=== PATIENT | female | born 1965 | race Caucasian/White ===

== ENCOUNTER 2020-02-02 12:50 | Outpatient (REF) | payer OTHER, SELFPAY ==
[2020-02-03 08:16] LABS: SARS COV2 IgG Negative (Negative)
== END 2020-02-02 12:51 | disposition home or self-care (01) ==
LOC: HO.LAB 12:50
PROVIDERS: PCP Internal Medicine; Visit Provider Internal Medicine
DX: Z20.828 Contact with and (suspected) exposure to other viral communicable diseases (principal)
CPT/HCPCS: 86769

== ENCOUNTER → 2020-07-28 11:15 | Outpatient (BNVA) | payer OTHER, SELFPAY | PROVIDERS: PCP Internal Medicine; Referring Provider Internal Medicine; Visit Provider Surgery | DX: E66.01 Morbid (severe) obesity due to excess calories (principal); R10.9 Unspecified abdominal pain | CPT/HCPCS: 99202 ==

== ENCOUNTER 2020-08-10 14:43 | Outpatient (REF) | payer OTHER, SELFPAY ==
[2020-08-10 16:20] LABS: MANUAL DIFF FLAG NO
[2020-08-10 16:25] LABS: Basophils Absolute Auto 0.1 X10*3/uL (0.0-0.2); Basophils Percent Auto 0.6 % (0-2); Eosinophils Absolute Auto 0.4 X10*3/uL (0.0-0.4); Eosinophils Percent Auto 4.4 % (0-4); Hematocrit 41.1 % (37-47); Hemoglobin 13.2 g/dl (12.0-16.0); Imm Gran Abs Auto 0.04 X10*3/uL (0.00-0.03); Imm Gran Pct Auto 0.5 % (0.0-0.4); Lymphocytes Absolute Auto 1.5 X10*3/uL (1.2-4.9); Mean Corpuscular HGB Conc 32.1 g/dl (31.0-35.0); Mean Corpuscular Hemoglobin 28.4 pg (27.0-33.0); Mean Corpuscular Volume 88.6 fL (80-98); Mean Platelet Volume 9.7 fL (9.4-12.3); Monocytes Absolute Auto 0.5 X10*3/uL (0.1-1.2); Monocytes Percent Auto 5.2 % (2-11); Neutrophils Absolute Auto 6.4 X10*3/uL (2.0-8.3); Neutrophils Percent Auto 72.3 % (45-73); Platelet Count 225 X10*3/uL (160-400); Red Blood Count 4.64 X10*6/uL (4.20-5.50); Red Cell Distribution Width 12.7 % (11.0-16.0); White Blood Count 8.8 X10*3/uL (4.8-10.8)
[2020-08-10 16:53] LABS: Alanine Aminotransferase 17 U/L (0-31); Alkaline Phosphatase 120 U/L (39-117); Anion Gap 13 (12-20); Aspartate Amino Transferase 17 U/L (5-31); Bilirubin Total 0.5 mg/dL (0.0-1.0); Blood Urea Nitrogen 10 mg/dL (9-16); C Reactive Protein 1.67 mg/dL (< or = 0.50); Calcium 9.2 mg/dL (8.4-10.2); Carbon Dioxide 27 mmol/L (22-29); Chloride 105 mmol/L (96-108); Estimated Glomerular Filt Rate > 60; Glucose Random 122 mg/dL (60-115); Potassium 3.7 mmol/L (3.3-5.1); Sodium 141 mmol/L (135-145); Total Protein 6.7 g/dL (6.5-8.0)
[2020-08-10 17:20] LABS: Thyroid Stimulating Hormone 1.39 uIU/mL (0.32-4.0)
[2020-08-10 17:22] LABS: Erythrocyte Sedimentation Rate 37 MM/HR (0-20)
[2020-08-10 17:51] LABS: Ferritin 59 ng/mL (10-250)
== END 2020-08-10 14:44 | disposition home or self-care (01) ==
LOC: HO.LAB 14:43
PROVIDERS: PCP Internal Medicine; Referring Provider Internal Medicine; Visit Provider Physician Assistant
DX: K62.5 Hemorrhage of anus and rectum (principal); R74.01 Elevation of levels of liver transaminase levels; R10.11 Right upper quadrant pain; R19.7 Diarrhea, unspecified; D64.9 Anemia, unspecified; K59.09 Other constipation
CPT/HCPCS: 36415; 80053; 82728; 84443; 85025; 85652; 86140; 99202

== ENCOUNTER 2020-08-11 09:08 | Outpatient (REF) | payer OTHER, SELFPAY ==
[2020-08-18 21:22] LABS: Calprotectin, Fecal 2620 mcg/g
== END 2020-08-11 09:09 | disposition home or self-care (01) ==
LOC: HO.LNP 09:08
PROVIDERS: Visit Provider Physician Assistant
DX: R19.7 Diarrhea, unspecified (principal)
CPT/HCPCS: 83993

== ENCOUNTER 2020-08-12 08:13 | Outpatient (REF) | payer OTHER, SELFPAY ==
--- NOTE | ~2020-08-12 | CT_ITS ---
EXAMINATION: CT ABDOMEN AND PELVIS WITHOUT CONTRAST CLINICAL INFORMATION: Abdominal pain. COMPARISON: Pelvic ultrasound and CT abdomen/pelvis dated 03/19/2019. TECHNIQUE: Multidetector volumetric imaging was performed from the superior aspect of the liver through the pubic symphysis. Sagittal and coronal reformatted images were obtained on the technologist's workstation. This CT examination was performed using dose optimization techniques as appropriate, variously including the following: *Automated exposure control *Adjustment of mA and/or kV according to patient size (this includes techniques or standardized protocols for targeted exams where dose is matched to indication/reason for exam; i.e. extremities or head) *Use of iterative reconstruction technique DLP: 867 mGy-cm FINDINGS: LUNG BASES: The visualized lung bases are unremarkable. LIVER, GALLBLADDER, AND BILIARY TREE: The liver is normal in size, shape, and attenuation. No focal hepatic lesion or biliary ductal dilatation is present. The gallbladder is unremarkable with no evidence of radiopaque gallstones, gallbladder wall thickening, or obvious pericholecystic inflammatory changes. PANCREAS: Unremarkable. SPLEEN: Unremarkable. ADRENAL GLANDS: Unremarkable. KIDNEYS AND URETERS: The kidneys are normal in size, shape, and attenuation. No hydronephrosis, hydroureter, or calculi seen. No perinephric stranding. BLADDER: Nondistended. GASTROINTESTINAL TRACT: Sigmoid diverticulosis with circumferential wall thickening and minimal adjacent fat stranding in the central pelvis, which could represent early diverticulitis in the appropriate clinical setting. No extraluminal air or organized fluid collection to suggest perforation or abscess formation. No small or large bowel obstruction. Unremarkable appendix. PERITONEAL CAVITY: No intra-abdominal free air or free fluid. No intra-abdominal mass or organized fluid collection/abscess formation. ABDOMINAL WALL: Anterior abdominal wall postsurgical changes. Fat-containing periumbilical hernia with a neck measuring up to 2.5 cm. Additional more superior fat-containing anterior abdominal wall hernia with a neck measuring up to 1.7 cm. No herniated bowel loops. No evidence of inflammation or ischemia. LYMPH NODES: Subcentimeter retroperitoneal lymph nodes are unchanged. Mild central mesenteric stranding is unchanged. VASCULAR: Unremarkable. PELVIC VISCERA: Status post hysterectomy. The previously seen cystic mass has been resected. OSSEOUS STRUCTURES: No concerning lytic or blastic osseous lesion. CT/CT abdomen pelvis wo con IMPRESSION: 1. Sigmoid diverticulosis with circumferential wall thickening and minimal adjacent stranding, new when compared to the prior examination. Findings could represent early diverticulitis in the appropriate clinical setting. No evidence of perforation or abscess formation. 2. Interval hysterectomy with resection of the previously seen complex cystic lesion. No new mass, lymphadenopathy, or ascites. 3. Anterior abdominal wall postsurgical change with small, fat-containing hernias. No associated bowel loops or inflammatory/ischemic change.
== END 2020-08-12 08:14 | disposition home or self-care (01) ==
LOC: HO.CT 08:13
PROVIDERS: PCP Internal Medicine; Visit Provider Surgery
DX: R10.9 Unspecified abdominal pain (principal)
CPT/HCPCS: 74176

== ENCOUNTER → 2020-08-18 14:08 | Outpatient (BNVA) | payer OTHER, SELFPAY | PROVIDERS: PCP Internal Medicine; Referring Provider Internal Medicine; Visit Provider Surgery | DX: K46.9 Unspecified abdominal hernia without obstruction or gangrene (principal); E66.01 Morbid (severe) obesity due to excess calories | CPT/HCPCS: 99212 ==

== ENCOUNTER 2020-08-25 11:55 | Day surgery (SDC) | payer OTHER, SELFPAY ==
--- NOTE | 2020-08-24 09:41 | P.CONAN_ITS ---
Documented by User: Sandra Barrios 08/24/20 09:55 HPI - Anesthesia Eval Consult details Narrative: 54yo F for Colonoscopy FORMERLY [facility] Active Problems Active Problems: All Active Problems (Updated 08/20/20 @ 10:27 by Randi Mckeon) Exposure to COVID-19 virus (Acute) Rectal Hemorrhage (Acute) Abdominal hernia (Acute) Abdominal pain (Acute) Morbid obesity (Acute) Past Medical History Medical History (Updated 08/20/20 @ 10:27 by Randi Mckeon) Abdominal hernia Abdominal pain Asthma History of anxiety HTN (hypertension) Impaired fasting blood sugar Morbid obesity Sleep apnea Family History Family History Mother Vascular dementia Colon cancer Father No problems noted. Surgical History Surgical History (Updated 08/20/20 @ 10:27 by Randi Mckeon) History of hernia surgery Hx of colonoscopy Hx of tonsillectomy Social History Social History Household Members: Children Alcohol intake: current Alcohol intake frequency: holidays/special occasions only Patient Tobacco Use Status: Former Tobacco user Advance Directives: No Advance Directives Information Provided: Yes Current occupational status: unemployed Meds Allergies Allergy/AdvReac Type Severity Reaction Status Date / Time No Known Allergies Allergy Verified 08/20/20 10:28 Home Medications Medication Instructions Recorded Confirmed Last Taken Type aspirin 81 mg tablet,delayed 81 mg PO DAILY 07/28/20 08/20/20 Unknown History release albuterol sulfate [ProAir HFA] 2 puff INHALATION Q4-6H PRN 08/20/20 08/20/20 Unknown History Exam Exam Date and Time: August 24, 2020 0941 Assessment and Plan Assessment Anesthesia Assessment: Chart Reviewed Documented by User: Matilde Costello 08/25/20 12:59 PMFSH Past Medical History Medical History (Updated 08/20/20 @ 10:27 by Randi Mckeon) Abdominal hernia Abdominal pain Asthma History of anxiety HTN (hypertension) Impaired fasting blood sugar Morbid obesity Sleep apnea Family History Family History Mother Vascular dementia Colon cancer Father No problems noted. Surgical History Surgical History (Updated 08/20/20 @ 10:27 by Randi Mckeon) History of hernia surgery Hx of colonoscopy Hx of tonsillectomy Social History Social History Household Members: Children Alcohol intake: current Alcohol intake frequency: holidays/special occasions only Patient Tobacco Use Status: Former Tobacco user Advance Directives: No Advance Directives Information Provided: Yes Current occupational status: unemployed Meds Allergies Allergy/AdvReac Type Severity Reaction Status Date / Time No Known Allergies Allergy Verified 08/20/20 10:28 Home Medications Medication Instructions Recorded Confirmed Last Taken Type aspirin 81 mg tablet,delayed 81 mg PO DAILY 07/28/20 08/20/20 Unknown History release albuterol sulfate [ProAir HFA] 2 puff INHALATION Q4-6H PRN 08/20/20 08/20/20 Unknown History Exam Airway Mallampati Class: II TM Dist: >3cm Neck ROM: Full Heart: rrr Lungs: cta Assessment and Plan Assessment Anesthesia Assessment: Anesthesia Plan Discussed and Chart Reviewed Final Anesthetic Review NPO: Yes ASA Class: III Final Preanesthetic Review: No Changes in Pt Med Stat and Consent Obtained/Reviewed Patient Risk: Intermediate Procedure Risk: Intermediate Anesthetic Plan Anesthetic Plan: MAC: Disposition: Standard PACU
[2020-08-25 13:20] VITALS: BP 142/66; PULSE 93; RESP 18; TEMP 36.1; O2SAT 98; BMI 47.4
[2020-08-25] MEDS: Lactated Ringers 1,000 ML 100 ML IVCONT (13:35)
--- NOTE | 2020-08-25 14:41 | MHC.SHP ---
Pre-Procedural Eval Section B Chief Complaint: Rectal Hemorrage Details of Present Illness: mother with colon cancer Relevant Family History (Specify if Yes): Yes Relevant Social History: None Present Medications: see Short Stay Collaborative assessment Medical History: Significant History (Abdominal hernia Abdominal pain Asthma History of anxiety HTN (hypertension) Impaired fasting blood sugar Morbid obesity Sleep apnea) History of Previous Operations: Relevant previous surgery/procedure and date(s) (History of hernia surgery Hx of colonoscopy Hx of tonsillectomy) Allergies: Allergies Allergy/AdvReac Type Severity Reaction Status Date / Time No Known Allergies Allergy Verified 08/20/20 10:28 Review of Systems Sugical H&P ROS: Negative: Constitution, Cardiovascular, Respiratory, Neurological, Psychiatric, Hem-Onc, Allergic/Immunologic, Gastrointestinal, Genitourinary, Musculoskeletal, Integumentary, Endocrine and Eyes/Ears/Nose/Throat Exam Surgical H&P Exam: Normal: HEENT, Normal: Heart, Normal: Lungs, Normal: Extremities, Normal: Abdomen, Normal: Skin and Normal: Neurological Plan Diagnosis/Plan: Unchanged I have reviewed the history and physical and performed a pertinent physical examination on my patient. No changes have occurred unless specified.
--- NOTE | 2020-08-25 14:44 | P.OP_ITS ---
Operative Note Operative Note Date of Service: 08/25/20 Narrative: Operative Information Procedure Description: Colonoscopy COLONOSCOPY Instrument: Olympus variable stiffness adult scope 190L Colonoscopy Monitoring: Vital signs and clinical assessment, continuous EKG monitoring, Pulse oximetry, Carbon Dioxide monitoring and blood pressure monitoring were done throughout the procedure. Colon withdrawal time was 12 minutes. Procedure: The patient was placed in the left lateral decubitis position and pre-procedure medications were administered. After a digital rectal examination of the ano-rectum, the video colonoscope was inserted into the rectum and advanced through the colon to the cecum/TI. The colonoscope was slowly withdrawn in a retrograde panoramic fashion and the colon mucosa was carefully examined including a retroflexed view of the rectum. Findings and interventions are described below. Procedure Difficulty:easy Findings: Terminal Ileum-normal, bx taken Cecum:normal, bx taken Ascending Colon: normal, bx taken Transverse Colon -normal, bx taken Descending Colon:normal, bx taken Sigmoid Colon: many diverticula noted, from anal verge to 25 cm there was erythema with scattered micro abscesses and slough with edema and granularity Rectum: Retroflexion with small internal hemorrhoids, grade I, granularity with erythema and edema, bx taken Anorectum - normal Colon preparation: [place] Bowel Preparation Scale Right colon; 2 Transverse colon: 3 Left colon; 3 (0 = Unprepared colon segment with mucosa not seen due to solid stool that cannot be cleared. 1 = Portion of mucosa of the colon segment seen, but other areas of the colon segment not well seen due to staining, residual stool and/or opaque liquid. 2 = Minor amount of residual staining, small fragments of stool and/or opaque liquid, but mucosa of colon segment seen well. 3 = Entire mucosa of colon segment seen well with no residual staining, small fragments of stool or opaque liquid) Impression and Post Procedure Diagnosis: internal hemorrhoids diverticular disease colitis Plan: High fiber diet leaflet Avoid straining at stool, epsom salts and sitz bath, anusol supps or cream Repeat Colonoscopy in 5 years or earlier if clinically indicated can commence mesalamine enema and assess response, stool sample sent for c diff today avoid nsaids Above findings were reviewed with the patient and relevant handouts were provided if indicated.
--- NOTE | 2020-08-25 14:44 | P.BOP_ITS ---
Brief Operative Note Date of Service: 08/25/20 Pre-op diagnosis: rectal bleeding Post-op diagnosis: same Procedure: see op note Surgeon: Sheela Brown MD Anesthesia: MAC Was an Accounts Payable Analyst used for this Procedure?: No Estimated blood loss (mL): 0 Condition: stable Disposition: PACU
[2020-08-25 15:24] VITALS: BP 111/62; PULSE 81; RESP 16; TEMP 36.4; O2SAT 97
[2020-08-25 15:36] VITALS: BP 117/69; PULSE 76; RESP 16; O2SAT 97
[2020-08-26 09:37] LABS: CDIFF Ag Negative (Negative); CDiff Toxin Negative (Negative)
[2020-08-26 09:38] LABS: CDIFF Internal ctrl Dots and bkg OK (V)
== END 2020-08-25 15:59 | disposition home or self-care (01) ==
PROVIDERS: PCP Internal Medicine; Visit Provider Internal Medicine Gastroenterology
PROC: 0DJD8ZZ Inspection of Lower Intestinal Tract, Via Natural or Artificial Opening Endoscopic (ICD-10-PCS; CPT 45378; principal; 2020-08-25 14:00)
DX: K62.5 Hemorrhage of anus and rectum (principal); R19.4 Change in bowel habit; K64.0 First degree hemorrhoids; K57.30 Diverticulosis of large intestine without perforation or abscess without bleeding; I10 Essential (primary) hypertension; J45.909 Unspecified asthma, uncomplicated; E66.01 Morbid (severe) obesity due to excess calories; Z68.42 Body mass index [BMI] 45.0-49.9, adult; Z79.82 Long term (current) use of aspirin; Z79.899 Other long term (current) drug therapy; Z80.0 Family history of malignant neoplasm of digestive organs
CPT/HCPCS: 45380; 87324; 87449; 88305

== ENCOUNTER → 2020-09-02 14:39 | Outpatient (BNVA) | payer OTHER, SELFPAY | PROVIDERS: PCP Internal Medicine; Referring Provider Internal Medicine; Visit Provider Surgery | DX: K46.9 Unspecified abdominal hernia without obstruction or gangrene (principal); E66.01 Morbid (severe) obesity due to excess calories; I10 Essential (primary) hypertension; R73.01 Impaired fasting glucose; Z68.42 Body mass index [BMI] 45.0-49.9, adult; Z87.891 Personal history of nicotine dependence | CPT/HCPCS: 99212 ==

== ENCOUNTER → 2020-09-06 08:27 | Outpatient (BNVA) | payer OTHER, SELFPAY | PROVIDERS: PCP Internal Medicine; Visit Provider Physician Assistant ==

== ENCOUNTER 2020-09-14 09:24 | Day surgery (SDC) | payer OTHER, SELFPAY ==
[2020-09-07 14:55] VITALS: BMI 47.4
--- NOTE | 2020-09-10 09:43 | P.CONAN_ITS ---
Documented by User: Sandra Maney 09/10/20 09:44 HPI - Anesthesia Eval Consult details Narrative: 54yo F for Repair of Incisional x2, Umbilicus & Epigastric Hernias with Mesh s/p colo with MAC 08/25/20 [facility]LY [facility] Active Problems Active Problems: All Active Problems (Updated 09/08/20 @ 11:10 by Janina Hernandez PA-C) Exposure to COVID-19 virus (Acute) Rectal Hemorrhage (Acute) Colitis (Acute) Abdominal hernia (Acute) Abdominal pain (Acute) Morbid obesity (Acute) Past Medical History Medical History Abdominal hernia Abdominal pain Asthma History of anxiety HTN (hypertension) Impaired fasting blood sugar Morbid obesity PONV (postoperative nausea and vomiting) Sleep apnea Family History Family History Mother Vascular dementia Colon cancer Father No problems noted. Surgical History Surgical History History of hernia surgery History of hysterectomy Hx of colonoscopy Hx of tonsillectomy Social History Social History Household Members: Children Are you a primary rn palliative care to a significant other at home: No Do you presently have visiting nurse or other home services: No Alcohol intake: current Alcohol intake frequency: holidays/special occasions only Patient Tobacco Use Status: Former Tobacco user Tobacco use type: Cigarette Use of substances other than those prescribed or required for medical reasons: No Have you been hit, kicked, punched, or otherwise hurt by someone within the past year? If so, by whom?: No Are you DNR?: No Advance Directives: No Advance Directives Information Provided: No Advance Directives on File: No Recently lost weight without trying: No Eating poorly because of decreased appetite: No Nutrition Risks: No Nutritional Risk Patient : No Current occupational status: unemployed Meds Allergies Allergy/AdvReac Type Severity Reaction Status Date / Time No Known Allergies Allergy Verified 09/02/20 14:55 Home Medications Medication Instructions Recorded Confirmed Last Taken Type aspirin 81 mg tablet,delayed 81 mg PO DAILY 0509/07/20 08/24/20 23:00 History release albuterol sulfate [ProAir HFA] 2 puff INHALATION Q4-6H PRN 08/20/20 09/07/20 Unknown History Exam Exam Date and Time: September 10, 2020 0943 Height,Weight and Vital Signs: Height 5 ft 5 in Weight 129.274 kg Assessment and Plan Assessment Anesthesia Assessment: Chart Reviewed Documented by User: Anton Aden MD 09/14/20 10:46 [facility] Past Medical History Medical History Abdominal hernia Abdominal pain Asthma History of anxiety HTN (hypertension) Impaired fasting blood sugar Morbid obesity PONV (postoperative nausea and vomiting) Sleep apnea Family History Family History Mother Vascular dementia Colon cancer Father No problems noted. Family history of problems with anesthesia: No Surgical History Surgical History History of hernia surgery History of hysterectomy Hx of colonoscopy Hx of tonsillectomy History of Problems with Anesthesia: Yes (PONV) Social History Social History Household Members: Children Are you a primary rn palliative care to a significant other at home: No Do you presently have visiting nurse or other home services: No Alcohol intake: current Alcohol intake frequency: holidays/special occasions only Patient Tobacco Use Status: Former Tobacco user Tobacco use type: Cigarette Use of substances other than those prescribed or required for medical reasons: No Have you been hit, kicked, punched, or otherwise hurt by someone within the past year? If so, by whom?: No Are you DNR?: No Advance Directives: No Advance Directives Information Provided: No Advance Directives on File: No Recently lost weight without trying: No Eating poorly because of decreased appetite: No Nutrition Risks: No Nutritional Risk Patient : No Current occupational status: unemployed Meds Allergies Allergy/AdvReac Type Severity Reaction Status Date / Time No Known Allergies Allergy Verified 09/02/20 14:55 Home Medications Medication Instructions Recorded Confirmed Last Taken Type aspirin 81 mg tablet,delayed 81 mg PO DAILY 07/28/20 09/07/20 08/24/20 23:00 History release albuterol sulfate [ProAir HFA] 2 puff INHALATION Q4-6H PRN 08/20/20 09/07/20 Unknown History Exam Airway Mallampati Class: III TM Dist: >3cm Loose/Missing/Broken Teeth: No Assessment and Plan Assessment Anesthesia Assessment: Anesthesia Plan Discussed and Chart Reviewed Final Anesthetic Review NPO: Yes ASA Class: III Final Preanesthetic Review: No Changes in Pt Med Stat, Meds/Allgs Chart Reviewed, Consent Obtained/Reviewed and Anes Risks/Benef Reviewed Patient Risk: Intermediate Procedure Risk: Low Anesthetic Plan Anesthetic Plan: GA and Agree w/ Assess. and Plan Disposition: Standard PACU
[2020-09-14] VITALS (13 sets, daily range): BP systolic 116–148; BP diastolic 51–69; PULSE 64–92; RESP 16–18; TEMP 36.5; O2SAT 93–99
[2020-09-14] MEDS: Scopolamine 1.5 MG PATCH.TD.3 TRANSDERMA (10:06)
--- NOTE | 2020-09-14 10:22 | MHC.SHP ---
Pre-Procedural Eval Section A Date of Service: 09/14/20 Section B Chief Complaint: Abdominal hernias Allergies: Allergies Allergy/AdvReac Type Severity Reaction Status Date / Time No Known Allergies Allergy Verified 09/02/20 14:55 Plan I have reviewed the history and physical and performed a pertinent physical examination on my patient. No changes have occurred unless specified.
[2020-09-14] MEDS: Lactated Ringers 1,000 ML 100 ML IVCONT (10:41)
--- NOTE | 2020-09-14 12:24 | PM.OP ---
Brief Operative Note Date of Service: 09/14/20 Pre-op diagnosis: incisional hernias x2 Post-op diagnosis: other ( incisional hernia on the supraumbilical area) Procedure: repair of incisional hernia on the supraumbilical area with Ventralex mesh, exploration of incision on the epigastric area Implants: mesh Surgeon: Casper Stinson MD Was an Valving Machine Operator used for this Procedure?: No Estimated blood loss (mL): 10 Pathology: none sent Condition: stable Disposition: PACU
--- NOTE | 2020-09-14 12:25 | P.OP_ITS ---
Operative Note Operative Note Date of Service: 09/14/20 Narrative: Preop diagnosis: Incisional hernias x2 Postop diagnosis: Incisional hernia on the supra umbilical area Procedure: Repair of incisional hernia on the supraumbilical area with Ventralex mesh, exploration of incision on the epigastric area surgeon: Casper Stinson MD inventory control assistant : none Patient is a 54-year-old female with a history of a long midline laparotomy incision for gynecologic surgery in the past. She had been complaining of some pain on the area of the umbilicus and just to the left of this. I sent for CT scan which showed hernia on the supraumbilical area with a defect about 2.7 cm[address] Review of the CT scan also shows that there was another much smaller hernia on the epigastric area.. After discussions with her, she wanted to proceed with repair of both of these hernias. She understood the technique of the planned procedure as well as the risks, benefits, and alternatives She was brought to the operating room and placed supine the table under general anesthesia via laryngeal mask airway. A surgical time-out was done. The patient received cefazolin 2 g IV preoperatively. The abdomen is prepped and draped in the usual sterile fashion. I infiltrated the planned line of the inc isions in the supraumbilical area as well as in the epigastric area based on the CAT scan images. I made a short incision longitudinally along the old laparotomy incision on the supraumbilical area using blade 15.. This was carried down through the full-thickness skin subcutaneous fat. Please note that the patient severe morbid obesity with a BMI 47 so we had to go through a very thick amount of subcutaneous fat before we were able to identify fascia. I carefully dissected around this fascia using Metzenbaum scissors and I was able to eventually identify hernia containing fat. Dissected the hernia sharply off of the rest of the thick subcutaneous layer down to the fascia. By doing so was able to define the fascial defect. I applied a Rozina clamp on the fascia and by doing so was able to dissect the hernia off of the fascial defect circumferentially. I was able to visualize the underside of the fascia directly. I made sure that there were no bowel loops surrounding this area. I continued to dissect with visualization to she clear margins around the fascial defect. Visualization was periodically difficult in view of the patient's morbid obesity with very thick amount of subcutaneous fat. After we were able to clearly define the fascial defect, we measured this to about 2.5 cm. I used a small-sized Ventralex mesh and this was position under the fascial defect. This was flattened. I secured the Prolene straps of the mesh to the fascial edge with Prolene to sutures. I trimmed the Prolene straps flush on the the layer. I closed the fascial defect with [id number] Maxon 1 stitch. I irrigated the area. I closed the subcutaneous layer with Dexon 3-0 interrupted sutures. Skin closure was achieved with Dexon 4-0 subcuticular running stitch. I then proceeded to make an incision on the epigastric area where the smaller hernia was seen on the CAT scan. This was done using a blade 15. This wasb carried down through the full-thickness of the skin and thick subcutaneous fat. I would continue to dissect until was able to expose the fascial layer. I could not visualize any hernia at all and even with palpation I could not identify any defect. I continued to dissect around this area sharply with Metzenbaum scissors and bluntly as well. I expose more of the fascia and actually extended the incision a little bit both superiorly and inferiorly. I continued to expose more of the fascia in the midline of the epigastric area and reviewed the imaging studies in the operating room. Despite this, with extensive exposure, we could not identify any hernia at all. I therefore decided not to exceed keep extending the incision especially as the imaging studies showed a very small hernia with fat. I irrigated the area and reapposed the deep subcutaneous layer with Dexon 3-0 interrupted sutures. I closed the incision with a subcuticular running Dexon 4- 0 stitch as well. I infiltrated both areas with Marcaine 0.5% for postop analgesia. Steri-Strips and dressings were applied. The procedure was then completed. The patient tolerated procedure well. There were no complication noted. Initial fine counts of sponges and instruments were correct. Estimated blood loss about 20 cc The patient is extubated without difficulty and transferred to the recovery room with stable vital signs.
[2020-09-14] MEDS: oxyCODONE HCl Immed Release 5 MG TABLET PO (12:40)
[2020-09-14] MEDS: Acetaminophen 325 MG TABLET 650 MG PO (12:41)
[2020-09-14] MEDS: Ketorolac Tromethamine 15 MG/ML VIAL IVPUSH (12:43)
[2020-09-14] MEDS: ondansetron HCL 4 MG/2 ML VIAL IVPUSH (13:15)
[2020-09-14] MEDS: fentaNYL citrate/PF 100 MCG/2 ML VIAL 50 MCG IVPUSH (13:20)
== END 2020-09-14 15:35 | disposition home or self-care (01) ==
PROVIDERS: PCP Internal Medicine; Visit Provider Surgery
PROC: (CPT 49560; principal; 2020-09-14 11:20)
DX: K43.2 Incisional hernia without obstruction or gangrene (principal); K42.9 Umbilical hernia without obstruction or gangrene; E66.01 Morbid (severe) obesity due to excess calories; Z68.42 Body mass index [BMI] 45.0-49.9, adult; J45.909 Unspecified asthma, uncomplicated; I10 Essential (primary) hypertension; G47.33 Obstructive sleep apnea (adult) (pediatric); R73.01 Impaired fasting glucose; Z87.891 Personal history of nicotine dependence; Z79.82 Long term (current) use of aspirin; Z79.899 Other long term (current) drug therapy
CPT/HCPCS: 49560 ×2; 49568; C1781; J0690; J1885; J2250; J2405; J3010

== ENCOUNTER 2020-09-16 07:28 | Emergency (ER) | payer OTHER, SELFPAY ==
--- NOTE | 2020-09-16 | ECG_ITS ---
Test Reason : CHEST PAIN Blood Pressure : / mmHG Vent. Rate : 066 BPM Atrial Rate : 066 BPM P-R Int : 138 ms QRS Dur : 080 ms QT Int : 376 ms P-R-T Axes : 023 -03 027 degrees QTc Int : 394 ms Normal sinus rhythm with sinus arrhythmia Normal ECG When compared with ECG of 09-OCT-2004 19:52, No significant change was found Referred By: Generic ED Physician Electronically Signed By:ORIANA THOMAS
--- NOTE | ~2020-09-16 | US_ITS ---
EXAMINATION: US VENOUS ULTRASOUND WITH DOPPLER LOWER EXTREMITY, BILATERAL CLINICAL INFORMATION: Chest pain. Recent hernia repair. Postop. Assess for occult DVT. COMPARISON: None TECHNIQUE: Ultrasound of the deep veins is performed from the hip to the calf with compression sonography and color and pulse Doppler assessment. Spectral analysis with color-flow imaging is performed. Examination is technically challenging secondary to patient body habitus. FINDINGS: RIGHT: There is normal venous compression and respiratory variation and augmented flow. The visualized common femoral vein, superficial femoral vein, profunda femoral vein, popliteal vein, and the trifurcation region shows no evidence of deep venous thrombosis. No visible popliteal fossa cyst. LEFT: There is normal venous compression and respiratory variation and augmented flow. The visualized common femoral vein, superficial femoral vein, profunda femoral vein, popliteal vein, and the trifurcation region shows no evidence of deep venous thrombosis. No visible popliteal fossa cyst. US/US venous duplex LE BI IMPRESSION: 1. No DVT demonstrated in the bilateral lower extremity. 2. Technically challenging study secondary to patient body habitus. If the patient's symptoms persist, followup ultrasound in 5 days 7 days might be of value to exclude proximal propagation from a non-visualized calf vein.
--- NOTE | ~2020-09-16 | XR_ITS ---
EXAMINATION: XR CHEST CLINICAL INFORMATION: Chest pain COMPARISON: CT abdomen 08/12/2020 TECHNIQUE: Portable upright AP view of the chest was obtained. FINDINGS: The lungs are clear. There is no pneumothorax or pleural reaction. No airspace consolidation or effusion. The heart is normal in size. The hilar and mediastinal contours are unremarkable. No acute bony abnormality. XR/XR chest 1V IMPRESSION: Unremarkable examination.
[2020-09-16 07:33] VITALS: BP 148/75; PULSE 82; RESP 17; TEMP 36.8; O2SAT 99; BMI 46.4
--- NOTE | 2020-09-16 07:54 | ED_ITS ---
HPI - Chest Pain General Chief Complaint: Chest Pain Stated Complaint: lt side chest & breast pain Time Seen by Provider: 09/16/20 07:53 Source: patient Mode of arrival: ambulatory Limitations: no limitations History of Present Illness HPI narrative: 54-year-old female came in for evaluation of left-sided chest pain. Left-sided chest pain described as dull aching pain localized to the left side of the chest, pain is constant since last night, moderate 5/10, pain is there at rest, nothing makes the pain worse, nothing makes the pain better. No other associated symptoms. Patient just had abdominal surgery for hernia repair 2 days ago. Patient declined lower extremity swelling or pain. Related Data Home Medications Medication Instructions Recorded Confirmed aspirin 81 mg tablet,delayed 81 mg PO DAILY 07/28/20 09/07/20 release albuterol sulfate [ProAir HFA] 2 puff INHALATION Q4-6H PRN 08/20/20 09/07/20 Previous Rx's Medication Instructions Recorded amlodipine 10 mg tablet 10 mg PO DAILY #90 tab 03/02/20 mesalamine [sfRowasa] 4 g MN BEDTIME #1680 ml 08/25/20 mesalamine 0.375 gram 1.5 g PO QAM #120 cap 09/07/20 capsule,extended release 24 hr oxycodone-acetaminophen [Percocet] 1 - 2 tab PO Q4-6H PRN #30 tab 09/14/20 Allergies Allergy/AdvReac Type Severity Reaction Status Date / Time No Known Allergies Allergy Verified 09/02/20 14:55 Review of Systems Review of Systems: All other systems are reviewed and are negative Constitutional: Reports as per HPI and Reports no additional constitutional complaints Eyes: Reports as per HPI and Reports no additional eye complaints Reports system reviewed and no additional complaints, except as documented Cardiovascular: Reports as per HPI and Reports no additional cardiovascular complaints Respiratory: Reports as per HPI and Reports no additional respiratory complaints Gastrointestinal: Reports as per HPI and Reports no additional gastrointestinal complaints Genitourinary: Reports no additional female genitourinary complaints Musculoskeletal: Reports no additional musculoskeletal complaints Skin/Breast: Reports system reviewed and no additional complaints, except as docu Psychiatric: Reports no additional psychiatric complaints Endocrine: Reports no additional endocrine complaints Hematologic/Lymphatic: Reports no additional hematologic/lymphatic complaints Allergic/Immunologic: Reports no additional allergic/immunologic complaints Reports system reviewed and no additional complaints, except as documented and Reports Abnormal speech present [facility] Past Medical History Medical History Abdominal hernia Abdominal pain Asthma History of anxiety HTN (hypertension) Impaired fasting blood sugar Morbid obesity PONV (postoperative nausea and vomiting) Sleep apnea Surgical History History of hernia surgery History of hysterectomy Hx of colonoscopy Hx of tonsillectomy Family History Family History Mother Vascular dementia Colon cancer Father No problems noted. Social History Social History Household Members: Children Are you a primary customer care consultant to a significant other at home: No Do you presently have visiting nurse or other home services: No Alcohol intake: current Alcohol intake frequency: holidays/special occasions only Patient Tobacco Use Status: Former Tobacco user Tobacco use type: Cigarette Advance Directives: No Advance Directives Information Provided: Yes Patient : No Current occupational status: unemployed Physical Exam Vital Signs: Vital Signs: Last Vital Signs Temp 98.3 F 09/16/20 07:33 Pulse 61 09/16/20 10:56 Resp 16 09/16/20 10:56 BP 130/51 L 09/16/20 10:56 Pulse Ox 99 09/16/20 09:15 Body Mass Index 46.4 vital signs have been reviewed as appeared to be correct. Blood pressure normal. Heart rate normal. Respiration rate normal. Temperature normal. Oxygen saturation normal. Appearance: Alert. Oriented X3. No acute distress. Head: Normal external exam. Normocephalic. Atraumatic. No Curry signs noted. No raccoon eyes noted Eyes: PERRLA. EOMI. Conjunctiva and sclera normal. Eyelids normal. ENT: TM's Normal. Pharynx normal. Uvula midline. Moist mucous membranes. No tr ismus noted. No drooling noted. No muffled voice noted. Neck: Normal inspection. Neck supple. FROM. No adenopathy. Thyroid Normal. No meningeal signs. No neck mass noted. CVS: Normal heart rate and rhythm. Heart sound normal. No murmurs noted. Pulses normal throughout. Respiratory: No respiratory distress. Painless inspiration. Breath sounds normal. No wheezes/rales/rhonchi noted. Left-sided chest wall tenderness to touch or moving left arm.. No accessory muscle usage noted or decreased air movement noted. Abdomen: Soft and nontender. Incisional dressing is dry, clean, and intact. Bowel sounds normal in all 4 quadrants. No distention noted. No organomegaly noted. No visible injury noted. Back: No CVA tenderness. Full range of motion noted. Skin: Skin warm and dry. Normal skin color. Normal skin turgor. No rashes/lesions/lacerations noted. Extremities: No lower extremity edema. Extremities exhibit normal range of motion. Extremities nontender. Neuro: Oriented X 3. No motor deficit. No sensory deficit. Reflexes normal. Course Course Course Narrative: Assessment and plan. 54-year-old female status post abdominal surgery of hernia repaired 2 days ago came in with left-sided chest pain, concern after surgery was pain due to PE, slight elevation of the D-dimer which is likely after surgery and wound healing, patient's vital signs remained stable and not indicated hypoxia or tachycardia or tachypnea. Patient had lower extremities ultrasound showed no DVT and patient has no symptoms of DVT. also unremarkable cardiac workup with a negative high sensitive troponin. Left-sided chest pain likely muscular pain. Patient reassured and Will discharge home to follow-up with PCP. MDM - Chest Pain Lab Data Attestation: I reviewed the patient's lab results. Result diagrams: 09/16/20 08:06 09/16/20 08:06 Labs: Lab Results 09/16/20 09/16/20 09/16/20 Range/Units 08:06 08:06 08:06 WBC 10.5 (4.8-10.8) X10*3/uL RBC 4.66 (4.20-5.50) X10*6/uL Hgb 13.3 (12.0-16.0) g/dl Hct 42.2 (37-47) % MCV 90.6 (80-98) fL MCH 28.5 (27.0-33.0) pg MCHC 31.5 (31.0-35.0) g/dl RDW 13.4 (11.0-16.0) % Plt Count 218 (160-400) X10*3/uL MPV 10.1 (9.4-12.3) fL Immature Gran % (Auto) 0.4 (0.0-0.4) % Neut % (Auto) 70.2 (45-73) % Lymph % (Auto) 21.1 (20-40) % Catron % (Auto) 5.8 (2-11) % Eos % (Auto) 2.1 (0-4) % Baso % (Auto) 0.4 (0-2) % Lymph # (Auto) 2.2 (1.2-4.9) X10*3/uL Catron # (Auto) 0.6 (0.1-1.2) X10*3/uL Eos # (Auto) 0.2 (0.0-0.4) X10*3/uL Baso # (Auto) 0.0 (0.0-0.2) X10*3/uL Abs Immat Gran (auto) 0.04 H (0.00-0.03) X10*3/uL Absolute Neuts (auto) 7.3 (2.0-8.3) X10*3/uL Absolute Nucleated RBC 0.000 (0.0-0.012) X10*3/uL Nucleated RBC % (auto) 0.0 (0.0-0.2) /100WBC D-Dimer NG/ML Sodium 142 (135-145) mmol/L Potassium 4.2 (3.3-5.1) mmol/L Chloride 105 (96-108) mmol/L Carbon Dioxide 24 (22-29) mmol/L Anion Gap 17 (12-20) BUN 12 (9-16) mg/dL Creatinine 0.84 (0.5-1.4) mg/dL Estim Creat Clear Calc 101.3 Estimated GFR > 60 Random Glucose 98 (60-115) mg/dL Calcium 9.8 D (8.4-10.2) mg/dL Total Bilirubin 0.5 (0.0-1.0) mg/dL Direct Bilirubin 0.2 (0.0-0.5) mg/dL AST 22 (5-31) U/L ALT 16 (0-31) U/L Alkaline Phosphatase 108 (39-117) U/L Troponin I High Sens < 3.5 (<3.5-17.0) ng/L Total Protein 7.7 (6.5-8.0) g/dL Albumin 4.4 (3.5-5.0) g/dL Lipase 36 (8-78) U/L Urine Color Urine Appearance Urine pH (5.0-8.0) Ur Specific [place] (1.005-1.025) Urine Protein (NEG-TRACE) MG/DL Urine Glucose (UA) (NEG) MG/DL Urine Ketones (NEG) MG/DL Urine Blood (NEG) Urine Nitrite (NEG) Ur Leukocyte Esterase (NEG) Urine RBC (0) /HPF Urine WBC (0-4) /HPF Ur Squamous Epith Cells /LPF Urine Bacteria /LPF 09/16/20 09/16/20 Range/Units 08:06 09:32 WBC (4.8-10.8) X10*3/uL RBC (4.20-5.50) X10*6/uL Hgb (12.0-16.0) g/dl Hct (37-47) % MCV (80-98) fL MCH (27.0-33.0) pg MCHC (31.0-35.0) g/dl RDW (11.0-16.0) % Plt Count (160-400) X10*3/uL MPV (9.4-12.3) fL Immature Gran % (Auto) (0.0-0.4) % Neut % (Auto) (45-73) % Lymph % (Auto) (20-40) % Catron % (Auto) (2-11) % Eos % (Auto) (0-4) % Baso % (Auto) (0-2) % Lymph # (Auto) (1.2-4.9) X10*3/uL [place] # (Auto) (0.1-1.2) X10*3/uL Eos # (Auto) (0.0-0.4) X10*3/uL Baso # (Auto) (0.0-0.2) X10*3/uL Abs Immat Gran (auto) (0.00-0.03) X10*3/uL Absolute Neuts (auto) (2.0-8.3) X10*3/uL Absolute Nucleated RBC (0.0-0.012) X10*3/uL Nucleated RBC % (auto) (0.0-0.2) /100WBC D-Dimer 387 NG/ML Sodium (135-145) mmol/L Potassium (3.3-5.1) mmol/L Chloride (96-108) mmol/L Carbon Dioxide (22-29) mmol/L Anion Gap (12-20) BUN (9-16) mg/dL Creatinine (0.5-1.4) mg/dL Estim Creat Clear Calc Estimated GFR Random Glucose (60-115) mg/dL Calcium (8.4-10.2) mg/dL Total Bilirubin (0.0-1.0) mg/dL Direct Bilirubin (0.0-0.5) mg/dL AST (5-31) U/L ALT (0-31) U/L Alkaline Phosphatase (39-117) U/L Troponin I High Sens (<3.5-17.0) ng/L Total Protein (6.5-8.0) g/dL Albumin (3.5-5.0) g/dL Lipase (8-78) U/L Urine Color YELLOW Urine Appearance CLEAR Urine pH 6.0 (5.0-8.0) Ur Specific [place] 1.010 (1.005-1.025) Urine Protein NEG (NEG-TRACE) MG/DL Urine Glucose (UA) NEG (NEG) MG/DL Urine Ketones NEG (NEG) MG/DL Urine Blood TRACE (NEG) Urine Nitrite NEG (NEG) Ur Leukocyte Esterase NEG (NEG) Urine RBC 1-4 (0) /HPF Urine WBC 0-2 (0-4) /HPF Ur Squamous Epith Cells TRACE /LPF Urine Bacteria NONE /LPF Imaging Data Chest x-ray: Radiologist's impression: Unremarkable examination. ECG Data ECG #1: Interpretation: Normal sinus rhythm at 66 beats per minutes, normal axis, normal intervals, no ST-T changes. Discharge Plan Discharge Clinical Impression: Chest pain Patient Disposition: Home, Self-Care Instructions: Chest Wall Pain (ED) Prescriptions: No Action amlodipine 10 mg tablet 10 mg PO DAILY Qty: 90 RF: 8 mesalamine [Apriso] 0.375 gram capsule,extended release 24hr 1.5 g PO QAM Qty: 120 RF: 1 albuterol sulfate [ProAir HFA] 90 mcg/actuation Hfa Aerosol Inhaler 2 puff INHALATION Q4-6H PRN (Reason: Wheezing) RF: 0 mesalamine [sfRowasa] 4 gram/60 mL enema 4 g MN BEDTIME Qty: 1680 RF: 1 oxycodone-acetaminophen [Percocet] 5-325 mg tablet 1 - 2 tab PO Q4-6H PRN (Reason: pain) Qty: 30 RF: 0 aspirin [Adult Low Dose Aspirin] 81 mg tablet,delayed release (DR/EC) 81 mg PO DAILY RF: 0 Referrals: Devin Dos Santos MD [Primary Care Provider] - 2 days
[2020-09-16] MEDS: 0.9 % Sodium Chloride 1,000 ML 999 ML IVCONT (08:08)
[2020-09-16 08:16] LABS: MANUAL DIFF FLAG NO
[2020-09-16 08:17] LABS: Basophils Percent Auto 0.4 % (0-2); Eosinophils Absolute Auto 0.2 X10*3/uL (0.0-0.4); Eosinophils Percent Auto 2.1 % (0-4); Hematocrit 42.2 % (37-47); Hemoglobin 13.3 g/dl (12.0-16.0); Imm Gran Abs Auto 0.04 X10*3/uL (0.00-0.03); Imm Gran Pct Auto 0.4 % (0.0-0.4); Lymphocytes Absolute Auto 2.2 X10*3/uL (1.2-4.9); Lymphocytes Percent Auto 21.1 % (20-40); Mean Corpuscular HGB Conc 31.5 g/dl (31.0-35.0); Mean Corpuscular Hemoglobin 28.5 pg (27.0-33.0); Mean Corpuscular Volume 90.6 fL (80-98); Mean Platelet Volume 10.1 fL (9.4-12.3); Monocytes Absolute Auto 0.6 X10*3/uL (0.1-1.2); Monocytes Percent Auto 5.8 % (2-11); Neutrophils Absolute Auto 7.3 X10*3/uL (2.0-8.3); Neutrophils Percent Auto 70.2 % (45-73); Platelet Count 218 X10*3/uL (160-400); Red Blood Count 4.66 X10*6/uL (4.20-5.50); Red Cell Distribution Width 13.4 % (11.0-16.0); White Blood Count 10.5 X10*3/uL (4.8-10.8)
[2020-09-16 08:34] LABS: D Dimer 387 NG/ML
[2020-09-16 08:42] LABS: Troponin-I High Sensitivity < 3.5 ng/L (<3.5-17.0)
[2020-09-16 09:15] VITALS: BP 147/78; PULSE 61; RESP 18; O2SAT 99
[2020-09-16 09:31] LABS: Alanine Aminotransferase 16 U/L (0-31); Albumin Level 4.4 g/dL (3.5-5.0); Alkaline Phosphatase 108 U/L (39-117); Anion Gap 17 (12-20); Aspartate Amino Transferase 22 U/L (5-31); Bilirubin Direct 0.2 mg/dL (0.0-0.5); Bilirubin Total 0.5 mg/dL (0.0-1.0); Blood Urea Nitrogen 12 mg/dL (9-16); Calcium 9.8 mg/dL (8.4-10.2); Carbon Dioxide 24 mmol/L (22-29); Chloride 105 mmol/L (96-108); Creatinine Clr Calc Pharmacy 101.3; Estimated Glomerular Filt Rate > 60; Glucose Random 98 mg/dL (60-115); Lipase 36 U/L (8-78); Potassium 4.2 mmol/L (3.3-5.1); Sodium 142 mmol/L (135-145); Total Protein 7.7 g/dL (6.5-8.0)
[2020-09-16 09:40] LABS: Appearance Urine CLEAR; Color Urine YELLOW; Glucose Urine UA NEG (NEG); Leukocyte Esterase Urine NEG (NEG); Nitrite Urine NEG (NEG); Urine Blood TRACE (NEG); Urine Ketones NEG (NEG); Urine Protein NEG (NEG-TRACE)
[2020-09-16 09:49] LABS: Squamous Epithelial Cell Urine TRACE /LPF; WBC Urine 0-2 /HPF (0-4)
[2020-09-16 10:56] VITALS: BP 130/51; PULSE 61; RESP 16
== END 2020-09-16 11:38 | disposition home or self-care (01) ==
PROVIDERS: Emergency Provider Emergency Medicine; PCP Internal Medicine
DX: R07.9 Chest pain, unspecified (principal); I10 Essential (primary) hypertension; J45.909 Unspecified asthma, uncomplicated; Z79.899 Other long term (current) drug therapy; Z98.890 Other specified postprocedural states
CPT/HCPCS: 36415; 71045; 80048; 80076; 81001; 83690; 84484; 85025; 85379; 93005; 93970; 96360; 99284

== ENCOUNTER → 2020-10-06 10:37 | Outpatient (BNVA) | payer OTHER, SELFPAY | PROVIDERS: PCP Internal Medicine; Visit Provider Surgery | DX: Z48.815 Encounter for surgical aftercare following surgery on the digestive system (principal); Z87.19 Personal history of other diseases of the digestive system | CPT/HCPCS: 99212 ==

== ENCOUNTER → 2020-10-27 11:38 | Outpatient (BNVA) | payer OTHER, SELFPAY | PROVIDERS: PCP Internal Medicine; Visit Provider Surgery | DX: K46.9 Unspecified abdominal hernia without obstruction or gangrene (principal); I10 Essential (primary) hypertension; R73.01 Impaired fasting glucose; E66.01 Morbid (severe) obesity due to excess calories; K91.0 Vomiting following gastrointestinal surgery; Z87.891 Personal history of nicotine dependence | CPT/HCPCS: 99212 ==

== ENCOUNTER → 2020-12-14 10:12 | Outpatient (BNVA) | payer OTHER, SELFPAY | PROVIDERS: PCP Internal Medicine; Visit Provider Internal Medicine Gastroenterology ==

== ENCOUNTER 2020-12-18 10:02 | Outpatient (REF) | payer OTHER, SELFPAY ==
[2020-12-24 02:02] LABS: Calprotectin, Fecal 637 mcg/g
== END 2020-12-18 10:03 | disposition home or self-care (01) ==
LOC: HO.LNP 10:02
PROVIDERS: Visit Provider Internal Medicine Gastroenterology
DX: K52.9 Noninfective gastroenteritis and colitis, unspecified (principal)
CPT/HCPCS: 83993

== ENCOUNTER 2021-02-04 10:08 | Outpatient (REF) | payer OTHER, SELFPAY ==
[2021-02-09 02:37] LABS: Calprotectin, Fecal 2100 mcg/g
== END 2021-02-04 10:09 | disposition home or self-care (01) ==
LOC: HO.LNP 10:08
PROVIDERS: Visit Provider Internal Medicine Gastroenterology
DX: K52.9 Noninfective gastroenteritis and colitis, unspecified (principal)
CPT/HCPCS: 83993

== ENCOUNTER 2021-06-20 09:41 | Outpatient (REF) | payer OTHER, SELFPAY ==
[2021-06-20 10:02] LABS: MANUAL DIFF FLAG NO
[2021-06-20 11:08] LABS: Basophils Absolute Auto 0.1 X10*3/uL (0.0-0.2); Basophils Percent Auto 0.7 % (0-2); Eosinophils Absolute Auto 0.5 X10*3/uL (0.0-0.4); Eosinophils Percent Auto 7.1 % (0-4); Hematocrit 32.2 % (37.0-47.0); Hemoglobin 9.8 g/dl (12.0-16.0); Imm Gran Abs Auto 0.04 X10*3/uL (0.00-0.03); Imm Gran Pct Auto 0.5 % (0.0-0.4); Lymphocytes Absolute Auto 1.4 X10*3/uL (1.2-4.9); Lymphocytes Percent Auto 18.4 % (20-40); Mean Corpuscular HGB Conc 30.4 g/dl (31.0-35.0); Mean Corpuscular Hemoglobin 26.1 pg (27.0-33.0); Mean Corpuscular Volume 85.9 fL (80.0-98.0); Mean Platelet Volume 9.9 fL (9.4-12.3); Monocytes Absolute Auto 0.7 X10*3/uL (0.1-1.2); Monocytes Percent Auto 9.6 % (2-11); Neutrophils Absolute Auto 4.9 x10*3/uL (2.0-8.3); Neutrophils Percent Auto 63.7 % (45-73); Platelet Count 308 X10*3/uL (160-400); Red Blood Count 3.75 X10*6/uL (4.20-5.50); Red Cell Distribution Width 13.2 % (11.0-16.0); White Blood Count 7.6 X10*3/uL (4.8-10.8)
[2021-06-20 11:56] LABS: Erythrocyte Sedimentation Rate 80 MM/HR (0-20)
[2021-06-20 12:03] LABS: Ferritin 13 ng/mL (10-250)
[2021-06-20 12:11] LABS: Alanine Aminotransferase 23 U/L (0-31); Albumin Level 3.5 g/dL (3.5-5.0); Alkaline Phosphatase 84 U/L (39-117); Anion Gap 14 (12-20); Aspartate Amino Transferase 18 U/L (5-31); Bilirubin Total 0.2 mg/dL (0.0-1.0); Blood Urea Nitrogen 7 mg/dL (9-16); C Reactive Protein 5.32 mg/dL (< or = 0.50); Calcium 9.3 mg/dL (8.4-10.2); Carbon Dioxide 27 mmol/L (22-29); Chloride 105 mmol/L (96-108); Estimated Glomerular Filt Rate > 60; Glucose Random 119 mg/dL (60-115); Potassium 3.9 mmol/L (3.3-5.1); Sodium 142 mmol/L (135-145); Total Protein 6.1 g/dL (6.5-8.0)
[2021-06-20 13:12] LABS: CDiff Gene PCR NEGATIVE (Negative)
[2021-06-27 14:12] LABS: Lactoferrin, Fecal, Quant. 78.3 mcg/mL
== END 2021-06-20 09:42 | disposition home or self-care (01) ==
LOC: HO.LAB 09:41
PROVIDERS: PCP Internal Medicine; Visit Provider Internal Medicine Gastroenterology
DX: K52.9 Noninfective gastroenteritis and colitis, unspecified (principal); K75.81 Nonalcoholic steatohepatitis (NASH)
CPT/HCPCS: 36415; 80053; 82728; 83631; 85025; 85652; 86140; 87493

== ENCOUNTER 2021-06-24 11:16 | Outpatient (REF) | payer OTHER, SELFPAY | END 2021-06-24 11:17 | disposition home or self-care (01) | LOC: HO.LAB 11:16 | PROVIDERS: PCP Internal Medicine; Visit Provider Internal Medicine Gastroenterology | DX: Z13.89 Encounter for screening for other disorder (principal) | CPT/HCPCS: 36415; 86481 ==

== ENCOUNTER 2021-06-24 19:37 | Emergency (ER) | payer OTHER, SELFPAY ==
--- NOTE | ~2021-06-24 | XR_ITS ---
EXAMINATION: XR FINGER, RIGHT CLINICAL INFORMATION: Laceration of the distal phalanx of third digit. COMPARISON: None TECHNIQUE: 3 views of the right middle digit. FINDINGS: Laceration of the middle digit near the DIP joint. No radiopaque foreign body. No osseous abnormality. Bone and joint are normal. XR/XR finger RT min 2V IMPRESSION: Laceration middle finger. No radiopaque foreign body. No osseous abnormality.
[2021-06-24 20:01] VITALS: BP 144/85; PULSE 108; RESP 14; TEMP 36.3; O2SAT 99; BMI 44.4
--- NOTE | 2021-06-24 21:29 | ED.ANIMALBIT ---
HPI - Animal Bite General Chief Complaint: Animal Bite Stated Complaint: Dog bite Time Seen by Provider: 06/24/21 20:42 Source: patient Mode of arrival: ambulatory Limitations: no limitations History of Present Illness HPI narrative: Patient comes to the emergency room complaining of a dog bite to the distal end of the 3rd finger on in the right hand. Patient states that she knows the dogs, there was denies, they are her neighbor's dogs. She was trying to break up a fight of to fighting pit bulls. Patient got bitten. Patient does not know when her last tetanus shot was. Patient did not sustain any other injuries Related Data Home Medications Medication Instructions Recorded Confirmed aspirin 81 mg tablet,delayed 81 mg PO DAILY 07/28/20 09/07/20 release (Adult Low Dose Aspirin) Previous Rx's Medication Instructions Recorded mesalamine 4 gram/60 mL enema 4 g (60 mL) ND BEDTIME #1680 ml 08/25/20 (sfRowasa) oxycodone-acetaminophen 5 mg-325 1 - 2 tab PO Q4-6H PRN #30 tab 09/14/20 mg tablet (Percocet) mesalamine 0.375 gram 1.5 g PO QAM #120 cap 03/15/21 capsule,extended release 24 hr amlodipine 10 mg tablet 10 mg PO DAILY #90 tab 03/26/21 albuterol sulfate 90 mcg/actuation 2 puff INHALATION Q4-6H PRN #8.5 g 06/22/21 aerosol inhaler (ProAir HFA) prednisone 20 mg tablet 40 mg PO DAILY #14 tab 06/23/21 amoxicillin 500 mg-potassium 1 tab PO BID #14 tab 06/24/21 clavulanate 125 mg tablet (Augmentin) ibuprofen 600 mg tablet 600 mg PO TID PRN #14 tab 06/24/21 lactobacillus combination no.4 3 3,000 mmu cells PO DAILY #14 cap 06/24/21 billion cell capsule (Probiotic) Allergies Allergy/AdvReac Type Severity Reaction Status Date / Time No Known Allergies Allergy Verified 12/14/20 10:13 Review of Systems Review of Systems: Constitutional : No Weight loss, No Fever, No Chills, No Night Sweats, No Fatigue, No Malaise ENT/Mouth : No Hearing loss, No Ear Pain, No Nasal Congestion, No Sinus Pain, No Hoarseness, No sore throat, No Rhinorrhea, No Swallowing Difficulty Eyes: No Eye Pain, No Swelling, No Redness, No Foreign Body, No Discharge, No Vision Changes Cardiovascular : No Chest Pain, No SOB, No Dyspnea on Exertion, No Orthopnea, No Edema, No Palpitations Respiratory : No Cough, No Sputum, No Wheezing, No Smoke Exposure, No Dyspnea Gastrointestinal : No Nausea, No Vomiting, No Diarrhea, No Constipation, No abdominal Pain, No Hematochezia, No Melena Genitourinary : no irregular bleeding, No Dysuria, No Urinary Frequency, No Hematuria, No Urinary Incontinence, No Urgency, No Flank Pain, No Urinary Flow Changes, No Hesitancy Musculoskeletal : Pain to the distal and of the floor visual right hand, dog bite Skin : See above Neuro : No Weakness, No Numbness, No Paresthesias, No Loss of Consciousness, No Dizziness, No Headache Psych : No Anxiety/Panic, No Depression, No SI/HI/AH/VH, No Social Issues, Heme/Lymph: No Bruising, No Bleeding,No Lymphadenopathy Endocrine : No Polyuria, No Polydipsia, No Temperature Intolerance PMFSH Past Medical History Medical History Abdominal hernia Abdominal pain Asthma Colitis History of anxiety HTN (hypertension) Impaired fasting blood sugar Morbid obesity PONV (postoperative nausea and vomiting) Sleep apnea Surgical History History of hernia repair (~2020) History of hernia surgery History of hysterectomy Hx of colonoscopy Hx of tonsillectomy Family History Family History Mother Vascular dementia Colon cancer Father No problems noted. Social History Social History Household Members: Children Are you a primary health care administrator to a significant other at home: No Do you presently have visiting nurse or other home services: No Alcohol intake: current Alcohol intake frequency: holidays/special occasions only Patient Tobacco Use Status: Former Tobacco user Tobacco use type: Cigarette Advance Directives: No Current occupational status: unemployed Physical Exam ED Vital Signs: Vital Signs - 24 hr 06/24/21 20:01 Temperature 97.4 F Pulse Rate 108 H Respiratory Rate 14 Blood Pressure 144/85 H Pulse Oximetry 99 BMI result Body Mass Index 44.4 Const Other: Appearance: Alert. Oriented X3. No acute distress. Eyes: Pupils equal, round and reactive to light. ENT: Pharynx normal. Neck: Normal inspection. Neck supple. No lymph nodes noted. No crepitus CVS: Normal heart rate and rhythm. Pulses normal. Normal S1 and S2 Respiratory: No respiratory distress. Breath sounds normal. No Wheezing. No rales Abdomen: Soft and nontender. No rigidity. No distention. Skin: Skin warm and dry. Normal skin color. Normal skin turgor. See below Extremities: No lower extremity edema. No Lacerations. No Rash, right hand distal phalanx, unable to flex DIP, but able to extend, suspecting flexor tendon, rupture, sensation decreased. Patient is able to flex and extend the PIP, able to abduct and adduct all fingers Neuro: Oriented X 3. No motor deficit. No sensory deficit. Moving all extremities. No slurred speech. CN 2 through 12 grossly intact Psych: calm, cooperative, normal affect Course Course Course Narrative: I discussed with the patient that we need to irrigate very well this injury. Patient will receive Tdap and Augmentin. Patient requested lidocaine for the irrigation. The dog bite/laceration is extensive, nearly circumferential, we will apply 1 or 2 stitches to hold the skin together but allowing enough space for drainage The wound was extensively irrigated I discussed the patient with orthopedics, SIL Nicholson. Patient is to be seen by surgery on June [address] hand surgeon Dr[address] Sage. Recommendations: Antibiotics and splint finger in extension Procedures Laceration Laceration 1: Site: hand Side (If applicable): right Size (cm): 3 Description: irregular and contaminated Depth: simple, single layer Local Anesthetic: lidocaine 2% Amount of anesthesia used (mL): 5 Pre-repair: wound explored and irrigated extensively Skin layer closed with: nylon Size (cm): 3-0 Number of sutures: 3 Technique: simple, interrupted Discharge Plan Discharge Clinical Impression: Dog bite, Rupture of flexor tendon of finger Patient Disposition: Home, Self-Care Instructions: Animal Bite (ED) Additional Instructions: If you see any signs of infection such as redness, pus drainage, fever or chills, please return immediately to the emergency room. Please follow-up with your primary care physician tomorrow. If you have any worsening or new symptoms, please return to the emergency room or call 911 Prescriptions: New amoxicillin-pot clavulanate [Augmentin] 500-125 mg tablet 1 tab PO BID Qty: 14 0RF ibuprofen 600 mg tablet 600 mg PO TID PRN (Reason: pain) Qty: 14 0RF Probiotic 3 billion cell capsule 3,000 mmu cells PO DAILY Qty: 14 0RF Rx Instructions: administer with a meal No Action mesalamine 0.375 gram capsule,extended release 24hr 1.5 g PO QAM Qty: 120 3RF amlodipine 10 mg tablet 10 mg PO DAILY Qty: 90 3RF albuterol sulfate [ProAir HFA] 90 mcg/actuation HFA aerosol inhaler 2 puff INHALATION Q4-6H PRN (Reason: Wheezing) Qty: 8.5 8RF prednisone 20 mg tablet 40 mg PO DAILY Qty: 14 0RF mesalamine [sfRowasa] 4 gram/60 mL enema 4 g ND BEDTIME Qty: 1680 1RF Label Comments: Patient not taking now oxycodone-acetaminophen [Percocet] 5-325 mg tablet 1 - 2 tab PO Q4-6H PRN (Reason: pain) Qty: 30 0RF aspirin [Adult Low Dose Aspirin] 81 mg tablet,delayed release (DR/EC) 81 mg PO DAILY 0RF Referrals: Conchita Sage MD [Physician] - 06/28/21 9:00 am (Flexor tendon rupture)
[2021-06-24] MEDS: Diphth,Pertus(ACell),Tet Adult 0.5 ML SYRINGE IM (21:45)
[2021-06-24] MEDS: Lidocaine HCl 2 % MPF 5 ML VIAL 10 ML INFILTRATI (21:45)
[2021-06-24] MEDS: Amoxicillin/Potassium Clav 875 MG TABLET PO (21:45)
--- NOTE | 2021-06-24 22:50 | PC.NURSE ---
PT LAC TO RIGHT FINGER CLEANED AND SUTURED BY DR ENGLE.
== END 2021-06-24 23:40 | disposition home or self-care (01) ==
PROVIDERS: Emergency Provider Emergency Medicine; PCP Internal Medicine
DX: S61.252A Open bite of right middle finger without damage to nail, initial encounter (principal); S60.412A Abrasion of right middle finger, initial encounter; W54.0XXA Bitten by dog, initial encounter; Y93.9 Activity, unspecified; Y92.9 Unspecified place or not applicable; Y99.9 Unspecified external cause status; Z87.891 Personal history of nicotine dependence; Z79.899 Other long term (current) drug therapy
CPT/HCPCS: 12002; 73140; 90471; 90715; 99284

== ENCOUNTER → 2021-06-28 10:04 | Outpatient (BNVA) | payer OTHER, SELFPAY | PROVIDERS: PCP Internal Medicine; Visit Provider Orthopaedic Surgery | DX: S61.252A Open bite of right middle finger without damage to nail, initial encounter (principal); W54.0XXA Bitten by dog, initial encounter; M20.011 Mallet finger of right finger(s) | CPT/HCPCS: 99212 ==

== ENCOUNTER 2021-07-01 14:01 | Outpatient (REF) | payer OTHER, SELFPAY ==
[2021-07-05 16:12] LABS: TS Negative Control Passed; TS Panel A 0; TS Panel B 0; TS Positive Control Passed; TSpotTB Negative (Negative)
== END 2021-07-01 14:02 | disposition home or self-care (01) ==
LOC: HO.LAB 14:01
PROVIDERS: PCP Internal Medicine; Visit Provider Internal Medicine Gastroenterology
DX: Z11.1 Encounter for screening for respiratory tuberculosis (principal); K52.9 Noninfective gastroenteritis and colitis, unspecified
CPT/HCPCS: 36415; 86481

== ENCOUNTER 2021-07-05 09:56 | Outpatient (REF) | payer OTHER, SELFPAY | END 2021-07-05 09:57 | disposition home or self-care (01) | LOC: HO.MDS 09:56 | PROVIDERS: Visit Provider Internal Medicine Gastroenterology | DX: D50.9 Iron deficiency anemia, unspecified (principal) | CPT/HCPCS: 96365; J2916 ==

== ENCOUNTER → 2021-07-08 11:26 | Outpatient (BNVA) | payer OTHER, SELFPAY | PROVIDERS: PCP Internal Medicine; Visit Provider Physician Assistant | DX: S61.252D Open bite of right middle finger without damage to nail, subsequent encounter (principal); W54.0XXD Bitten by dog, subsequent encounter; M20.011 Mallet finger of right finger(s) | CPT/HCPCS: 99212 ==

== ENCOUNTER 2021-07-12 09:23 | Outpatient (REF) | payer OTHER, SELFPAY | END 2021-07-12 09:24 | disposition home or self-care (01) | LOC: HO.MDS 09:23 | PROVIDERS: PCP Internal Medicine; Visit Provider Internal Medicine Gastroenterology | DX: D50.9 Iron deficiency anemia, unspecified (principal) | CPT/HCPCS: 96365; J2916 ==

== ENCOUNTER 2021-07-19 09:24 | Outpatient (REF) | payer OTHER, SELFPAY | END 2021-07-19 09:25 | disposition home or self-care (01) | LOC: HO.MDS 09:24 | PROVIDERS: Visit Provider Internal Medicine Gastroenterology | DX: D50.9 Iron deficiency anemia, unspecified (principal) | CPT/HCPCS: 96365; J2916 ==

== ENCOUNTER 2021-07-27 11:49 | Outpatient (REF) | payer OTHER, SELFPAY | END 2021-07-27 11:50 | disposition home or self-care (01) | LOC: HO.MDS 11:49 | PROVIDERS: Visit Provider Internal Medicine Gastroenterology | DX: K51.90 Ulcerative colitis, unspecified, without complications (principal) | CPT/HCPCS: 96365; J3380 ==

== ENCOUNTER 2021-08-10 10:18 | Outpatient (REF) | payer OTHER, SELFPAY | END 2021-08-10 10:19 | disposition home or self-care (01) | LOC: HO.MDS 10:18 | PROVIDERS: Visit Provider Internal Medicine Gastroenterology | DX: K51.90 Ulcerative colitis, unspecified, without complications (principal) | CPT/HCPCS: 96365; J3380 ==

== ENCOUNTER → 2021-08-23 09:37 | Outpatient (BNVA) | payer OTHER, SELFPAY | PROVIDERS: PCP Internal Medicine; Visit Provider Orthopaedic Surgery | DX: S61.252A Open bite of right middle finger without damage to nail, initial encounter (principal); W54.0XXA Bitten by dog, initial encounter; M20.011 Mallet finger of right finger(s); M25.641 Stiffness of right hand, not elsewhere classified | CPT/HCPCS: 99212 ==

== ENCOUNTER 2021-09-09 10:19 | Outpatient (REF) | payer OTHER, SELFPAY | END 2021-09-09 10:20 | disposition home or self-care (01) | LOC: HO.MDS 10:19 | PROVIDERS: Visit Provider Internal Medicine Gastroenterology | DX: K51.90 Ulcerative colitis, unspecified, without complications (principal) | CPT/HCPCS: 96365; J3380 ==

== ENCOUNTER → 2021-09-20 11:25 | Outpatient (BNVA) | payer OTHER, SELFPAY | PROVIDERS: PCP Internal Medicine; Visit Provider Orthopaedic Surgery | DX: S61.252A Open bite of right middle finger without damage to nail, initial encounter (principal); M20.011 Mallet finger of right finger(s); M25.641 Stiffness of right hand, not elsewhere classified | CPT/HCPCS: 99212 ==

== ENCOUNTER 2021-09-29 13:00 | Outpatient (RCR) | payer OTHER, SELFPAY ==
--- NOTE | 2021-09-15 13:40 | MHC.OT.OP ---
[address] [phone] F: [phone] Occupational Therapy Progress Note Diagnosis: Right D3 Mallet Injury Date of Evaluation: 09/01/21 Treatments to Date: 5 Subjective: I've really been working on it Pain Score: 2 Pain Location: right long finger Objective Measures: R D3 PIP 0/90 DIP 22/46 Gross grasp R 35 L 45 Status: Progressing Assessment: Laura is about 12 weeks s/p right long finger mallet injury. She has good follow through w/ HEP for ROM and scar management, progressing w/ range and overall good functional use. Continues to wear nighttime DIP extension orthosis, but still w/ extension lag w/ some passive correction available. Less than full digit flexion, able to actively move tip to palm. 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
--- NOTE | 2021-09-30 10:40 | MHC.OT.DC ---
[address] [phone] F: [phone] Occupational Therapy Discharge Note Provider: Dr Sage Diagnosis: Right D3 Mallet Injury Date of Evaluation: 09/01/21 Date of Discharge: 09/29/21 Treatments to Date: 9 Discharge Status: Achieved Goals Improved Function Independent with HEP Discharge Summary: Laura has been progressing very well w/ strength and range. She is able to easily come tip-palm w/ long finger and has good strength and use w/ daily activities. She does continue to have slight extension lag of DIP, but not disruptive to daily use. She plans to return to work this week, just awaiting schedule. She has been very motivated and has several tools for strengthening at home. Electronically Signed By: Adriana Will OTR/[place] CHT Please Sign and return to therapist, thank you for your referral.
== END 2021-09-30 10:43 | disposition home or self-care (01) ==
LOC: HO.OT 13:00
PROVIDERS: PCP Internal Medicine; Visit Provider Orthopaedic Surgery
DX: M25.641 Stiffness of right hand, not elsewhere classified (principal); M20.011 Mallet finger of right finger(s)
CPT/HCPCS: 97035; 97110; 97140; 97165

== ENCOUNTER 2021-10-06 13:20 | Outpatient (REF) | payer OTHER, SELFPAY ==
--- NOTE | ~2021-10-06 | MM_ITS ---
EXAMINATION: MM DIAGNOSTIC DIGITAL BREAST TOMOSYNTHESIS, BILATERAL US DIAGNOSTIC ULTRASOUND BREAST, BILATERAL CLINICAL INFORMATION: Patient notes bilateral fullness upper outer anterior chest beyond breast. Due for yearly exam. No known family history breast cancer. Prior mammography 2014. The lifetime risk of breast cancer based on the Tyrer-Cuzick Model is 7%. COMPARISON: Mammography: 01/11/2015 04/12/2011 TECHNIQUE: Digital breast tomosynthesis is performed in both the craniocaudal and mediolateral oblique views along with computer-aided detection (CAD). Synthesized 2D images are generated from the tomosynthesis. Additional bilateral MLO views are provided along with additional left cleavage view including both breasts. Ultrasound upper outer left breast/chest soft tissues and upper outer right breast/chest soft tissues is performed using grayscale imaging and color Doppler without and with harmonics. Patient is able to point to the areas of palpable concern at time of imaging. FINDINGS: The breasts are almost entirely fatty (ACR BI-RADS breast composition Category a). Background stromal markings appearing normal. There is no interval mass or architectural abnormality or abnormal calcifications. There are some vascular calcifications present. The axilla are unremarkable. The skin contours are smooth. Palpable areas of the on the hebep-hv-molo on the left and at margin of field of view right MLO projection. No mammographic correlate. Ultrasound left breast/anterior chest targeted to the area of palpable concern shows no cystic or solid mass or architectural abnormality. No skin thickening or edema tracking in soft tissue planes. Ultrasound right breast/anterior chest targeted to the area of palpable concern demonstrates a subcutaneous spindle-shaped circumscribed soft tissue mass, isoechoic to slightly hyperechoic with overall dimensions 4.7 x 1.7 x 4.2 cm. The mass is 25 cm from the nipple and approximately 3.9 cm inferior to the right clavicle. Results are discussed with the patient at time of visit. Navigator to call PCP office with results. MM/MM tomosynthesis diagnostic BI IMPRESSION: Right: -No mammographic evidence of malignancy. -Ultrasound shows circumscribed soft tissue mass subcutaneous space upper anterior chest 4.7 x 1.7 x 4.2 cm, 4 cm inferior to the clavicle. Although nonspecific, the lesion is statistically likely a lipoma and can be confirmed with CT or MR. Left: -No mammographic evidence of malignancy. -No ultrasound correlate for palpable concern. ASSESSMENT: BI-RADS 3: Probably Benign RECOMMENDATION: 1. Patient should be managed based on the clinical impression. If clinically indicated, the palpable areas upper anterior chest superior to the breast may be further characterized with CT or MR, to confirm lipoma on right, and further evaluate lack of imaging correlate on left. 2. Otherwise, routine annual screening mammography. This patient's information was entered into a reminder system with a target due date for their next mammogram.
== END 2021-10-06 13:21 | disposition home or self-care (01) ==
LOC: HO.MAMMO 13:20
PROVIDERS: PCP Internal Medicine; Visit Provider Internal Medicine
DX: N63.10 Unspecified lump in the right breast, unspecified quadrant (principal); N63.20 Unspecified lump in the left breast, unspecified quadrant
CPT/HCPCS: 76642; 77062; 77066

== ENCOUNTER 2021-10-26 10:10 | Outpatient (REF) | payer OTHER, SELFPAY ==
--- NOTE | ~2021-10-26 | CT_ITS ---
EXAMINATION: CT CHEST WITHOUT CONTRAST CLINICAL INFORMATION: Benign lipomatous neoplasm of skin and subcutaneous tissue of the trunk. COMPARISON: None TECHNIQUE: Multidetector volumetric CT imaging of the chest was done. Axial MIP volume rendering provided. Sagittal and coronal reformatted images were obtained. This CT examination was performed using dose optimization techniques as appropriate, variously including the following: *Automated exposure control *Adjustment of mA and/or kV according to patient size (this includes techniques or standardized protocols for targeted exams where dose is matched to indication/reason for exam; i.e. extremities or head) *Use of iterative reconstruction technique DLP: 329 mGy-cm FINDINGS: SECURITY EXPERT: Well-expanded lungs. LUNGS: The lungs are well-expanded and clear of acute pneumonic consolidation. There is plate-like atelectasis in the right middle lobe. There is a 2 mm calcified nodule in the right CP angle axial image 555/7, 3 mm subpleural-based nodule right lower lobe posterior segment image 469/7. MEDIASTINUM: The mediastinum is normal. PLEURA: There is no pleural effusion. No pleural mass or thickening. AXILLA: No lymphadenopathy. UPPER ABDOMEN: Visualized liver, spleen, pancreas and bilateral adrenal glands are unremarkable. The gallbladder is contracted without radiopaque calculi. OSSEOUS STRUCTURES: There is moderate ventral bridging osteophytes of the mid and lower dorsal spine. No aggressive lytic or sclerotic process is seen. CT/CT chest wo con IMPRESSION: 2 mm calcified nodule right CP angle and a noncalcified 3 mm pleural-based nodule in the right lower lobe. Fleischner guidelines were followed.
== END 2021-10-26 10:11 | disposition home or self-care (01) ==
LOC: HO.CT 10:10
PROVIDERS: PCP Internal Medicine; Visit Provider Internal Medicine
DX: D17.1 Benign lipomatous neoplasm of skin and subcutaneous tissue of trunk (principal)
CPT/HCPCS: 71250

== ENCOUNTER 2021-11-04 10:23 | Outpatient (REF) | payer OTHER, SELFPAY | END 2021-11-04 10:24 | disposition home or self-care (01) | LOC: HO.MDS 10:23 | PROVIDERS: Visit Provider Internal Medicine Gastroenterology | DX: K51.90 Ulcerative colitis, unspecified, without complications (principal) | CPT/HCPCS: 96365; J3380 ==

== ENCOUNTER → 2021-11-18 14:47 | Outpatient (BNVA) | payer OTHER, SELFPAY | PROVIDERS: PCP Internal Medicine; Visit Provider Hospitalist | DX: R91.8 Other nonspecific abnormal finding of lung field (principal); J45.20 Mild intermittent asthma, uncomplicated | CPT/HCPCS: 99202 ==

== ENCOUNTER 2021-11-21 14:35 | Outpatient (REF) | payer OTHER, SELFPAY ==
--- NOTE | ~2021-11-21 | XR_ITS ---
EXAMINATION: XR HAND, RIGHT CLINICAL INFORMATION: Right hand numbness COMPARISON: 06/24/2021 TECHNIQUE: PA, lateral, and oblique views of the right hand. FINDINGS: No acute fracture or dislocation. Slight flexion deformity of the 3rd DIP joint may indicate a chronic extensor tendon injury. No periarticular osteopenia, erosions, or suspicious soft tissue calcifications. XR/XR hand RT 2V IMPRESSION: No acute osseous abnormality. Probable chronic extensor tendon injury of the distal 3rd finger.
[2021-11-21 16:16] LABS: Erythrocyte Sedimentation Rate 29 MM/HR (0-20)
== END 2021-11-21 14:36 | disposition home or self-care (01) ==
LOC: HO.XRAY 14:35
PROVIDERS: PCP Internal Medicine; Visit Provider Internal Medicine
DX: M79.643 Pain in unspecified hand (principal); T50.Z95A Adverse effect of other vaccines and biological substances, initial encounter
CPT/HCPCS: 36415; 73120; 85652

== ENCOUNTER 2021-12-30 10:15 | Outpatient (REF) | payer OTHER, SELFPAY | END 2021-12-30 10:16 | disposition home or self-care (01) | LOC: HO.MDS 10:15 | PROVIDERS: Visit Provider Internal Medicine Gastroenterology | DX: K51.90 Ulcerative colitis, unspecified, without complications (principal) | CPT/HCPCS: 96365; J3380 ==

== ENCOUNTER 2022-01-28 13:40 | Outpatient (REF) | payer OTHER, SELFPAY | END 2022-01-28 13:41 | disposition home or self-care (01) | LOC: HO.LNP 13:40 | PROVIDERS: Visit Provider Physician Assistant | DX: L03.012 Cellulitis of left finger (principal) | CPT/HCPCS: 87070; 87077; 87186; 87205 ==

== ENCOUNTER 2022-02-24 10:21 | Outpatient (REF) | payer OTHER, SELFPAY | END 2022-02-24 10:22 | disposition home or self-care (01) | LOC: HO.MDS 10:21 | PROVIDERS: Visit Provider Internal Medicine Gastroenterology | DX: K51.90 Ulcerative colitis, unspecified, without complications (principal) | CPT/HCPCS: 96365; J3380 ==

== ENCOUNTER 2022-03-16 11:46 | Outpatient (REF) | payer OTHER, SELFPAY ==
[2022-03-16 12:00] LABS: MANUAL DIFF FLAG NO
[2022-03-16 12:39] LABS: Basophils Absolute Auto 0.1 X10*3/uL (0.0-0.2); Basophils Percent Auto 0.8 % (0-2); Eosinophils Absolute Auto 0.5 X10*3/uL (0.0-0.4); Eosinophils Percent Auto 6.3 % (0-4); Hematocrit 38.7 % (37.0-47.0); Hemoglobin 11.6 g/dl (12.0-16.0); Imm Gran Abs Auto 0.03 X10*3/uL (0.00-0.03); Imm Gran Pct Auto 0.4 % (0.0-0.4); Lymphocytes Absolute Auto 1.8 X10*3/uL (1.2-4.9); Mean Corpuscular Hemoglobin 24.4 pg (27.0-33.0); Mean Corpuscular Volume 81.3 fL (80.0-98.0); Mean Platelet Volume 9.8 fL (9.4-12.3); Monocytes Absolute Auto 0.5 X10*3/uL (0.1-1.2); Monocytes Percent Auto 6.3 % (2-11); Neutrophils Absolute Auto 5.1 x10*3/uL (2.0-8.3); Neutrophils Percent Auto 64.2 % (45-73); Platelet Count 240 X10*3/uL (160-400); Red Blood Count 4.76 X10*6/uL (4.20-5.50); Red Cell Distribution Width 14.8 % (11.0-16.0)
[2022-03-16 13:17] LABS: Alanine Aminotransferase 15 U/L (0-31); Alkaline Phosphatase 128 U/L (39-117); Anion Gap 12 (12-20); Aspartate Amino Transferase 16 U/L (5-31); Bilirubin Total 0.4 mg/dL (0.0-1.0); Blood Urea Nitrogen 8 mg/dL (9-16); C Reactive Protein 0.55 mg/dL (< or = 0.50); Calcium 9.4 mg/dL (8.4-10.2); Carbon Dioxide 30 mmol/L (22-29); Chloride 105 mmol/L (96-108); Estimated Glomerular Filt Rate > 60; Glucose Random 96 mg/dL (60-115); Iron 24 mcg/dL (30-160); Percent Iron Saturation 6 % (15-50); Potassium 3.8 mmol/L (3.3-5.1); Sodium 143 mmol/L (135-145); Total Iron Binding Capacity 391 mcg/dL (228-428); Total Protein 6.7 g/dL (6.5-8.0); Unsaturated Iron Binding 367 ug/dL
[2022-03-16 13:36] LABS: Ferritin 6 ng/mL (10-250)
== END 2022-03-16 11:47 | disposition home or self-care (01) ==
LOC: HO.LAB 11:46
PROVIDERS: PCP Internal Medicine; Visit Provider Internal Medicine Gastroenterology
DX: K52.9 Noninfective gastroenteritis and colitis, unspecified (principal); K75.81 Nonalcoholic steatohepatitis (NASH); K62.5 Hemorrhage of anus and rectum
CPT/HCPCS: 36415; 80053; 82728; 83540; 85025; 86140

== ENCOUNTER 2022-03-18 08:56 | Outpatient (REF) | payer OTHER, SELFPAY ==
[2022-03-25 16:33] LABS: Lactoferrin, Fecal, Quant. 196.73 mcg/mL (<7.25)
== END 2022-03-18 08:57 | disposition home or self-care (01) ==
LOC: HO.LNP 08:56
PROVIDERS: Visit Provider Internal Medicine Gastroenterology
DX: Z13.89 Encounter for screening for other disorder (principal)
CPT/HCPCS: 83631

== ENCOUNTER → 2022-04-07 09:39 | Outpatient (BNVA) | payer OTHER, SELFPAY | PROVIDERS: PCP Internal Medicine; Referring Provider Internal Medicine; Visit Provider Surgery | DX: K43.2 Incisional hernia without obstruction or gangrene (principal); E66.9 Obesity, unspecified; Z68.41 Body mass index [BMI] 40.0-44.9, adult | CPT/HCPCS: 99202 ==

== ENCOUNTER 2022-04-21 10:20 | Outpatient (REF) | payer OTHER, SELFPAY | END 2022-04-21 10:21 | disposition home or self-care (01) | LOC: HO.MDS 10:20 | PROVIDERS: Visit Provider Internal Medicine Gastroenterology | DX: K51.90 Ulcerative colitis, unspecified, without complications (principal) | CPT/HCPCS: 96365; J3380 ==

== ENCOUNTER 2022-04-26 14:22 | Outpatient (REF) | payer OTHER, SELFPAY ==
--- NOTE | ~2022-04-26 | CT_ITS ---
EXAMINATION: CT ABDOMEN WITHOUT CONTRAST CLINICAL INFORMATION: Incisional hernia COMPARISON: Previous CT of the abdomen and pelvis August 2021 TECHNIQUE: Contiguous axial thin section helical images of the abdomen were performed without contrast. The data set was reformatted in the coronal and sagittal planes and reviewed on an independent workstation. This CT examination was performed using dose optimization techniques as appropriate, variously including the following: *Automated exposure control *Adjustment of mA and/or kV according to patient size (this includes techniques or standardized protocols for targeted exams where dose is matched to indication/reason for exam; i.e. extremities or head) *Use of iterative reconstruction technique DLP: 741 mGy-cm FINDINGS: LUNG BASES: Normal LIVER, GALLBLADDER, BILIARY TREE: Normal PANCREAS: Normal SPLEEN: Normal ADRENAL GLANDS AND KIDNEYS: Normal BOWEL LOOPS: There is diverticulosis of the colon. Visualized bowel is otherwise normal. There is an upper midline ventral hernia containing fat. This measures 3 x 3.5 x 3 cm. There is a more inferior larger midline ventral or supraumbilical hernia containing fat. This measures 6 x 3 x 5.5 cm. LYMPH NODES: Normal. VASCULAR: Unremarkable. BONES: Degenerative changes of the spine. CT/CT abdomen wo IV con IMPRESSION: Upper midline ventral hernia containing fat and more inferior midline ventral or supraumbilical hernia fat. Mild diverticulosis of the colon. Fleischner guidelines were followed.
== END 2022-04-26 14:23 | disposition home or self-care (01) ==
LOC: HO.CT 14:22
PROVIDERS: Visit Provider Surgery
DX: K43.2 Incisional hernia without obstruction or gangrene (principal)
CPT/HCPCS: 74150

== ENCOUNTER 2022-06-05 10:42 | Outpatient (REF) | payer OTHER, SELFPAY ==
[2022-06-05 11:39] LABS: MANUAL DIFF FLAG NO
[2022-06-05 12:25] LABS: Basophils Absolute Auto 0.1 X10*3/uL (0.0-0.2); Basophils Percent Auto 0.7 % (0-2); Eosinophils Absolute Auto 0.5 X10*3/uL (0.0-0.4); Eosinophils Percent Auto 6.7 % (0-4); Hematocrit 40.2 % (37.0-47.0); Hemoglobin 12.6 g/dl (12.0-16.0); Imm Gran Abs Auto 0.02 X10*3/uL (0.00-0.03); Imm Gran Pct Auto 0.3 % (0.0-0.4); Lymphocytes Absolute Auto 1.5 X10*3/uL (1.2-4.9); Lymphocytes Percent Auto 20.8 % (20-40); Mean Corpuscular HGB Conc 31.3 g/dl (31.0-35.0); Mean Corpuscular Hemoglobin 26.5 pg (27.0-33.0); Mean Corpuscular Volume 84.5 fL (80.0-98.0); Mean Platelet Volume 9.7 fL (9.4-12.3); Monocytes Absolute Auto 0.5 X10*3/uL (0.1-1.2); Neutrophils Absolute Auto 4.5 x10*3/uL (2.0-8.3); Neutrophils Percent Auto 64.5 % (45-73); Platelet Count 218 X10*3/uL (160-400); Red Blood Count 4.76 X10*6/uL (4.20-5.50); Red Cell Distribution Width 14.8 % (11.0-16.0)
[2022-06-05 13:07] LABS: Alanine Aminotransferase 13 U/L (0-31); Albumin Level 3.8 g/dL (3.5-5.0); Alkaline Phosphatase 107 U/L (39-117); Anion Gap 12 (12-20); Aspartate Amino Transferase 17 U/L (5-31); Bilirubin Total 0.6 mg/dL (0.0-1.0); Blood Urea Nitrogen 7 mg/dL (9-16); C Reactive Protein 0.52 mg/dL (< or = 0.50); Carbon Dioxide 29 mmol/L (22-29); Chloride 104 mmol/L (96-108); Estimated Glomerular Filt Rate > 60; Glucose Random 92 mg/dL (60-115); Iron 60 mcg/dL (30-160); Percent Iron Saturation 18 % (15-50); Sodium 141 mmol/L (135-145); Total Iron Binding Capacity 333 mcg/dL (228-428); Total Protein 6.2 g/dL (6.5-8.0); Unsaturated Iron Binding 273 ug/dL
[2022-06-05 13:30] LABS: Ferritin 10 ng/mL (10-250); Folate 9.5 ng/mL (> or = 4.0); Vitamin B12 299 pg/mL (200-900)
[2022-06-08 01:29] LABS: Zinc 54 mcg/dL (60-130)
[2022-06-08 12:49] LABS: TS Negative Control Passed; TS Panel A 0; TS Panel B 4; TS Positive Control Passed; TSpotTB Negative (Negative)
== END 2022-06-05 10:43 | disposition home or self-care (01) ==
LOC: HO.LAB 10:42
PROVIDERS: PCP Internal Medicine; Visit Provider Internal Medicine Gastroenterology
DX: K52.9 Noninfective gastroenteritis and colitis, unspecified (principal); K62.5 Hemorrhage of anus and rectum; R10.9 Unspecified abdominal pain; K75.81 Nonalcoholic steatohepatitis (NASH); J45.20 Mild intermittent asthma, uncomplicated
CPT/HCPCS: 36415; 80053; 82607; 82728; 82746; 83540; 84630; 85025; 86140; 86481; 99212

== ENCOUNTER 2022-06-16 10:17 | Outpatient (REF) | payer OTHER, SELFPAY ==
[2022-06-24 02:49] LABS: Lactoferrin, Fecal, Quant. 21.68 mcg/mL (<7.25)
== END 2022-06-16 10:18 | disposition home or self-care (01) ==
LOC: HO.MDS 10:17
PROVIDERS: Visit Provider Internal Medicine Gastroenterology
DX: K51.90 Ulcerative colitis, unspecified, without complications (principal)
CPT/HCPCS: 83631; 96365; J3380

== ENCOUNTER 2022-06-30 16:24 | Emergency (ER) | payer OTHER, SELFPAY ==
--- NOTE | ~2022-06-30 | CT_ITS ---
EXAMINATION: CT ABDOMEN AND PELVIS WITH CONTRAST CLINICAL INFORMATION: Upper abdominal pain, history of inflammatory bowel disease. COMPARISON: CT abdomen 04/13/1404/26/2022. CT abdomen/pelvis 08/12/2020. TECHNIQUE: Multidetector volumetric images were obtained from the superior aspect of the liver through the pubic symphysis following administration 85 mL of Omnipaque 350 intravenous contrast. Sagittal and coronal reformatted images were obtained on the technologist's workstation. Oral contrast: No This CT examination was performed using dose optimization techniques as appropriate, variously including the following: *Automated exposure control *Adjustment of mA and/or kV according to patient size (this includes techniques or standardized protocols for targeted exams where dose is matched to indication/reason for exam; i.e. extremities or head) *Use of iterative reconstruction technique DLP: 1115 mGy-cm FINDINGS: LUNG BASES: A 3 mm pleural based nodule in the right lower lobe (4:150) is unchanged compared to 08/12/2020. A 4 mm solid nodule in the right lower lobe (4:89) is decreased in size from 6 mm on 04/26/2022 and new compared to 08/12/2020. Tiny calcified granuloma in the right lung base (4:200). No focal consolidation or pleural effusion. LIVER, GALLBLADDER, AND BILIARY TREE: The liver is normal in size, shape, and attenuation. No focal hepatic lesion or biliary ductal dilatation is present. The gallbladder is unremarkable with no evidence of radiopaque gallstones, gallbladder wall thickening, or obvious pericholecystic inflammatory changes. PANCREAS: Unremarkable. SPLEEN: Unremarkable. ADRENAL GLANDS: Unremarkable. KIDNEYS AND URETERS: Too small to characterize hypodensity in the anterior lower right kidney (3:41), statistically favored to represent a simple cyst and for which no imaging follow-up is recommended. BLADDER: Unremarkable. GASTROINTESTINAL TRACT: The stomach and the small bowel are nondilated. Normal appendix. Sigmoid diverticulosis with chronic wall thickening (3:74), possibly increased compared to 08/12/2020. There is increased inferior mesenteric artery lymphadenopathy, for instance measuring 0.9 cm short axis on image 68 series 3. There is also increase size of some rounded mesorectal lymph nodes, for instance on the right at the level of the upper rectum measuring 0.5 cm on image 73 series 3. No evidence of bowel obstruction. ABDOMINAL WALL: Redemonstration of periumbilical abdominal wall hernias containing fat, no significantly changed compared to 08/12/2020. LYMPH NODES: As above, increased size of several inferior mesenteric and mesorectal lymph nodes compared to 08/12/2020. Similar degree of mild mesenteric haziness in the root of the mesentery, for instance image 46 series 3. VASCULAR: Atherosclerotic disease. Abdominal aorta is normal in caliber. PELVIC VISCERA: Hysterectomy. OSSEOUS STRUCTURES: Redemonstration of prominent subchondral cystic changes in the right superior acetabulum. Degenerative changes of the spine. No acute or aggressive appearing osseous abnormalities. CT/CT abdomen pelvis w IV con IMPRESSION: New inferior mesenteric lymphadenopathy and increased size of several mesorectal lymph nodes compared to 08/12/2020. Questionable increased focal wall thickening of the high rectum/rectosigmoid junction. Constellation of findings are worrisome for an underlying malignancy. Recommend correlation with colonoscopy and colorectal oncology consultation. A 4 mm right lower lobe pulmonary nodule is decreased in size from 6 mm on 04/26/2022, however new compared to 08/12/[address] chest from 10/26/2021. An additional 3 mm pleural-based right lower lobe nodule is unchanged compared to 04/26/2022 and 08/12/2020. Given the possibility of a rectosigmoid lesion, further evaluation in the search for additional nodules with a diagnostic chest CT is recommended.
[2022-06-30 16:50] VITALS: BP 184/90; PULSE 99; RESP 18; TEMP 36.7; O2SAT 99; BMI 43.2
[2022-06-30 17:55] LABS: MANUAL DIFF FLAG NO
[2022-06-30 18:02] LABS: Basophils Percent Auto 0.5 % (0-2); Eosinophils Absolute Auto 0.4 X10*3/uL (0.0-0.4); Eosinophils Percent Auto 4.9 % (0-4); Hemoglobin 12.9 g/dl (12.0-16.0); Imm Gran Abs Auto 0.02 X10*3/uL (0.00-0.03); Imm Gran Pct Auto 0.2 % (0.0-0.4); Lymphocytes Percent Auto 22.9 % (20-40); Mean Corpuscular HGB Conc 31.5 g/dl (31.0-35.0); Mean Corpuscular Hemoglobin 26.7 pg (27.0-33.0); Mean Corpuscular Volume 84.9 fL (80.0-98.0); Mean Platelet Volume 9.8 fL (9.4-12.3); Monocytes Absolute Auto 0.5 X10*3/uL (0.1-1.2); Monocytes Percent Auto 5.8 % (2-11); Neutrophils Absolute Auto 5.6 x10*3/uL (2.0-8.3); Neutrophils Percent Auto 65.7 % (45-73); Platelet Count 234 X10*3/uL (160-400); Red Blood Count 4.83 X10*6/uL (4.20-5.50); Red Cell Distribution Width 14.2 % (11.0-16.0); White Blood Count 8.6 X10*3/uL (4.8-10.8)
[2022-06-30 18:09] LABS: Alanine Aminotransferase 17 U/L (0-31); Albumin Level 4.2 g/dL (3.5-5.0); Alkaline Phosphatase 133 U/L (39-117); Anion Gap 12 (12-20); Aspartate Amino Transferase 18 U/L (5-31); Bilirubin Total 0.4 mg/dL (0.0-1.0); Blood Urea Nitrogen 14 mg/dL (9-16); Calcium 9.5 mg/dL (8.4-10.2); Carbon Dioxide 31 mmol/L (22-29); Chloride 105 mmol/L (96-108); Creatinine Clr Calc Pharmacy 78.1; Estimated Glomerular Filt Rate 56; Glucose Random 104 mg/dL (60-115); Potassium 4.2 mmol/L (3.3-5.1); Sodium 144 mmol/L (135-145); Total Protein 6.7 g/dL (6.5-8.0)
--- NOTE | 2022-06-30 19:27 | MHC.EDTECH ---
pt blood drawn and sent to lab .
[2022-06-30 19:36] LABS: Lactic Acid 0.9 mmol/L (0.5-2.0)
[2022-06-30 20:23] VITALS: BP 173/100; PULSE 80; RESP 17; TEMP 36.8; O2SAT 100
--- NOTE | 2022-06-30 21:29 | ED_ITS ---
HPI - Abdominal Pain General Chief Complaint: Abdominal Pain Stated Complaint: Severe hernia pain Time Seen by Provider: 06/30/22 21:13 Source: patient Mode of arrival: ambulatory Limitations: no limitations History of Present Illness HPI narrative: 56-year-old female presents with abdominal pain. The abdominal pain started this afternoon. Pain is severe currently a 9/10. The pain is constant. The pain is in the periumbilical area radiating upward. There is no clear relieving or exacerbating features. Patient has nausea but no vomiting. She also has intermittent diarrhea and constipation with blood in stool. She has a history of hemorrhoids. She also has a history of IBD and is on Entyvio infusions by Gastroenterology patient denies any recent fevers or chills. No urinary complaints such as frequency, urgency or dysuria. Patient is not used to having the symptoms. She did have a CT scan in April identifying a couple of hernias in her abdomen which were reportedly ?not bad. ? Related Data Home Medications Medication Instructions Recorded Confirmed aspirin 81 mg tablet,delayed 81 mg PO DAILY 07/28/20 04/07/22 release (Adult Low Dose Aspirin) Previous Rx's Medication Instructions Recorded vedolizumab 300 mg intravenous 300 mg IV Q8W 6 months #1 ea 12/26/21 solution (Entyvio) albuterol sulfate 90 mcg/actuation 2 puff inhalation Q4-6H PRN 01/05/22 aerosol inhaler (ProAir HFA) Wheezing #8.5 grams tizanidine 4 mg tablet 4 mg PO Q8H PRN muscle spasticity 01/06/22 #60 tabs amlodipine 10 mg tablet 10 mg PO DAILY #90 tabs 03/14/22 ondansetron HCl 4 mg tablet 4 mg PO Q6H PRN nausea and 03/23/22 vomiting #30 tabs tramadol 50 mg tablet 50 mg PO Q8H PRN pain #20 tabs 03/23/22 ferrous gluconate 236 mg (27 mg 236 mg PO DAILY #30 tabs 06/05/22 iron) tablet zinc acetate 50 mg (zinc) capsule 50 mg PO DAILY #30 caps 06/08/22 (Galzin) amoxicillin 875 mg-potassium 1 tab PO Q8H 10 days #30 tabs 06/30/22 clavulanate 125 mg tablet tramadol 50 mg tablet 50 mg PO Q8H PRN pain #10 tabs 06/30/22 Allergies Allergy/AdvReac Type Severity Reaction Status Date / Time No Known Allergies Allergy Verified 06/05/22 10:46 [facility] Past Medical History Medical History Abdominal hernia Abdominal pain Asthma Colitis History of anxiety HTN (hypertension) Impaired fasting blood sugar Iron (Fe) deficiency anemia Morbid obesity PONV (postoperative nausea and vomiting) Pulmonary nodules Sleep apnea Surgical History History of hernia repair (~2020) History of hernia surgery History of hysterectomy Hx of colonoscopy Hx of tonsillectomy Family History Family History Mother Vascular dementia Colon cancer Father No problems noted. 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 Physical Exam ED Vital Signs: Vital Signs - 24 hr 06/30/22 16:50 06/30/22 20:23 Temperature 98.0 F 98.2 F Pulse Rate 99 80 Respiratory Rate 18 17 Blood Pressure 184/90 H 173/100 H Pulse Oximetry 99 100 Oxygen Delivery Method Room Air Room Air BMI result Body Mass Index 43.2 GEN: Well developed, no acute distress, alert, oriented HEENT: Normocephalic, atraumatic, normal external ears, nose appears normal, no oropharyngeal edema or exudates Eyes: Normal to appearance Neck: Supple, no lymphadenopathy Respiratory: Talks in complete sentences, no respiratory distress, clear to auscultation bilaterally Cardiovascular: Regular rate and rhythm, no murmurs rubs or gallops Abdomen: Soft, tenderness in the epigastric and right upper quadrant, nondistended, + guarding, no rebound, negative McBurney's point tenderness, negative Joyce sign Back: No CVA tenderness Extremities: No clubbing cyanosis or edema Neurologic: No focal neurologic deficits, cranial nerves 2-12 intact, strength is 5/5 bilaterally Skin: No rash Course Course Course Narrative: 56-year-old female with a history of incisional hernias, IBD presents with abdominal pain, nausea, no vomiting, intermittent diarrhea and constipation with blood in stool. Her examination revealed epigastric abdominal tenderness, guarding no rebound. Patient believes this might be related to hernia however I am not suspicious at this time that this is hernia related given lack of obstructive symptoms. I will be recommending a CT scan the abdomen and pelvis as well as symptomatic management. Reevaluation(s) Reevaluation #1: Patient's pain is better under control at this point. I discussed results of the CT scan the patient. We discussed the pulmonary nodule in the finding that was reportedly concerning for possible malignancy. However, this appears to be more acute nature. Recommending follow-up with her channel turner within the next week or 2. Time: 23:22 Medical Decision Making Medical Decision Making [facility] Narrative: 56-year-old female with history of IBD on Entyvio infusions presents with abdominal pain. The abdominal pain started today. As severe. She has guarding but no rebound. There is negative Joyce sign. Doubt acute cholecystitis. Patient has a history of 2 incisional hernias. She has no obstructive symptoms at this point, I doubt incarceration or strangulation this could certainly be an IBD flare up. Other possible diagnoses include acute appendicitis, cholecystitis, mesenteric adenitis, mesenteric ischemia, doubt AAA or dissection. Will discuss obtaining a CT scan the abdomen pelvis the patient did recent 1 in April. I did review these results. I will also offer the patient analgesia and antiemetics. Differential Diagnosis Differential Diagnoses: The differential diagnosis associated with the presentation includes (IBD, IBS, appendicitis, cholecystitis, GERD, reflux, dys motility, bacterial overgrowth, gastroenteritis, colitis, mesenteric adenitis, infectious etiology) Admission/Observation Consideration of admission/observation: Escalation of care including admission/observation considered Lab Data [facility] Lab Attestation statement: I reviewed the patient's lab results. 06/30/22 17:49 06/30/22 17:49 Labs: Lab Results 06/30/22 06/30/22 06/30/22 Range/Units 08:28 17:49 17:49 WBC 8.6 (4.8-10.8) X10*3/uL RBC 4.83 (4.20-5.50) X10*6/uL Hgb 12.9 (12.0-16.0) g/dl Hct 41.0 (37.0-47.0) % MCV 84.9 (80.0-98.0) fL MCH 26.7 L (27.0-33.0) pg MCHC 31.5 (31.0-35.0) g/dl RDW 14.2 (11.0-16.0) % Plt Count 234 (160-400) X10*3/uL MPV 9.8 (9.4-12.3) fL Immature Gran % (Auto) 0.2 (0.0-0.4) % Neut % (Auto) 65.7 (45-73) % Lymph % (Auto) 22.9 (20-40) % Dale % (Auto) 5.8 (2-11) % Eos % (Auto) 4.9 H (0-4) % Baso % (Auto) 0.5 (0-2) % Lymph # (Auto) 2.0 (1.2-4.9) X10*3/uL Dale # (Auto) 0.5 (0.1-1.2) X10*3/uL Eos # (Auto) 0.4 (0.0-0.4) X10*3/uL Baso # (Auto) 0.0 (0.0-0.2) X10*3/uL Abs Immat Gran (auto) 0.02 (0.00-0.03) X10*3/uL Absolute Neuts (auto) 5.6 (2.0-8.3) x10*3/uL Absolute Nucleated RBC 0.000 (0.0-0.012) X10*3/uL Nucleated RBC % (auto) 0.0 (0.0-0.2) /100WBC Sodium 144 (135-145) mmol/L Potassium 4.2 (3.3-5.1) mmol/L Chloride 105 (96-108) mmol/L Carbon Dioxide 31 H (22-29) mmol/L Anion Gap 12 (12-20) BUN 14 (9-16) mg/dL Creatinine 1.02 (0.5-1.4) mg/dL Estim Creat Clear Calc 78.1 Estimated GFR 56 Random Glucose 104 (60-115) mg/dL Lactic Acid 0.9 (0.5-2.0) mmol/L Calcium 9.5 (8.4-10.2) mg/dL Total Bilirubin 0.4 (0.0-1.0) mg/dL AST 18 (5-31) U/L ALT 17 (0-31) U/L Alkaline Phosphatase 133 H (39-117) U/L Total Protein 6.7 (6.5-8.0) g/dL Albumin 4.2 (3.5-5.0) g/dL Lipase 19 (8-78) U/L Independent Interpretation I performed an independent interpretation of an: CT Scan Radiology Impression Discussion of test interpretation with radiology: I have reviewed the radiologist's reading. ( CT/CT abdomen pelvis w IV con IMPRESSION: New inferior mesenteric lymphadenopathy and increased size of several mesorectal lymph nodes compared to 08/12/2020. Questionable increased focal wall thickening of the high rectum/rectosigmoid junction. Constellation of findings are wor) External Record Review External record reviewed: Prior outpatient radiology ( CT/CT abdomen wo IV con IMPRESSION: Upper midline ventral hernia containing fat and more inferior midline ventral or supraumbilical hernia fat. Mild diverticulosis of the colon. Fleischner guidelines were followed. Dictated By:Francoise Nguyen MDSigned By:<Electronically signed ) Prescription Management I considered prescription management with: Pain Medication Chronic Conditions Patient?s care impacted by: Other (IBD) Medications Administered Discontinued Medications Generic Name Dose Route Start Last Admin Trade Name Freq PRN Reason Stop Dose Admin Sodium Chloride 1,000 mls @ 999 mls/hr 06/30/22 21:45 06/30/22 21:47 Ns IV 06/30/22 22:45 999 mls/hr .Q1H1M ROBLES Administration Iohexol 100 ml 06/30/22 22:01 06/30/22 22:01 Iohexol 350 Mg/Ml 100 Ml Infus..Btl IV 06/30/22 22:02 85 ml ONCE ONE Administration Ketorolac Tromethamine 15 mg 06/30/22 21:37 06/30/22 21:50 Ketorolac Tromethamine 15 Mg/Ml Vial IVPUSH 04/21/23 21:38 15 mg ONCE ONE Administration Ondansetron HCl 4 mg 06/30/22 21:37 06/30/22 23:03 Ondansetron Hcl 4 Mg/2 Ml Vial IVPUSH 06/30/22 21:38 Not Given ONCE ONE Discharge Plan Discharge Clinical Impression: Abdominal pain, Colitis, Pulmonary nodule Patient Disposition: Home, Self-Care Instructions: Abdominal Pain (ED), Pulmonary Nodules (ED), Colitis (ED) Prescriptions: New amoxicillin-pot clavulanate 875-125 mg tablet 1 tab PO Q8H 10 Days Qty: 30 0RF tramadol 50 mg tablet 50 mg PO Q8H PRN (Reason: pain) Qty: 10 0RF No Action Entyvio 300 mg recon soln 300 mg IV Q8W 180 Days Qty: 1 4RF Rx Instructions: give 300 mg IV q 8 weeks albuterol sulfate [ProAir HFA] 90 mcg/actuation HFA aerosol inhaler 2 puff INHALATION Q4-6H PRN (Reason: Wheezing) Qty: 8.5 8RF tizanidine 4 mg tablet 4 mg PO Q8H PRN (Reason: muscle spasticity) Qty: 60 3RF amlodipine 10 mg tablet 10 mg PO DAILY Qty: 90 3RF Galzin 50 mg (zinc) capsule 50 mg PO DAILY Qty: 30 2RF tramadol 50 mg tablet 50 mg PO Q8H PRN (Reason: pain) Qty: 20 0RF ondansetron HCl 4 mg tablet 4 mg PO Q6H PRN (Reason: nausea and vomiting) Qty: 30 2RF aspirin [Adult Low Dose Aspirin] 81 mg tablet,delayed release (DR/EC) 81 mg PO DAILY ferrous gluconate 236 mg (27 mg iron) tablet 236 mg PO DAILY Qty: 30 3RF Referrals: Sheela Brown MD [Physician] - 5 days
[2022-06-30] MEDS: 0.9 % Sodium Chloride 1,000 ML 999 ML IV (21:47)
[2022-06-30] MEDS: Ketorolac Tromethamine 15 MG/ML VIAL IVPUSH (21:50)
--- NOTE | 2022-06-30 21:50 | PC.NURSE ---
late entry- pt medicated according to ernesto. pt refused zofran. states not feeling nauseous. this rn documented according to mar
[2022-06-30] MEDS: iohexoL 350 MG/ML 100 ML INFUS..BTL IV (22:01)
[2022-06-30 22:18] LABS: Lipase 19 U/L (8-78)
[2022-06-30] MEDS: Amoxicillin/Potassium Clav 875 MG TABLET PO (23:32)
[2022-06-30 23:33] VITALS: BP 176/99; PULSE 83; RESP 17; TEMP 36.9; O2SAT 96
--- NOTE | 2022-06-30 23:39 | PC.NURSE ---
dr aguilera made aware of bp 176/99. no new orders. per md pt okay for discharge
--- NOTE | 2022-06-30 23:45 | PC.NURSE ---
pt medicated according to mar. iv removed at time of discharge. skin pwd. dr aguilera made aware of bp- see previous note. pt provided with discharge packet and work note. pt verbalized understanding of discharge plan
== END 2022-06-30 23:47 | disposition home or self-care (01) ==
PROVIDERS: Physician Assistant; Emergency Provider Emergency Medicine; PCP Internal Medicine
DX: R10.2 Pelvic and perineal pain (principal); K52.9 Noninfective gastroenteritis and colitis, unspecified; R91.1 Solitary pulmonary nodule; Z79.899 Other long term (current) drug therapy
CPT/HCPCS: 36415; 74177; 80053; 83605; 83690; 85025; 96361; 96374; 96375; 99284; J1885; Q9967

== ENCOUNTER 2022-07-02 10:38 | Emergency (ER) | payer OTHER, SELFPAY ==
[2022-07-02 10:43] VITALS: BP 161/92; PULSE 79; RESP 19; TEMP 36.1; O2SAT 98; BMI 43.2
[2022-07-02 11:02] VITALS: BP 154/76; PULSE 73; RESP 20; TEMP 36.5; O2SAT 99
--- NOTE | 2022-07-02 11:07 | PC.NURSE ---
Pt arrived ambulatory, complaints of abdominal/pelvic pain 09/18 shooting/radiating up and down. No reports of N/V/D, denies constipation. a/ox4. stable on RA. Able to tolerate some PO intake though minimal.
[2022-07-02 12:33] LABS: MANUAL DIFF FLAG NO
[2022-07-02 12:37] LABS: Basophils Percent Auto 0.3 % (0-2); Eosinophils Absolute Auto 0.3 X10*3/uL (0.0-0.4); Eosinophils Percent Auto 5.3 % (0-4); Hematocrit 41.9 % (37.0-47.0); Hemoglobin 13.4 g/dl (12.0-16.0); Imm Gran Abs Auto 0.01 X10*3/uL (0.00-0.03); Imm Gran Pct Auto 0.2 % (0.0-0.4); Lymphocytes Absolute Auto 1.3 X10*3/uL (1.2-4.9); Lymphocytes Percent Auto 20.9 % (20-40); Mean Corpuscular Hemoglobin 27.1 pg (27.0-33.0); Mean Corpuscular Volume 84.8 fL (80.0-98.0); Mean Platelet Volume 9.5 fL (9.4-12.3); Monocytes Absolute Auto 0.4 X10*3/uL (0.1-1.2); Monocytes Percent Auto 6.2 % (2-11); Neutrophils Absolute Auto 4.2 x10*3/uL (2.0-8.3); Neutrophils Percent Auto 67.1 % (45-73); Platelet Count 181 X10*3/uL (160-400); Red Blood Count 4.94 X10*6/uL (4.20-5.50); Red Cell Distribution Width 14.1 % (11.0-16.0); White Blood Count 6.3 X10*3/uL (4.8-10.8)
[2022-07-02 12:54] LABS: Alanine Aminotransferase 17 U/L (0-31); Albumin Level 3.9 g/dL (3.5-5.0); Alkaline Phosphatase 122 U/L (39-117); Anion Gap 14 (12-20); Aspartate Amino Transferase 17 U/L (5-31); Bilirubin Total 0.5 mg/dL (0.0-1.0); Blood Urea Nitrogen 9 mg/dL (9-16); Carbon Dioxide 29 mmol/L (22-29); Chloride 106 mmol/L (96-108); Creatinine Clr Calc Pharmacy 113.9; Estimated Glomerular Filt Rate > 60; Glucose Random 98 mg/dL (60-115); Magnesium 1.9 mg/dL (1.6-2.6); Potassium 3.7 mmol/L (3.3-5.1); Sodium 145 mmol/L (135-145); Total Protein 6.4 g/dL (6.5-8.0)
[2022-07-02] MEDS: ondansetron HCL 4 MG/2 ML VIAL IVPUSH (13:51)
[2022-07-02] MEDS: Ketorolac Tromethamine 15 MG/ML VIAL IVPUSH (13:51)
[2022-07-02 13:55] VITALS: BP 143/76; PULSE 60; O2SAT 99
[2022-07-02 14:07] LABS: Appearance Urine Clear; Color Urine Yellow; Glucose Urine UA Negative (Negative); Leukocyte Esterase Urine Negative (Negative); Nitrite Urine Negative (Negative); Specific Gravity - Urine 1.015 (1.005-1.025); Urine Blood Negative (Negative); Urine Ketones Trace mg/dL (Negative); Urine Protein Negative (Neg-Trace)
[2022-07-02 14:12] LABS: Bacteria Urine None Seen (None Seen); Hyaline Casts Urine 0-2 /LPF (0-2); WBC Urine 0-5 /HPF (0-5)
--- NOTE | 2022-07-02 14:54 | ED_ITS ---
HPI - Abdominal Pain General Chief Complaint: Abdominal Pain Stated Complaint: Lower abd pain/back pain Time Seen by Provider: 07/02/22 12:02 Source: patient Mode of arrival: ambulatory Limitations: no limitations History of Present Illness HPI narrative: 56-year-old female with a past medical history of ulcerative colitis, HTN, 2 known incisional hernias, asthma, chronic low back pain, and pulmonary nodules presents to the emergency department with complaints of lower abdominal and back pain with accompanying nausea. She reports she had similar symptoms on Sunday with upper abdominal discomfort in to be seen here in this emergency department. CT scan abdomen/pelvis was completed showing mesenteric lymphadenopathy, increased size of several mesorectal lymph nodes, questionable focal wall thickening of high rectum/rectosigmoid junction, sigmoid diverticulosis, and a decreased size of a right lower lobe pulmonary nodule. It was recommended the patient correlate findings with colonoscopy and Colorectal oncology consult and get further evaluation she for additional nodules with a diagnostic chest CT. Augmentin was prescribed for antibiotic coverage related to mesenteric lymphadenopathy and tramadol was ordered for discomfort. She reports the tramadol has not reduced her discomfort and her pain has migrated from the upper abdomen to the lower abdomen and low back. She denies any decline in her p.o. intake and reports that she has been urinating without issue. She denies any dysuria, foul odor to her urine, urinary hesitancy, frequency, or incontinence, irregular vaginal bleeding or vaginal discharge. Patient denies any changes in her bowel habits. She reports she has 4-5 bowel movements per day due to her ulcerative colitis not her bowel movements frequently contain blood. She denies any vomiting, paresthesias, weakness, changes in ROM, chest pain, shortness of breath, headache, or vision changes. Pertinent positives and negatives discussed in HPI. Related Data Home Medications Medication Instructions Recorded Confirmed aspirin 81 mg tablet,delayed 81 mg PO DAILY 07/28/20 04/07/22 release (Adult Low Dose Aspirin) Previous Rx's Medication Instructions Recorded vedolizumab 300 mg intravenous 300 mg IV Q8W 6 months #1 ea 12/26/21 solution (Entyvio) albuterol sulfate 90 mcg/actuation 2 puff inhalation Q4-6H PRN 01/05/22 aerosol inhaler (ProAir HFA) Wheezing #8.5 grams tizanidine 4 mg tablet 4 mg PO Q8H PRN muscle spasticity 01/06/22 #60 tabs amlodipine 10 mg tablet 10 mg PO DAILY #90 tabs 03/14/22 ondansetron HCl 4 mg tablet 4 mg PO Q6H PRN nausea and 03/23/22 vomiting #30 tabs tramadol 50 mg tablet 50 mg PO Q8H PRN pain #20 tabs 03/23/22 ferrous gluconate 236 mg (27 mg 236 mg PO DAILY #30 tabs 06/05/22 iron) tablet zinc acetate 50 mg (zinc) capsule 50 mg PO DAILY #30 caps 06/08/22 (Galzin) amoxicillin 875 mg-potassium 1 tab PO Q8H 10 days #30 tabs 06/30/22 clavulanate 125 mg tablet tramadol 50 mg tablet 50 mg PO Q8H PRN pain #10 tabs 06/30/22 ondansetron 4 mg disintegrating 4 mg PO Q6H PRN nausea and 07/02/22 tablet vomiting #10 tabs Allergies Allergy/AdvReac Type Severity Reaction Status Date / Time No Known Allergies Allergy Verified 07/02/22 10:43 Review of Systems Review of Systems Yes all other systems are reviewed and are negative [facility] Past Medical History Medical History Abdominal hernia Abdominal pain Asthma Colitis History of anxiety HTN (hypertension) Impaired fasting blood sugar Iron (Fe) deficiency anemia Morbid obesity PONV (postoperative nausea and vomiting) Pulmonary nodules Sleep apnea Surgical History History of hernia repair (~2020) History of hernia surgery History of hysterectomy Hx of colonoscopy Hx of tonsillectomy Family History Family History Mother Vascular dementia Colon cancer Father No problems noted. 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 GENERAL APPEARANCE: A&0 x 4, generally well appearing, no acute distress HENMT: Normal to inspection, atraumatic, face symmetrical. Normal external ears, nose, and oropharynx clear. EYE: PERRLA, EOM intact, structures appear normal NECK: Supple without lymphadenopathy. No stiffness or restricted ROM. CHEST: Normal to inspection HEART: Normal rate and regular rhythm, normal S1/S2, no M/R/G LUNGS: LS CTA, moving air well. Able to speak in complete sentences. No crackles, wheezes, or rhonchi auscultated ABDOMEN: Soft, nondistended. RLQ and LLQ tender to palpation. Normal bowel sounds noted BACK: No CVAT, no obvious deformity EXTREMITIES: Moving all extremities without difficulty. No cyanosis, clubbing, or edema. Normal capillary refill. NEUROLOGICAL: Alert and oriented, moving all 4 extremities with equal strength. CN not formally tested but appearing grossly intact. Observed to ambulate with normal gait. Cognition normal SKIN: Warm and dry without any lesions, rash, or visible sores PSYCH: Cooperative, normal affect, normal thought process Medical Decision Making Medical Decision Making MDM Narrative: 1200: Old records reviewed for previous imaging, lab studies, ECGs, or notes. Patient was assessed the emergency department. No acute distress or toxicity noted. Patient is A&O x4, LS CTA, CABRALES x4 with good strength. Based on HPI and PE plan for blood work, UA, Zofran for treatment of nausea, and Toradol for treatment of discomfort. 1300: Hematology unremarkable with no signs of leukocytosis, anemia, or thrombocytopenia. Chemistries unremarkable with no signs of kidney disease or electrolyte imbalances. 1350: Pain medication and antiemetics administered. Plan for reassessment to determine efficacy of medications. 1450: On reassessment patient reports decreased pain and relief of nausea. Previous CT scan results and blood work discussed with patient. Is recommended that patient follow-up with her GI provider for a colonoscopy and reach out to Colorectal services for further evaluation of rectal sigmoid thickening in setting of potential malignancy. 1515: Patient symptoms consistent with acute diverticulosis with low suspicion for SBO, perforation, infection, UTI. Patient is safe for discharge at this time with plan for [id number] Tylenol and/or NSAID such as ibuprofen or naproxen for fever/discomfort with dosing as per packaging. HPI, PE, diagnostics, and plan discussed with patient and family with no unanswered questions at this time. Strict return precautions given to return to the e mergency department with new, worsening, or concerning emergent symptoms. Recommended to follow-up with there primary care provider in 24-48 hours in addition to Gastroenterology and Colorectal Services for further treatment and management. Differential Diagnosis Differential Diagnoses: The differential diagnosis associated with the p resentation includes Diverticulosis, nausea Admission/Observation Consideration of admission/observation: Escalation of care including admission/observation considered Admission was considered been deemed unnecessary at this time based on HPI, PE, and diagnostic exams. Lab Data MDM Lab Attestation statement: I reviewed the patient's lab results. 07/02/22 12:29 07/02/22 12:29 Labs: Lab Results 07/02/22 07/02/22 07/02/22 Range/Units 12:29 12:29 13:58 WBC 6.3 (4.8-10.8) X10*3/uL RBC 4.94 (4.20-5.50) X10*6/uL Hgb 13.4 (12.0-16.0) g/dl Hct 41.9 (37.0-47.0) % MCV 84.8 (80.0-98.0) fL MCH 27.1 (27.0-33.0) pg MCHC 32.0 (31.0-35.0) g/dl RDW 14.1 (11.0-16.0) % Plt Count 181 (160-400) X10*3/uL MPV 9.5 (9.4-12.3) fL Immature Gran % (Auto) 0.2 (0.0-0.4) % Neut % (Auto) 67.1 (45-73) % Lymph % (Auto) 20.9 (20-40) % [place] % (Auto) 6.2 (2-11) % Eos % (Auto) 5.3 H (0-4) % Baso % (Auto) 0.3 (0-2) % Lymph # (Auto) 1.3 (1.2-4.9) X10*3/uL [place] # (Auto) 0.4 (0.1-1.2) X10*3/uL Eos # (Auto) 0.3 (0.0-0.4) X10*3/uL Baso # (Auto) 0.0 (0.0-0.2) X10*3/uL Abs Immat Gran (auto) 0.01 (0.00-0.03) X10*3/uL Absolute Neuts (auto) 4.2 (2.0-8.3) x10*3/uL Absolute Nucleated RBC 0.000 (0.0-0.012) X10*3/uL Nucleated RBC % (auto) 0.0 (0.0-0.2) /100WBC Sodium 145 (135-145) mmol/L Potassium 3.7 (3.3-5.1) mmol/L Chloride 106 (96-108) mmol/L Carbon Dioxide 29 (22-29) mmol/L Anion Gap 14 (12-20) BUN 9 (9-16) mg/dL Creatinine 0.70 (0.5-1.4) mg/dL Estim Creat Clear Calc 113.9 Estimated GFR > 60 Random Glucose 98 (60-115) mg/dL Calcium 9.0 (8.4-10.2) mg/dL Magnesium 1.9 (1.6-2.6) mg/dL Total Bilirubin 0.5 (0.0-1.0) mg/dL AST 17 (5-31) U/L ALT 17 (0-31) U/L Alkaline Phosphatase 122 H (39-117) U/L Total Protein 6.4 L (6.5-8.0) g/dL Albumin 3.9 (3.5-5.0) g/dL Urine Color Yellow Urine Appearance Clear Urine pH 7.0 (5.0-9.0) Ur Specific [place] 1.015 (1.005-1.025) Urine Protein Negative (Neg-Trace) mg/dL Urine Glucose (UA) Negative (Negative) mg/dL Urine Ketones Trace (Negative) mg/dL Urine Blood Negative (Negative) Urine Nitrite Negative (Negative) Ur Leukocyte Esterase Negative (Negative) Urine RBC 3-5 H (0-2) /HPF Urine WBC 0-5 (0-5) /HPF Ur Squamous Epith Cells 3-5 (0-2) /HPF Urine Bacteria None Seen (None Seen) Hyaline Casts 0-2 (0-2) /LPF Medications Administered Discontinued Medications Generic Name Dose Route Start Last Admin Trade Name Freq PRN Reason Stop Dose Admin Ketorolac Tromethamine 15 mg 07/02/22 12:05 07/02/22 13:51 Ketorolac Tromethamine 15 Mg/Ml Vial IVPUSH 07/02/22 12:06 15 mg ONCE ONE Administration Ondansetron HCl 4 mg 07/02/22 12:05 07/02/22 13:51 Ondansetron Hcl 4 Mg/2 Ml Vial IVPUSH 07/02/22 12:06 4 mg ONCE ONE Administration Discharge Plan Discharge Clinical Impression: Diverticulosis, Nausea Patient Disposition: Home, Self-Care Instructions: Diverticulosis (ED), Acute Nausea and Vomiting (ED) Prescriptions: New ondansetron 4 mg tablet,disintegrating 4 mg PO Q6H PRN (Reason: nausea and vomiting) Qty: 10 0RF No Action Entyvio 300 mg recon soln 300 mg IV Q8W 180 Days Qty: 1 4RF Rx Instructions: give 300 mg IV q 8 weeks albuterol sulfate [ProAir HFA] 90 mcg/actuation HFA aerosol inhaler 2 puff INHALATION Q4-6H PRN (Reason: Wheezing) Qty: 8.5 8RF tizanidine 4 mg tablet 4 mg PO Q8H PRN (Reason: muscle spasticity) Qty: 60 3RF amlodipine 10 mg tablet 10 mg PO DAILY Qty: 90 3RF Galzin 50 mg (zinc) capsule 50 mg PO DAILY Qty: 30 2RF amoxicillin-pot clavulanate 875-125 mg tablet 1 tab PO Q8H 10 Days Qty: 30 0RF tramadol 50 mg tablet 50 mg PO Q8H PRN (Reason: pain) Qty: 10 0RF tramadol 50 mg tablet 50 mg PO Q8H PRN (Reason: pain) Qty: 20 0RF ondansetron HCl 4 mg tablet 4 mg PO Q6H PRN (Reason: nausea and vomiting) Qty: 30 2RF aspirin [Adult Low Dose Aspirin] 81 mg tablet,delayed release (DR/EC) 81 mg PO DAILY ferrous gluconate 236 mg (27 mg iron) tablet 236 mg PO DAILY Qty: 30 3RF Referrals: Deivn Dos Santos MD [Primary Care Provider] - Interventions: ED Discharge Assessment Last Done: 07/02/22 15:21 Discharge Date/Time: 07/02/22 15:23 Print Language: [place]
--- NOTE | 2022-07-02 15:23 | PC.NURSE ---
pt cleared for discharge. discharge instructions reviewed with pt. denies pain
== END 2022-07-02 15:23 | disposition home or self-care (01) ==
PROVIDERS: Nurse Practitioner Family; Emergency Provider Emergency Medicine Emergency Medical Services; PCP Internal Medicine
DX: K57.30 Diverticulosis of large intestine without perforation or abscess without bleeding (principal); R11.2 Nausea with vomiting, unspecified; Z87.891 Personal history of nicotine dependence; Z79.899 Other long term (current) drug therapy
CPT/HCPCS: 36415; 80053; 81001; 83735; 85025; 96374; 96375; 99284; 99285; J1885; J2405

== ENCOUNTER 2022-07-26 11:54 | Day surgery (SDC) | payer OTHER, SELFPAY ==
[2022-07-24 15:35] VITALS: BMI 42.0
--- NOTE | 2022-07-25 12:12 | HO.ANESPROP2 ---
Documented by User: Sandra Barrios NP 07/25/22 12:13 HPI - Anesthesia Eval Consult details Narrative: 56yo F for Sigmoidoscopy Flexible PMFSH Active Problems Active Problems: All Active Problems (Updated 07/03/22 @ 00:00 by Kim Patel) Incisional hernia (Acute) Low back pain (Acute) Pulmonary nodules (Acute) Asthma (Acute) Paresthesias (Acute) Hypertension (Acute) Stiffness of finger joint of right hand (Acute) Mallet deformity of right middle finger (Acute) Open wound of right middle finger due to dog bite (Acute) Colitis (Acute) Exposure to COVID-19 virus (Acute) Rectal Hemorrhage (Acute) Abdominal hernia (Acute) Abdominal pain (Acute) Morbid obesity (Acute) Past Medical History Medical History Abdominal hernia Abdominal pain Asthma Colitis History of anxiety HTN (hypertension) Impaired fasting blood sugar Iron (Fe) deficiency anemia Morbid obesity PONV (postoperative nausea and vomiting) Pulmonary nodules Sleep apnea Family History Family History Mother Vascular dementia Colon cancer Father No problems noted. Family history of problems with anesthesia: No Surgical History Surgical History History of hernia repair (~2020) History of hernia surgery History of hysterectomy Hx of colonoscopy Hx of tonsillectomy History of Problems with Anesthesia: Yes Social History Social History Household Members: Children Are you a primary pharmacy care coordinator to a significant other at home: No Do you presently have visiting nurse or other home services: No Alcohol intake: never Patient Tobacco Use Status: Former Tobacco user Tobacco use type: Cigarette Advance Directives: No Advance Directives Information Provided: Yes Current occupational status: employed 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 Allergies Allergy/AdvReac Type Severity Reaction Status Date / Time No Known Allergies Allergy Verified 07/02/22 10:43 Home Medications Medication Instructions Recorded Confirmed Last Taken Type aspirin 81 mg tablet,delayed 81 mg PO DAILY 07/28/20 04/07/22 08/24/20 23:00 History release (Adult Low Dose Aspirin) Exam Exam Date and Time: July 25, 2022 1212 Height,Weight and Vital Signs: Height 5 ft 6 in Weight 117.934 kg Assessment and Plan Assessment Anesthesia Assessment: Chart Reviewed Final Anesthetic Review Family History of Problems with Anesthesia: No History of Problems with Anesthesia: Yes Documented by User: Matilde Costello MD 07/26/22 12:50 [facility] Past Medical History Medical History Abdominal hernia Abdominal pain Asthma Colitis History of anxiety HTN (hypertension) Impaired fasting blood sugar Iron (Fe) deficiency anemia Morbid obesity PONV (postoperative nausea and vomiting) Pulmonary nodules Sleep apnea Family History Family History Mother Vascular dementia Colon cancer Father No problems noted. 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 Allergies Allergy/AdvReac Type Severity Reaction Status Date / Time No Known Allergies Allergy Verified 07/02/22 10:43 Home Medications Medication Instructions Recorded Confirmed Last Taken Type aspirin 81 mg tablet,delayed 81 mg PO DAILY 07/28/20 04/07/22 08/24/20 23:00 History release (Adult Low Dose Aspirin) Exam Airway Mallampati Class: II TM Dist: >3cm Neck ROM: Full Heart: rrr Lungs: cta Assessment and Plan Assessment Anesthesia Assessment: Anesthesia Plan Discussed Final Anesthetic Review NPO: Yes ASA Class: III Final Preanesthetic Review: No Changes in Pt Med Stat, Meds/Allgs Chart Reviewed and Consent Obtained/Reviewed Patient Risk: Intermediate Procedure Risk: Intermediate Anesthetic Plan Anesthetic Plan: MAC: Disposition: Standard PACU
[2022-07-26 12:37] VITALS: BP 151/89; PULSE 78; RESP 18; TEMP 36.1; O2SAT 97
[2022-07-26] MEDS: Lactated Ringers 1,000 ML 100 ML IVCONT (13:11)
[2022-07-26] MEDS: Sodium Phosphate,Mono-Dibasic 133 ML ENEMA PR ×2 (13:12→13:29)
--- NOTE | 2022-07-26 13:51 | PC.NURSE ---
pt given [address] mandel directions first results loose brown. 2nd results tanish to yellow
--- NOTE | 2022-07-26 13:53 | MHC.SHP ---
Pre-Procedural Eval Section A Date of Service: 07/26/22 Section B Chief Complaint: colitis, ongoing sx Relevant Family History (Specify if Yes): No Relevant Social History: None Present Medications: see Short Stay Collaborative assessment Medical History: Significant History (Abdominal hernia Abdominal pain Asthma Colitis History of anxiety HTN (hypertension) Impaired fasting blood sugar Iron (Fe) deficiency anemia Morbid obesity PONV (postoperative nausea and vomiting) Pulmonary nodules Sleep apnea) History of Previous Operations: Relevant previous surgery/procedure and date(s) (History of hernia repair (~2020) History of hernia surgery History of hysterectomy Hx of colonoscopy Hx of tonsillectomy) Allergies: Allergies Allergy/AdvReac Type Severity Reaction Status Date / Time No Known Allergies Allergy Verified 07/02/22 10:43 Review of Systems Sugical H&P ROS: Negative: Constitution, Cardiovascular, Respiratory, Neurological, Psychiatric, Hem-Onc, Allergic/Immunologic, Gastrointestinal, Genitourinary, Musculoskeletal, Integumentary, Endocrine and Eyes/Ears/Nose/Throat Exam Surgical H&P Exam: Normal: HEENT, Normal: Heart, Normal: Lungs, Normal: Extremities, Normal: Abdomen, Normal: Skin and Normal: Neurological Plan Diagnosis/Plan: Unchanged I have reviewed the history and physical and performed a pertinent physical examination on my patient. No changes have occurred unless specified. Time Spent With Patient Time: Total time managing care of this patient today ____ minutes.
--- NOTE | 2022-07-26 13:54 | W.PM.OPN ---
Operative Note Operative Note Date of Service: 07/26/22 Narrative: Operative Information Procedure Description: sigmoidoscopy Indication: rectal bleeding Anesthesia: MAC Sigmoidoscopy Instrument: pediatric colonoscope Colonoscopy Monitoring: Vital signs and clinical assessment, continuous EKG monitoring, Pulse oximetry, Carbon Dioxide monitoring and blood pressure monitoring were done throughout the procedure. Procedure: The patient was placed in the left lateral decubitis position and pre-procedure medications were administered. After a digital rectal examination of the ano-rectum, the video colonoscope was inserted into the rectum and advanced through the colon to the transverse colon. The scope was slowly withdrawn in a retrograde panoramic fashion and the colon mucosa was carefully examined including a retroflexed view of the rectum. Findings and interventions are described below. Procedure Difficulty: easy Findings: Transverse Colon -normal Descending Colon:normal Sigmoid Colon: proximal and mid sigmoid without inflammation, diverticulosis noted with luminal narrowing The distal rectum up to 12 cm from anal verge appeared normal, but then from 12 to 24 cm (mid rectum to distal sigmoid) there was swollen, edematous mucosa with erythema and micro abscesses noted, biopsies taken Bx taken from distal rectum in separate jar stool samples taken for c diff, and stool lactoferrin Retroflexion with small internal hemorrhoids, grade I Anorectum - normal Colon preparation: good Impression and Post Procedure Diagnosis: proctosigmoiditis -some improvement compared to before but still active as above internal hemorrhoids diverticular disease Plan: await results might consider changing biologic or increasing entyvio to q4 weekly after getting an entyvio trough and antibody level--she does think entyvio is good for up to 6 weeks usually Above findings were reviewed with the patient and relevant handouts were provided if indicated.
[2022-07-26 14:30] VITALS: BP 121/65; PULSE 74; RESP 16; TEMP 36.2; O2SAT 97
[2022-07-26 14:45] VITALS: BP 161/95; PULSE 73; RESP 16; TEMP 36.2; O2SAT 97
[2022-07-26 16:23] LABS: CDiff Gene PCR NEGATIVE (Negative)
[2022-07-27 10:55] LABS: Campylobacter Not Detected (Not Detect.); Plesiomonas shigelloides Not Detected (Not Detect.); Salmonella Not Detected (Not Detect.); Vibrio Not Detected (Not Detect.)
[2022-07-27 10:56] LABS: Adenovirus F 40/41 Not Detected (Not Detect.); Astrovirus Not Detected (Not Detect.); Cryptosporidium Not Detected (Not Detect.); Cyclospora cayetanensis Not Detected (Not Detect.); E. coli EAEC Not Detected (Not Detect.); E. coli EPEC Not Detected (Not Detect.); E. coli ETEC Not Detected (Not Detect.); E. coli STEC Not Detected (Not Detect.); Entamoeba histolytica Not Detected (Not Detect.); Giardia lamblia Not Detected (Not Detect.); Norovirus GI/GII Not Detected (Not Detect.); Rotavirus A Not Detected (Not Detect.); Sapovirus Not Detected (Not Detect.); Shigella sp./EIEC Not Detected (Not Detect.); Vibrio Cholerae Not Detected (Not Detect.); Yersinia enterocolitica Not Detected (Not Detect.)
[2022-08-05 16:23] LABS: Lactoferrin, Fecal, Quant. <6.25 mcg/mL (<7.25)
== END 2022-07-26 15:30 | disposition home or self-care (01) ==
PROVIDERS: PCP Internal Medicine; Visit Provider Internal Medicine Gastroenterology
PROC: 0DJD8ZZ Inspection of Lower Intestinal Tract, Via Natural or Artificial Opening Endoscopic (ICD-10-PCS; CPT 45330; principal; 2022-07-26 14:30)
DX: K62.5 Hemorrhage of anus and rectum (principal); K52.9 Noninfective gastroenteritis and colitis, unspecified; K63.89 Other specified diseases of intestine; K57.30 Diverticulosis of large intestine without perforation or abscess without bleeding; K64.0 First degree hemorrhoids; R10.9 Unspecified abdominal pain; K46.9 Unspecified abdominal hernia without obstruction or gangrene; I10 Essential (primary) hypertension; D50.9 Iron deficiency anemia, unspecified; J45.20 Mild intermittent asthma, uncomplicated; G47.33 Obstructive sleep apnea (adult) (pediatric); R73.01 Impaired fasting glucose; E66.01 Morbid (severe) obesity due to excess calories; Z68.41 Body mass index [BMI] 40.0-44.9, adult; R91.8 Other nonspecific abnormal finding of lung field; Z79.82 Long term (current) use of aspirin; Z79.899 Other long term (current) drug therapy; Z87.891 Personal history of nicotine dependence
CPT/HCPCS: 45380; 83631; 87493; 87507; 88305

== ENCOUNTER 2022-08-11 10:23 | Outpatient (REF) | payer OTHER, SELFPAY | END 2022-08-11 10:24 | disposition home or self-care (01) | LOC: HO.MDS 10:23 | PROVIDERS: Visit Provider Internal Medicine Gastroenterology | DX: K51.90 Ulcerative colitis, unspecified, without complications (principal) | CPT/HCPCS: 36415; 80280; 82542; 96365; J3380 ==

== ENCOUNTER 2022-09-22 10:17 | Outpatient (REF) | payer OTHER, SELFPAY | END 2022-09-22 10:18 | disposition home or self-care (01) | LOC: HO.MDS 10:17 | PROVIDERS: Visit Provider Internal Medicine Gastroenterology | DX: K52.9 Noninfective gastroenteritis and colitis, unspecified (principal) | CPT/HCPCS: 96365; J3380 ==

== ENCOUNTER 2022-11-03 10:18 | Outpatient (REF) | payer OTHER, SELFPAY | END 2022-11-03 10:19 | disposition home or self-care (01) | LOC: HO.MDS 10:18 | PROVIDERS: Visit Provider Internal Medicine Gastroenterology | DX: K52.9 Noninfective gastroenteritis and colitis, unspecified (principal) | CPT/HCPCS: 96365; J3380 ==

== ENCOUNTER 2022-11-06 10:22 | Outpatient (REF) | payer OTHER, SELFPAY ==
[2022-11-06 11:25] LABS: MANUAL DIFF FLAG NO
[2022-11-06 11:43] LABS: Basophils Percent Auto 0.6 % (0-2); Eosinophils Absolute Auto 0.4 X10*3/uL (0.0-0.4); Eosinophils Percent Auto 6.3 % (0-4); Hematocrit 43.5 % (37.0-47.0); Hemoglobin 13.6 g/dl (12.0-16.0); Imm Gran Abs Auto 0.01 X10*3/uL (0.00-0.03); Imm Gran Pct Auto 0.2 % (0.0-0.4); Lymphocytes Absolute Auto 1.7 X10*3/uL (1.2-4.9); Lymphocytes Percent Auto 25.1 % (20-40); Mean Corpuscular HGB Conc 31.3 g/dl (31.0-35.0); Mean Corpuscular Hemoglobin 27.2 pg (27.0-33.0); Mean Platelet Volume 9.8 fL (9.4-12.3); Monocytes Absolute Auto 0.5 X10*3/uL (0.1-1.2); Monocytes Percent Auto 7.4 % (2-11); Neutrophils Percent Auto 60.4 % (45-73); Platelet Count 206 X10*3/uL (160-400); Red Cell Distribution Width 13.2 % (11.0-16.0); White Blood Count 6.7 X10*3/uL (4.8-10.8)
[2022-11-06 12:28] LABS: Erythrocyte Sedimentation Rate 18 MM/HR (0-20)
[2022-11-06 13:05] LABS: Alanine Aminotransferase 12 U/L (0-31); Alkaline Phosphatase 111 U/L (39-117); Anion Gap 13 (12-20); Aspartate Amino Transferase 14 U/L (5-31); Bilirubin Total 0.5 mg/dL (0.0-1.0); Blood Urea Nitrogen 13 mg/dL (9-16); C Reactive Protein 0.63 mg/dL (< or = 0.50); Calcium 9.2 mg/dL (8.4-10.2); Carbon Dioxide 30 mmol/L (22-29); Chloride 104 mmol/L (96-108); Estimated Glomerular Filt Rate > 60; Glucose Random 100 mg/dL (60-115); Sodium 143 mmol/L (135-145)
[2022-11-06 13:33] LABS: Folate 6.5 ng/mL (> or = 4.0); Vitamin B12 253 pg/mL (200-900)
[2022-11-09 01:35] LABS: Zinc 127 mcg/dL (60-130)
== END 2022-11-06 10:23 | disposition home or self-care (01) ==
LOC: HO.LAB 10:22
PROVIDERS: PCP Internal Medicine; Visit Provider Internal Medicine Gastroenterology
DX: K52.9 Noninfective gastroenteritis and colitis, unspecified (principal); K75.81 Nonalcoholic steatohepatitis (NASH)
CPT/HCPCS: 36415; 80053; 82607; 82746; 84630; 85025; 85652; 86140; 99212

== ENCOUNTER 2022-11-06 10:22 | Outpatient (AMB) | payer OTHER, SELFPAY ==
--- NOTE | 2022-11-06 10:33 | A.OFFVIS_ITS ---
Intake Vital Signs 11/06/22 10:35 Height 5 ft 6 in Weight 268 lb 15.423 oz BMI 43.4 BP 144/72 H Blood Pressure Location Lt brachial Position Sitting Pulse 80 Intake Visit Reasons: 4-6 month fu Intake Note: Laura presents in the office as a 4-6 month follow up. CC: She states that she is not having any GI concerns. 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 Allergies No Known Allergies Allergy (Verified 11/06/22 10:36) HPI 4-6 month fu HPI Details 56 yr old f here for f/u RECAP: she had been having abn bowel habits colonoscopy 08/30 --bx with chronic moderate active proctitis Stool for C diff was sent and was negative she hernia repair with Dr Stinson she was initially tried on mesalamine but this was not effective, so switched to entyvio 12/2021 LABS: 03/2022 fecal lactoferrin; 196 HGB 11 ferritin: 6 CRP:0.55 INTERIM: she has stopped smoking, 10 weeks ago she is thinking about becoming a dulla her GI sx are v good she has been getting entyvio q6 weeks she still sees v small amounts of blood mixed in sometimes, ?from hemorrhoids appetite is fair due to personal issues, but getting better EXAM: GENERAL: The patient is well developed and nontoxic. VITAL SIGNS:see workflow HEENT: Nonicteric sclerae, PERRLA, EOMI. Oropharynx clear. Moist mucous membranes. Conjunctivae appear well perfused. No thyroid mass. CHEST: Chest wall is nontender. HEART: Regular rate and rhythm without murmurs. LUNGS: Clear to auscultation bilaterally. ABDOMEN: Soft, positive bowel sounds, nontender, no organomegaly.no flank tenderness--scar noted mid line abdomen SKIN: No rash, no excessive bruising, petechiae, or purpura. NEUROLOGIC: Cranial nerves II-XII intact without motor/sensory deficit. A/P: 1/ ulcerative proctitis--stopped smoking 2/ iron def related to above PLAN: 1/ recheck labs, cont entyvio q 6 weeks PFSH Medical History Abdominal hernia Abdominal pain Asthma Colitis History of anxiety HTN (hypertension) Impaired fasting blood sugar Iron (Fe) deficiency anemia Morbid obesity PONV (postoperative nausea and vomiting) Pulmonary nodules Sleep apnea Surgical History History of hernia repair (~2020) History of hernia surgery History of hysterectomy Hx of colonoscopy Hx of tonsillectomy Family History Mother Vascular dementia Colon cancer Father No problems noted. 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 Panel Today K52.9 - Noninfective gastroenteritis and colitis, unspecified, K75.81 - Nonalcoholic steatohepatitis ([place]) C Reactive Protein Today K52.9 - Noninfective gastroenteritis and colitis, unspecified Zinc Today K52.9 - Noninfective gastroenteritis and colitis, unspecified Complete Blood Count Auto Diff Today K52.9 - Noninfective gastroenteritis and colitis, unspecified Erythrocyte Sedimentation Rate Today K52.9 - Noninfective gastroenteritis and colitis, unspecified Coding Level of Care Code Est Pt Level 3 (81589) Diagnoses Colitis K52.9
[2022-11-06 10:35] VITALS: BP 144/72; PULSE 80; BMI 43.4
== END 2022-11-06 11:04 | disposition home or self-care (01) ==
PROVIDERS: PCP Internal Medicine; Visit Provider Internal Medicine Gastroenterology
DX: K52.9 Noninfective gastroenteritis and colitis, unspecified (principal)
CPT/HCPCS: 99213

== ENCOUNTER 2022-11-28 10:22 | Outpatient (REF) | payer OTHER, SELFPAY ==
--- NOTE | ~2022-11-28 | CT_ITS ---
EXAMINATION: CT CHEST WITHOUT CONTRAST CLINICAL INFORMATION: Follow-up pulmonary nodule COMPARISON: Previous chest CT October 2021 TECHNIQUE: Multidetector volumetric CT imaging of the chest was done. Axial MIP volume rendering provided. Sagittal and coronal reformatted images were obtained. This CT examination was performed using dose optimization techniques as appropriate, variously including the following: *Automated exposure control *Adjustment of mA and/or kV according to patient size (this includes techniques or standardized protocols for targeted exams where dose is matched to indication/reason for exam; i.e. extremities or head) *Use of iterative reconstruction technique DLP: 465 mGy-cm FINDINGS: LUNGS: Stable 2 mm right upper lobe nodule axial image 96 series 5. 3 mm right lower lobe nodule axial image 213 series 5. Stable 3 mm peripheral or subpleural right lower lobe nodule axial image 321 series 5. Small calcified pulmonary nodules are stable. MEDIASTINUM: The ascending thoracic aorta is upper normal in size measuring 4 cm. The mediastinum is otherwise normal. CORONARY ARTERY CALCIFICATION: None visualized on this study. PLEURA: There is no pleural effusion. No pleural mass or thickening. AXILLA: No lymphadenopathy. UPPER ABDOMEN: Midline ventral hernia containing fat. OSSEOUS STRUCTURES: Degenerative changes of the spine. CT/CT chest wo IV con IMPRESSION: New 3 mm right lower lobe pulmonary nodule. Otherwise small pulmonary nodules are stable. According to the UPDATED 2017 Fleischner Society recommendations, the advised follow-up imaging for a 6 mm solid nodule: Low risk, no chest CT follow-up and high risk, optional chest CT follow-up in one year. Fleischner guidelines were followed.
== END 2022-11-28 10:23 | disposition home or self-care (01) ==
LOC: HO.CT 10:22
PROVIDERS: PCP Internal Medicine; Visit Provider Hospitalist
DX: R91.8 Other nonspecific abnormal finding of lung field (principal)
CPT/HCPCS: 71250

== ENCOUNTER 2022-12-15 10:24 | Outpatient (REF) | payer OTHER, SELFPAY | END 2022-12-15 10:25 | disposition home or self-care (01) | LOC: HO.MDS 10:24 | PROVIDERS: Visit Provider Internal Medicine Gastroenterology | DX: K52.9 Noninfective gastroenteritis and colitis, unspecified (principal) | CPT/HCPCS: 96365; J3380 ==

== ENCOUNTER 2023-01-09 13:01 | Outpatient (REF) | payer OTHER, SELFPAY ==
[2023-01-09 15:04] LABS: Ferritin 24 ng/mL (10-250)
== END 2023-01-09 13:02 | disposition home or self-care (01) ==
LOC: HO.LAB 13:01
PROVIDERS: Visit Provider Internal Medicine Gastroenterology
DX: K62.5 Hemorrhage of anus and rectum (principal)
CPT/HCPCS: 36415; 82728

== ENCOUNTER 2023-01-15 09:06 | Outpatient (AMB) | payer OTHER, SELFPAY ==
[2023-01-15 10:07] VITALS: BP 126/78; PULSE 67; TEMP 36.5; O2SAT 98; BMI 43.3
--- NOTE | 2023-01-15 10:07 | MHC.OFFWIV ---
Intake Vital Signs 01/15/23 10:07 Height 5 ft 6 in Weight 121.563 kg BMI 43.3 BP 126/78 Blood Pressure Location Rt brachial Position Sitting Pulse 67 Pulse Source Pulse Oximeter Temp 97.7 F Temp Source Temporal Artery Scan Pulse Oximetry (%) 98 Oxygen Delivery Method Room Air Intake Visit Reasons: EP, Left knee pain due to fall at home Intake Note: pt is here for c/o left knee pain due to fall at home Patient Tobacco Use Status: Former Tobacco user Allergies No Known Allergies Allergy (Verified 01/15/23 10:07) Do you need a note to return to daycare/school/sports/work: Yes HPI EP, Left knee pain due to fall at home HPI Details Patient tripped on threshold of door at fell onto her left anterior knee. She has continued to have pain and burning in the left anterior knee. She is able to ambulate with minimal pain. She also notes some ecchymosis on the great toe of the left foot as well. Minimal pain to this area. 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 Skin is intact denies other injuries. [facility] Medical History Abdominal hernia Abdominal pain Asthma Colitis History of anxiety HTN (hypertension) Impaired fasting blood sugar Iron (Fe) deficiency anemia Morbid obesity PONV (postoperative nausea and vomiting) Pulmonary nodules Sleep apnea Surgical History History of hernia repair (~2020) History of hernia surgery History of hysterectomy Hx of colonoscopy Hx of tonsillectomy Family History Mother Vascular dementia Colon cancer Father No problems noted. 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 Review of Systems Const Reports as per HPI and Reports no additional complaints Musc Reports no additional complaints and Reports as per HPI Skin/Breast Denies lesions Neuro Reports no additional complaints and Reports as per HPI Physical Exam Vital Signs: Last Vital Signs Temp 97.7 F 01/15/23 10:07 Pulse 67 01/15/23 10:07 BP 126/78 01/15/23 10:07 Pulse Ox 98 01/15/23 10:07 Oxygen Delivery Method Room Air 01/15/23 10:07 BMI result Body Mass Index 43.3 Const General: cooperative, comfortable and no acute distress Orientation/consciousness: patient oriented x3 Resp Effort & Inspection: normal respiratory effort Auscultation: clear to auscultation bilaterally Cardio Rate: regular rate Rhythm: regular rhythm Heart sounds: S1 normal heart sound present and S2 normal heart sound present Neuro General: patient oriented x3 Extrem Right lower extremity: normal to inspection Left lower extremity: full ROM, normal capillary refill and knee Details: tenderness (Inferior to patella.) Location: of the pre-patellar area, of the infrapatellar area and of the proximal tibia; not of the patella, swelling (Diffuse swelling of anterior knee) Location: of the infrapatellar area and normal ROM; no cyanosis Results Reviewed Results Reviewed: X-ray contemporaneously read by me with 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 No acute findings. Will report results of Radiology has other findings Assessment & Plan Assessment & Plan (1) Left knee pain: Code(s): M25.562 - Pain in left knee Qualifiers: Chronicity: acute Qualified Code(s): M25.562 - Pain in left knee (2) Prepatellar bursitis of left knee: Code(s): M70.42 - Prepatellar bursitis, left knee Plan: Patient given compression wrap advised to take OTC NSAIDs or use Voltaren gel. Rest ice and elevate as much as possible. Avoid kneeling for several weeks. I have placed orthopedics referral for further evaluation if symptoms do not improve given her job requires much ambulation lifting. Orders: Orders XR knee LT 4V Today M25.562 - Pain in left knee Referrals Orthopedics Referral M25.562 - Pain in left knee, M70.42 - Prepatellar bursitis, left knee Coding Level of Care Code Est Pt Level 4 (20825) Diagnoses Acute pain of left knee M25.562 Chronicity: acute Prepatellar bursitis of left knee M70.42
== END 2023-01-15 11:21 | disposition home or self-care (01) ==
PROVIDERS: PCP Internal Medicine; Visit Provider Physician Assistant
DX: M25.562 Pain in left knee (principal); M70.42 Prepatellar bursitis, left knee; W19.XXXA Unspecified fall, initial encounter
CPT/HCPCS: 99214

== ENCOUNTER 2023-01-15 10:36 | Outpatient (REF) | payer OTHER, SELFPAY ==
--- NOTE | ~2023-01-15 | XR_ITS ---
EXAMINATION: XR KNEE, LEFT CLINICAL INFORMATION: Left knee pain. COMPARISON: None available. TECHNIQUE: Four views of the left knee. FINDINGS: Alignment is anatomic. Moderate medial tibiofemoral cartilage space loss. Mild patellofemoral cartilage space loss. Tricompartmental osteophytes are present. Quadriceps tendon and patellar tendon enthesophytes. No significant joint effusion. XR/XR knee LT 4V IMPRESSION: Moderate medial compartment osteoarthritis.
== END 2023-01-15 10:37 | disposition home or self-care (01) ==
LOC: HO.HMGCX 10:36
PROVIDERS: PCP Internal Medicine; Visit Provider Physician Assistant
DX: M25.562 Pain in left knee (principal)
CPT/HCPCS: 73564

== ENCOUNTER 2023-01-26 10:20 | Outpatient (REF) | payer OTHER, SELFPAY | END 2023-01-26 10:21 | disposition home or self-care (01) | LOC: HO.MDS 10:20 | PROVIDERS: Visit Provider Internal Medicine Gastroenterology | DX: K52.9 Noninfective gastroenteritis and colitis, unspecified (principal) | CPT/HCPCS: 96365; J3380 ==

== ENCOUNTER 2023-02-23 02:51 | Emergency (ER) | payer OTHER, SELFPAY ==
--- NOTE | ~2023-02-23 | CT_ITS ---
EXAMINATION: CT ABDOMEN AND PELVIS WITH CONTRAST CLINICAL INFORMATION: Epigastric pain and right upper quadrant pain COMPARISON: 06/30/2022 TECHNIQUE: Multidetector volumetric images were obtained from the superior aspect of the liver through the pubic symphysis following administration 100 mL of Omnipaque 350 intravenous contrast. Sagittal and coronal reformatted images were obtained on the technologist's workstation. Oral contrast: No This CT examination was performed using dose optimization techniques as appropriate, variously including the following: *Automated exposure control *Adjustment of mA and/or kV according to patient size (this includes techniques or standardized protocols for targeted exams where dose is matched to indication/reason for exam; i.e. extremities or head) *Use of iterative reconstruction technique DLP: 1264 mGy-cm FINDINGS: LUNG BASES: Unchanged 3 mm pleural/subpleural nodule along the posterior right lower lobe. LIVER, GALLBLADDER, AND BILIARY TREE: The liver is normal in size, shape, and attenuation. No focal hepatic lesion or biliary ductal dilatation is present. The gallbladder is unremarkable with no evidence of radiopaque gallstones, gallbladder wall thickening, or obvious pericholecystic inflammatory changes. PANCREAS: Unremarkable. SPLEEN: Unremarkable. ADRENAL GLANDS: Unremarkable. KIDNEYS AND URETERS: The kidneys are normal in size, shape, and attenuation. No hydronephrosis, hydroureter, or calculi seen. No perinephric stranding. BLADDER: Unremarkable. GASTROINTESTINAL TRACT: Again seen is sigmoid colonic diverticulosis. There is short segment circumferential wall thickening of the mid sigmoid colon with pericolic fat stranding, increased from the prior exam. The inflammatory changes are centered around a couple inflamed diverticula. Stomach and small bowel unremarkable. Normal appendix. LYMPH NODES: Multiple mildly enlarged sigmoid mesocolic lymph nodes measure up to 9 mm short axis, similar to prior. VASCULAR: Unremarkable. PELVIC VISCERA: Hysterectomy. No adnexal abnormalities. ABDOMINAL WALL: Fat-containing epigastric midline hernia without inflammation. Fat-containing paraumbilical hernia without associated inflammation OSSEOUS STRUCTURES: No acute or suspicious osseous abnormalities. CT/CT abdomen pelvis w IV con IMPRESSION: * Acute uncomplicated sigmoid diverticulitis. Multiple mildly enlarged sigmoid mesocolic lymph nodes are similar to prior and likely reactive. Recommend colonoscopy to exclude underlying malignancy, if not already performed. * Hysterectomy. * Fat-containing epigastric and paraumbilical hernias without inflammation. * Unchanged 3 mm pleural/subpleural nodule along the posterior right lower lobe. No follow-up imaging recommended in low-risk patients. An optional CT chest can be performed in one year in high risk patients. Fleischner guidelines were followed.
[2023-02-23 02:53] VITALS: BP 178/81; PULSE 101; RESP 18; TEMP 36.7; O2SAT 99; BMI 43.7
--- NOTE | 2023-02-23 03:17 | ED_ITS ---
HPI - Abdominal Pain General Chief Complaint: Abdominal Pain Stated Complaint: abd pain Time Seen by Provider: 02/23/23 03:09 Source: patient Mode of arrival: ambulatory Limitations: no limitations History of Present Illness HPI narrative: Patient comes to the emergency room complaining of 10 hours of right upper quadrant pain. Patient states that she was sitting down when the pain started. Patient denies nausea vomiting diarrhea, patient states that the pain is constant and has gradually been getting worse, radiating towards the epigastric area. Patient states a couple of weeks ago, patient fell down, injured her shoulder but did not have any trip or abdominal pain. Patient states that she has history of constant diarrhea due to history of ulcerative colitis Related Data Home Medications Medication Instructions Recorded Confirmed aspirin 81 mg tablet,delayed 81 mg PO DAILY 07/28/20 04/07/22 release (Adult Low Dose Aspirin) Previous Rx's Medication Instructions Recorded albuterol sulfate 90 mcg/actuation 2 puff inhalation Q4-6H PRN 01/05/22 aerosol inhaler (ProAir HFA) Wheezing #8.5 grams tizanidine 4 mg tablet 4 mg PO Q8H PRN muscle spasticity 01/06/22 #60 tabs amlodipine 10 mg tablet 10 mg PO DAILY #90 tabs 03/14/22 tramadol 50 mg tablet 50 mg PO Q8H PRN pain #20 tabs 03/23/22 tramadol 50 mg tablet 50 mg PO Q8H PRN pain #10 tabs 06/30/22 ondansetron 4 mg disintegrating 4 mg PO Q6H PRN nausea and 07/02/22 tablet vomiting #10 tabs zinc acetate 50 mg (zinc) capsule 50 mg PO DAILY #90 caps 08/14/22 (Galzin) ferrous gluconate 240 mg (27 mg 240 mg PO DAILY #90 tabs 01/22/23 iron) tablet vedolizumab 300 mg intravenous 300 mg IV Q6W 6 months #1 ea 01/24/23 solution (Entyvio) cyanocobalamin (vitamin B-12) 1,000 mcg PO DAILY 90 days #90 caps 02/13/23 1,000 mcg capsule Lactobacillus rhamnosus GG 15 1 cap PO DAILY #30 caps 02/23/23 billion cell sprinkle capsule (Culturelle) levofloxacin 500 mg tablet 500 mg PO DAILY #9 tabs 02/23/23 metronidazole 500 mg tablet 500 mg PO BID #19 tabs 02/23/23 Allergies Allergy/AdvReac Type Severity Reaction Status Date / Time No Known Allergies Allergy Verified 01/15/23 10:07 Review of Systems Review of Systems Constitutional : No Weight loss, No Fever, No Chills, No Night Sweats, No Fatigue, No Malaise ENT/Mouth : No Hearing loss, No Ear Pain, No Nasal Congestion, No Sinus Pain, No Hoarseness, No sore throat, No Rhinorrhea, No Swallowing Difficulty Eyes: No Eye Pain, No Swelling, No Redness, No Foreign Body, No Discharge, No Vision Changes Cardiovascular : No Chest Pain, No SOB, No Dyspnea on Exertion, No Orthopnea, No Edema, No Palpitations Respiratory : No Cough, No Sputum, No Wheezing, No Smoke Exposure, No Dyspnea Gastrointestinal : No Nausea, No Vomiting, chronic diarrhea, new right upper quadrant pain and mild epigastric pain Genitourinary : no irregular bleeding, No Dysuria, No Urinary Frequency, No Hematuria, No Urinary Incontinence, No Urgency, No Flank Pain, No Urinary Flow Changes, No Hesitancy Musculoskeletal : No joint pain, No Myalgias, No Joint Swelling Skin : No Skin Lesions, No rash Neuro : No Weakness, No Numbness, No Paresthesias, No Loss of Consciousness, No Dizziness, No Headache Psych : No Anxiety/Panic, No Depression, No SI/HI/AH/VH, No Social Issues, Heme/Lymph: No Bruising, No Bleeding,No Lymphadenopathy Endocrine : No Polyuria, No Polydipsia, No Temperature Intolerance PMFSH Past Medical History Medical History Abdominal hernia Abdominal pain Asthma Colitis History of anxiety HTN (hypertension) Impaired fasting blood sugar Iron (Fe) deficiency anemia Morbid obesity PONV (postoperative nausea and vomiting) Pulmonary nodules Sleep apnea Surgical History History of hernia repair (~2020) History of hernia surgery History of hysterectomy Hx of colonoscopy Hx of tonsillectomy Family History Family History Mother Vascular dementia Colon cancer Father No problems noted. 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[employer] Physical Exam ED Vital Signs: Vital Signs - 24 hr 02/23/23 02:53 Temperature 98.0 F Pulse Rate 101 H Respiratory Rate 18 Blood Pressure 178/81 H Pulse Oximetry 99 Oxygen Delivery Method Room Air BMI result Body Mass Index 43.7 Course Course Course Narrative: -all of patient's labs and imaging pending Medical Decision Making Medical Decision Making MDM Narrative: --my interpretation of labs, normal hematology, normal chemistry, urinalysis negative for UTI -my interpretation of CT scan: No signs of acute cholecystitis -radiology report: Acute diverticulitis -admission offered to the patient, patient would like to be going home, patient given p.o. antibiotics here in the emergency room and pain meds Differential Diagnosis Differential Diagnoses: The differential diagnosis associated with the presentation includes (Acute cholecystitis, pancreatitis, small-bowel obstruction, perforation, diverticulitis) Admission/Observation Consideration of admission/observation: Escalation of care including admission/observation considered (Admission offered, patient respectfully declined) Lab Data [facility] Lab Attestation statement: I reviewed the patient's lab results. 02/23/23 03:22 02/23/23 03:22 Labs: Lab Results 02/23/23 02/23/23 Range/Units 03:22 04:30 WBC 6.4 (4.8-10.8) X10*3/uL RBC 4.97 (4.20-5.50) X10*6/uL Hgb 13.9 (12.0-16.0) g/dl Hct 43.2 (37.0-47.0) % MCV 86.9 (80.0-98.0) fL MCH 28.0 (27.0-33.0) pg MCHC 32.2 (31.0-35.0) g/dl RDW 13.1 (11.0-16.0) % Plt Count 196 (160-400) X10*3/uL MPV 9.6 (9.4-12.3) fL Immature Gran % (Auto) 0.2 (0.0-0.4) % Neut % (Auto) 62.1 (45-73) % Lymph % (Auto) 25.4 (20-40) % [place] % (Auto) 6.4 (2-11) % Eos % (Auto) 5.3 H (0-4) % Baso % (Auto) 0.6 (0-2) % Lymph # (Auto) 1.6 (1.2-4.9) X10*3/uL [place] # (Auto) 0.4 (0.1-1.2) X10*3/uL Eos # (Auto) 0.3 (0.0-0.4) X10*3/uL Baso # (Auto) 0.0 (0.0-0.2) X10*3/uL Abs Immat Gran (auto) 0.01 (0.00-0.03) X10*3/uL Absolute Neuts (auto) 4.0 (2.0-8.3) x10*3/uL Absolute Nucleated RBC 0.000 (0.0-0.012) X10*3/uL Nucleated RBC % (auto) 0.0 (0.0-0.2) /100WBC ESR 18 (0-20) MM/HR Sodium 141 (135-145) mmol/L Potassium 4.3 (3.3-5.1) mmol/L Chloride 105 (96-108) mmol/L Carbon Dioxide 28 (22-29) mmol/L Anion Gap 12 (12-20) BUN 12 (9-16) mg/dL Creatinine 0.76 (0.5-1.4) mg/dL Estim Creat Clear Calc 104.2 Estimated GFR > 60 Random Glucose 112 (60-115) mg/dL Calcium 9.5 (8.4-10.2) mg/dL Total Bilirubin 0.4 (0.0-1.0) mg/dL Direct Bilirubin 0.2 (0.0-0.5) mg/dL AST 25 (5-31) U/L ALT 18 (0-31) U/L Alkaline Phosphatase 132 H (39-117) U/L C-Reactive Protein 0.66 H (< or = 0.50) mg/dL Total Protein 7.7 (6.5-8.0) g/dL Albumin 4.0 (3.5-5.0) g/dL Lipase 21 (8-78) U/L Urine Color Yellow Urine Appearance Clear Urine pH 7.5 (5.0-9.0) Ur Specific [place] 1.015 (1.005-1.025) Urine Protein Negative (Neg-Trace) mg/dL Urine Glucose (UA) Negative (Negative) mg/dL Urine Ketones Negative (Negative) mg/dL Urine Blood Trace H (Negative) Urine Nitrite Negative (Negative) Ur Leukocyte Esterase Negative (Negative) Urine RBC 3-5 H (0-2) /HPF Urine WBC 0-5 (0-5) /HPF Ur Squamous Epith Cells 0-2 (0-2) /HPF Urine Bacteria None Seen (None Seen) Hyaline Casts 0-2 (0-2) /LPF Independent Interpretation I performed an independent interpretation of an: CT Scan Radiology Impression Discussion of test interpretation with radiology: I have reviewed the radiologist's reading. Radiologist Impression: FINDINGS: LUNG BASES: Unchanged 3 mm pleural/subpleural nodule along the posterior right lower lobe. LIVER, GALLBLADDER, AND BILIARY TREE: The liver is normal in size, shape, and attenuation. No focal hepatic lesion or biliary ductal dilatation is present. The gallbladder is unremarkable with no evidence of radiopaque gallstones, gallbladder wall thickening, or obvious pericholecystic inflammatory changes. PANCREAS: Unremarkable. SPLEEN: Unremarkable. ADRENAL GLANDS: Unremarkable. KIDNEYS AND URETERS: The kidneys are normal in size, shape, and attenuation. No hydronephrosis, hydroureter, or calculi seen. No perinephric stranding. BLADDER: Unremarkable. GASTROINTESTINAL TRACT: Again seen is sigmoid colonic diverticulosis. There is short segment circumferential wall thickening of the mid sigmoid colon with pericolic fat stranding, increased from the prior exam. The inflammatory changes are centered around a couple inflamed diverticula. Stomach and small bowel unremarkable. Normal appendix. LYMPH NODES: Multiple mildly enlarged sigmoid mesocolic lymph nodes measure up to 9 mm short axis, similar to prior. VASCULAR: Unremarkable. PELVIC VISCERA: Hysterectomy. No adnexal abnormalities. ABDOMINAL WALL: Fat-containing epigastric midline hernia without inflammation. Fat-containing paraumbilical hernia without associated inflammation OSSEOUS STRUCTURES: No acute or suspicious osseous abnormalities. CT/CT abdomen pelvis w IV con IMPRESSION: * Acute uncomplicated sigmoid diverticulitis. Multiple mildly enlarged sigmoid mesocolic lymph nodes are similar to prior and likely reactive. Recommend colonoscopy to exclude underlying malignancy, if not already performed. * Hysterectomy. * Fat-containing epigastric and paraumbilical hernias without inflammation. * Unchanged 3 mm pleural/subpleural nodule along the posterior right lower lobe. No follow-up imaging recommended in low-risk patients. An optional CT chest can be performed in one year in high risk patients. Fleischner guidelines were followed. Medications Administered Discontinued Medications Generic Name Dose Route Start Last Admin Trade Name Freq PRN Reason Stop Dose Admin Iohexol 100 ml 02/23/23 04:28 02/23/23 04:28 Iohexol 350 Mg/Ml 100 Ml Infus..Btl IV 02/23/23 04:29 100 ml ONCE ONE Administration Morphine Sulfate 4 mg 02/23/23 03:17 02/23/23 03:27 Morphine Sulfate 4 Mg/Ml Cartridge IVPUSH 02/23/23 03:18 4 mg ONCE ONE Administration Protocol Ondansetron HCl 4 mg 02/23/23 03:17 02/23/23 03:27 Ondansetron Hcl 4 Mg/2 Ml Vial IVPUSH 02/23/23 03:18 4 mg ONCE ONE Administration Critical Care Time Critical Care Time Critical Care Time: Yes Total Critical Care Time: 60 Attestation: Please follow-up with your primary care physician tomorrow. If you have any worsening or new symptoms, please return to the emergency room or call 911 Discharge Plan Discharge Clinical Impression: Diverticulitis Patient Disposition: Home, Self-Care Instructions: Diverticulitis (ED), Diverticulitis Diet (ED) Additional Instructions: Please follow-up with your primary care physician tomorrow. If you have any worsening or new symptoms, please return to the emergency room or call 911 Prescriptions: New levofloxacin 500 mg tablet 500 mg PO DAILY Qty: 9 0RF metronidazole 500 mg tablet 500 mg PO BID Qty: 19 0RF Culturelle 15 billion cell capsule, sprinkle 1 cap PO DAILY Qty: 30 0RF No Action albuterol sulfate [ProAir HFA] 90 mcg/actuation HFA aerosol inhaler 2 puff INHALATION Q4-6H PRN (Reason: Wheezing) Qty: 8.5 8RF tizanidine 4 mg tablet 4 mg PO Q8H PRN (Reason: muscle spasticity) Qty: 60 3RF amlodipine 10 mg tablet 10 mg PO DAILY Qty: 90 3RF Galzin 50 mg (zinc) capsule 50 mg PO DAILY Qty: 90 2RF ferrous gluconate 240 mg (27 mg iron) tablet 240 mg PO DAILY Qty: 90 1RF Entyvio 300 mg recon soln 300 mg IV Q6W 180 Days Qty: 1 5RF Rx Instructions: give 300 mg IV q 6 weeks cyanocobalamin (vitamin B-12) 1,000 mcg capsule 1,000 mcg PO DAILY 90 Days Qty: 90 2RF ondansetron 4 mg tablet,disintegrating 4 mg PO Q6H PRN (Reason: nausea and vomiting) Qty: 10 0RF tramadol 50 mg tablet 50 mg PO Q8H PRN (Reason: pain) Qty: 10 0RF tramadol 50 mg tablet 50 mg PO Q8H PRN (Reason: pain) Qty: 20 0RF aspirin [Adult Low Dose Aspirin] 81 mg tablet,delayed release (DR/EC) 81 mg PO DAILY Stand Alone Forms: Work/School Release
[2023-02-23 03:25] LABS: MANUAL DIFF FLAG NO
[2023-02-23 03:27] LABS: Basophils Percent Auto 0.6 % (0-2); Eosinophils Absolute Auto 0.3 X10*3/uL (0.0-0.4); Eosinophils Percent Auto 5.3 % (0-4); Hematocrit 43.2 % (37.0-47.0); Hemoglobin 13.9 g/dl (12.0-16.0); Imm Gran Abs Auto 0.01 X10*3/uL (0.00-0.03); Imm Gran Pct Auto 0.2 % (0.0-0.4); Lymphocytes Absolute Auto 1.6 X10*3/uL (1.2-4.9); Lymphocytes Percent Auto 25.4 % (20-40); Mean Corpuscular HGB Conc 32.2 g/dl (31.0-35.0); Mean Corpuscular Volume 86.9 fL (80.0-98.0); Mean Platelet Volume 9.6 fL (9.4-12.3); Monocytes Absolute Auto 0.4 X10*3/uL (0.1-1.2); Monocytes Percent Auto 6.4 % (2-11); Neutrophils Percent Auto 62.1 % (45-73); Platelet Count 196 X10*3/uL (160-400); Red Blood Count 4.97 X10*6/uL (4.20-5.50); Red Cell Distribution Width 13.1 % (11.0-16.0); White Blood Count 6.4 X10*3/uL (4.8-10.8)
[2023-02-23] MEDS: Morphine Sulfate 4 MG/ML CARTRIDGE IVPUSH (03:27)
[2023-02-23] MEDS: ondansetron HCL 4 MG/2 ML VIAL IVPUSH (03:27)
--- NOTE | 2023-02-23 03:33 | PC.NURSE ---
pt from home reporting sudden onset of right upper quadrant pain since 5pm 02/22. pt reports she tried eating a sandwich around 6pm and the pain neither worsened or got better. pt reports hx of colitis and reports the pain does not feel like that pain. pt reports diarrhea but reports that is normal bowel movements for her baseline. pt denies n/v. pt abdomen soft but tender to touch in the upper right quadrant. IV established, 20G left AC, labs obtained and pt medicated per may.
[2023-02-23 03:53] LABS: Alanine Aminotransferase 18 U/L (0-31); Alkaline Phosphatase 132 U/L (39-117); Anion Gap 12 (12-20); Aspartate Amino Transferase 25 U/L (5-31); Bilirubin Direct 0.2 mg/dL (0.0-0.5); Bilirubin Total 0.4 mg/dL (0.0-1.0); Blood Urea Nitrogen 12 mg/dL (9-16); C Reactive Protein 0.66 mg/dL (< or = 0.50); Calcium 9.5 mg/dL (8.4-10.2); Carbon Dioxide 28 mmol/L (22-29); Chloride 105 mmol/L (96-108); Creatinine Clr Calc Pharmacy 104.2; Estimated Glomerular Filt Rate > 60; Glucose Random 112 mg/dL (60-115); Lipase 21 U/L (8-78); Potassium 4.3 mmol/L (3.3-5.1); Sodium 141 mmol/L (135-145); Total Protein 7.7 g/dL (6.5-8.0)
[2023-02-23 04:00] VITALS: BP 139/80; PULSE 81; RESP 18; TEMP 36.3; O2SAT 94
[2023-02-23 04:01] LABS: Erythrocyte Sedimentation Rate 18 MM/HR (0-20)
--- NOTE | 2023-02-23 04:26 | PC.NURSE ---
pt ambulating to bathroom with steady gait, urine sample obtained.
[2023-02-23] MEDS: iohexoL 350 MG/ML 100 ML INFUS..BTL IV (04:28)
[2023-02-23 04:38] LABS: Appearance Urine Clear; Color Urine Yellow; Glucose Urine UA Negative (Negative); Leukocyte Esterase Urine Negative (Negative); Nitrite Urine Negative (Negative); PH 7.5 (5.0-9.0); Specific Gravity - Urine 1.015 (1.005-1.025); UMIC TRIGGER UACC YES; Urine Blood Trace (Negative); Urine Ketones Negative (Negative); Urine Protein Negative (Neg-Trace)
[2023-02-23 04:41] LABS: Bacteria Urine None Seen (None Seen); Hyaline Casts Urine 0-2 /LPF (0-2); Squamous Epithelial Cell Urine 0-2 /HPF (0-2); WBC Urine 0-5 /HPF (0-5)
[2023-02-23] MEDS: levoFLOXacin 500 MG TABLET PO (05:57)
[2023-02-23] MEDS: HYDROmorphone HCl 1 MG/ML SYRINGE IVPUSH (05:57)
[2023-02-23] MEDS: metroNIDAZOLE 500 MG TABLET PO (05:57)
--- NOTE | 2023-02-23 06:00 | PC.NURSE ---
pt medicated per mar.
== END 2023-02-23 06:59 | disposition home or self-care (01) ==
PROVIDERS: Emergency Provider Emergency Medicine; PCP Internal Medicine
DX: K57.32 Diverticulitis of large intestine without perforation or abscess without bleeding (principal); Z79.899 Other long term (current) drug therapy; Z87.891 Personal history of nicotine dependence
CPT/HCPCS: 36415; 74177; 80048; 80076; 81001; 83690; 85025; 85652; 86140; 96374; 96375; 99284; J1170; J2270; J2405; Q9967

== ENCOUNTER 2023-03-09 10:21 | Outpatient (REF) | payer OTHER, SELFPAY | END 2023-03-09 10:22 | disposition home or self-care (01) | LOC: HO.MDS 10:21 | PROVIDERS: Visit Provider Internal Medicine Gastroenterology | DX: K52.9 Noninfective gastroenteritis and colitis, unspecified (principal) | CPT/HCPCS: 96365; J3380 ==

== ENCOUNTER 2023-04-20 10:20 | Outpatient (REF) | payer OTHER, SELFPAY ==
[2023-04-20 10:52] LABS: MANUAL DIFF FLAG NO
[2023-04-20 10:54] LABS: Basophils Percent Auto 0.7 % (0-2); Eosinophils Absolute Auto 0.3 X10*3/uL (0.0-0.4); Eosinophils Percent Auto 6.4 % (0-4); Hematocrit 40.6 % (37.0-47.0); Imm Gran Abs Auto 0.01 X10*3/uL (0.00-0.03); Imm Gran Pct Auto 0.2 % (0.0-0.4); Lymphocytes Absolute Auto 1.5 X10*3/uL (1.2-4.9); Lymphocytes Percent Auto 27.3 % (20-40); Mean Corpuscular Volume 87.5 fL (80.0-98.0); Mean Platelet Volume 9.3 fL (9.4-12.3); Monocytes Absolute Auto 0.4 X10*3/uL (0.1-1.2); Monocytes Percent Auto 7.7 % (2-11); Neutrophils Absolute Auto 3.1 x10*3/uL (2.0-8.3); Neutrophils Percent Auto 57.7 % (45-73); Platelet Count 169 X10*3/uL (160-400); Red Blood Count 4.64 X10*6/uL (4.20-5.50); Red Cell Distribution Width 13.3 % (11.0-16.0); White Blood Count 5.4 X10*3/uL (4.8-10.8)
[2023-04-20 11:09] LABS: Alanine Aminotransferase 14 U/L (0-31); Albumin Level 3.7 g/dL (3.5-5.0); Alkaline Phosphatase 116 U/L (39-117); Anion Gap 11 (12-20); Aspartate Amino Transferase 16 U/L (5-31); Bilirubin Total 0.5 mg/dL (0.0-1.0); Blood Urea Nitrogen 9 mg/dL (9-16); C Reactive Protein 0.69 mg/dL (< or = 0.50); Calcium 9.4 mg/dL (8.4-10.2); Carbon Dioxide 29 mmol/L (22-29); Chloride 105 mmol/L (96-108); Estimated Glomerular Filt Rate > 60; Glucose Random 105 mg/dL (60-115); Potassium 4.3 mmol/L (3.3-5.1); Sodium 141 mmol/L (135-145); Total Protein 6.4 g/dL (6.5-8.0)
== END 2023-04-20 10:21 | disposition home or self-care (01) ==
LOC: HO.MDS 10:20
PROVIDERS: Visit Provider Internal Medicine Gastroenterology
DX: K52.9 Noninfective gastroenteritis and colitis, unspecified (principal)
CPT/HCPCS: 36415; 80053; 85025; 86140; 96365; J3380

== ENCOUNTER 2023-04-27 11:06 | Outpatient (AMB) | payer OTHER, SELFPAY ==
--- NOTE | 2023-04-27 11:10 | A.OFFVIS_ITS ---
Intake Vital Signs 04/27/23 11:11 Height 5 ft 5 in Weight 258 lb BMI 42.9 BP 140/66 H Blood Pressure Location Lt brachial Position Sitting Pulse 81 Intake Visit Reasons: 6 month follow up Intake Note: Patient 6 month follow up for Colitis and lab results. Patient cc: internal bloody hemorrhoids, denies any other GI issues. 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 Accompanied by: Self / Same As Patient Allergies No Known Allergies Allergy (Verified 04/27/23 11:10) HPI 6 month follow up HPI Details 57 yr old f here for f/u RECAP: she had been having abn bowel habits colonoscopy 08/30 --bx with chronic moderate active proctitis Stool for C diff was sent and was negative she hernia repair with Dr Stinson she was initially tried on mesalamine but this was not effective, so switched to entyvio 12/2021 Sigmoidoscopy: 08/01--moderate proctitis, on entyvio q6 wk CT 03/03-- uncomplicated diverticulitis INTERIM: has been doing well she went to the ED Feb 23 she had chest tightness and was assessed , ED revealed acute diverticulitis appetite is fair had nausea but better now always sees small amnt of blood in stool still taking iron supplement she has been getting entyvio q6 weeks still thinkign about being dulla EXAM: GENERAL: The patient is well developed and nontoxic. VITAL SIGNS:see workflow HEENT: Nonicteric sclerae, PERRLA, EOMI. Oropharynx clear. Moist mucous membranes. Conjunctivae appear well perfused. No thyroid mass. CHEST: Chest wall is nontender. HEART: Regular rate and rhythm without murmurs. LUNGS: Clear to auscultation bilaterally. ABDOMEN: Soft, positive bowel sounds, nontender, no organomegaly.no flank tenderness--scar noted mid line abdomen SKIN: No rash, no excessive bruising, petechiae, or purpura. NEUROLOGIC: Cranial nerves II-XII intact without motor/sensory deficit. A/P: 1/ ulcerative proctitis--stopped smoking 2/ iron def related to above, latest HGB has been good 13 g/dl PLAN: 1/ recheck fecal lactoferrin, might need rept sigmoidoscopy PFSH Medical History Abdominal hernia Abdominal pain Asthma Colitis History of anxiety HTN (hypertension) Impaired fasting blood sugar Iron (Fe) deficiency anemia Morbid obesity PONV (postoperative nausea and vomiting) Pulmonary nodules Sleep apnea Surgical History History of hernia repair (~2020) History of hysterectomy Hx of tonsillectomy Hx of colonoscopy History of hernia surgery Family History Mother Vascular dementia Colon cancer Father No problems noted. 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 Today K51.50 - Left sided colitis without complications Coding Level of Care Code Est Pt Level 3 (56623) Diagnoses Rectal Hemorrhage K62.5
[2023-04-27 11:11] VITALS: BP 140/66; PULSE 81; BMI 42.9
== END 2023-04-27 11:40 | disposition home or self-care (01) ==
PROVIDERS: PCP Internal Medicine; Visit Provider Internal Medicine Gastroenterology
DX: K62.5 Hemorrhage of anus and rectum (principal)
CPT/HCPCS: 99213

== ENCOUNTER → 2023-04-27 11:06 | Outpatient (BNVA) | payer OTHER, SELFPAY | PROVIDERS: PCP Internal Medicine; Visit Provider Internal Medicine Gastroenterology | DX: K62.5 Hemorrhage of anus and rectum (principal) | CPT/HCPCS: 99212 ==

== ENCOUNTER 2023-05-02 07:53 | Outpatient (REF) | payer OTHER, SELFPAY ==
[2023-05-11 00:08] LABS: Lactoferrin, Fecal, Quant. 134.18 mcg/mL (<7.25)
== END 2023-05-02 07:54 | disposition home or self-care (01) ==
LOC: HO.LNP 07:53
PROVIDERS: Visit Provider Internal Medicine Gastroenterology
DX: K51.50 Left sided colitis without complications (principal)
CPT/HCPCS: 83631

== ENCOUNTER 2023-06-01 10:22 | Outpatient (REF) | payer OTHER, SELFPAY ==
[2023-06-01 10:25] VITALS: BP 155/83; PULSE 76; RESP 18; TEMP 37
[2023-06-01] MEDS: Vedolizumab 300 MG in 0.9 % Sodium Chloride 250 ML 510 MG IV (11:48)
== END 2023-06-01 10:23 | disposition home or self-care (01) ==
LOC: HO.MDS 10:22
PROVIDERS: Visit Provider Internal Medicine Gastroenterology
DX: K52.9 Noninfective gastroenteritis and colitis, unspecified (principal)
CPT/HCPCS: 96365; J3380

== ENCOUNTER 2023-08-03 10:31 | Emergency (ER) | payer OTHER, SELFPAY ==
--- NOTE | ~2023-08-03 | XR_ITS ---
EXAMINATION: XR KNEE, RIGHT CLINICAL INFORMATION: Right knee pain. COMPARISON: None available. TECHNIQUE: Four views of the right knee. FINDINGS: Alignment is anatomic. Moderate medial tibiofemoral and patellofemoral cartilage space loss. Tricompartmental osteophytes are present. Quadriceps tendon and patellar tendon enthesophytes. Small suprapatellar joint effusion. XR/XR knee RT 4V IMPRESSION: Moderate osteoarthritis of the right knee.
--- NOTE | ~2023-08-03 | US_ITS ---
EXAMINATION: US VENOUS ULTRASOUND WITH DOPPLER LOWER EXTREMITY, RIGHT CLINICAL INFORMATION: Knee pain. Calf pain. COMPARISON: None available. TECHNIQUE: Ultrasound of the deep veins is performed from the hip to the calf with compression sonography and color and pulse Doppler assessment. Spectral analysis with color-flow imaging is performed. FINDINGS: There is normal venous compression and respiratory variation and augmented flow. The visualized common femoral vein, superficial femoral vein, profunda femoral vein, popliteal vein, and the trifurcation region shows no evidence of deep venous thrombosis. There is no significant popliteal fossa cyst. Incidental note is made of fluid around the anterior aspect of the right knee. If the patient's symptoms persist, followup ultrasound in 5 days 7 days might be of value to exclude proximal propagation from a non-visualized calf vein. US/US venous duplex LE RT IMPRESSION: No DVT demonstrated in the right lower extremity. Incidental note is made of fluid around the anterior aspect of the right knee.
[2023-08-03 11:28] VITALS: BP 164/100; PULSE 79; RESP 18; TEMP 35.7; O2SAT 100; BMI 41.9
[2023-08-03 14:21] VITALS: BP 154/90; PULSE 117; RESP 16; TEMP 36.6; O2SAT 98
--- NOTE | 2023-08-03 15:09 | ED.GENADULT ---
HPI - General Adult General Chief complaint: Extremity Problem Stated complaint: pain behind knee Time Seen by Provider: 08/03/23 14:48 Source: patient Mode of arrival: ambulatory Limitations: no limitations History of Present Illness HPI narrative: patient is a 57-year-old female presents emergency department for evaluation of right knee pain. Reports yesterday sudden onset of pain, felt to the anterior knee as a burning sensation but pain is also present to the back of the knee and feels a tightness / pulling sensation in to the calf. Intermittent pain radiating towards the hip along the lateral aspect. She denies any precipitating injury. She denies fevers, chills, redness, swelling, rashes or lesions, numbness or tingling. Denies personal history of DVT/ PE / malignancy. Pain is exacerbated with ambulation. She trialed Lidoderm patches without any relief. Did not trial any OTC Oral analgesics. Related Data Home Medications ?Medication ?Instructions ?Recorded ?Confirmed aspirin 81 mg tablet,delayed 81 mg PO DAILY 07/28/20 04/07/22 release (Adult Low Dose Aspirin) Previous Rx's ?Medication ?Instructions ?Recorded albuterol sulfate 90 mcg/actuation 2 puff inhalation Q4-6H PRN 01/05/22 aerosol inhaler (ProAir HFA) Wheezing #8.5 grams tizanidine 4 mg tablet 4 mg PO Q8H PRN muscle spasticity 01/06/22 #60 tabs tramadol 50 mg tablet 50 mg PO Q8H PRN pain #20 tabs 03/23/22 tramadol 50 mg tablet 50 mg PO Q8H PRN pain #10 tabs 06/30/22 ondansetron 4 mg disintegrating 4 mg PO Q6H PRN nausea and 07/02/22 tablet vomiting #10 tabs zinc acetate 50 mg (zinc) capsule 50 mg PO DAILY #90 caps 08/14/22 (Galzin) vedolizumab 300 mg intravenous 300 mg IV Q6W 6 months #1 ea 01/24/23 solution (Entyvio) cyanocobalamin (vitamin B-12) 1,000 mcg PO DAILY 90 days #90 caps 02/13/23 1,000 mcg capsule Lactobacillus rhamnosus GG 15 1 cap PO DAILY #30 caps 02/23/23 billion cell sprinkle capsule (Culturelle) levofloxacin 500 mg tablet 500 mg PO DAILY #9 tabs 02/23/23 metronidazole 500 mg tablet 500 mg PO BID #19 tabs 02/23/23 amlodipine 10 mg tablet 10 mg PO DAILY #90 tabs 04/06/23 ferrous gluconate 240 mg (27 mg 240 mg PO DAILY #90 tabs 07/30/23 iron) tablet Allergies Allergy/AdvReac Type Severity Reaction Status Date / Time No Known Allergies Allergy Verified 08/03/23 11:31 Review of Systems Review of Systems: Yes all other systems are reviewed and are negative [facility] Past Medical History Attestation statement: The following information was validated with the patient. Source: old records reviewed Medical History Pulmonary nodules Iron (Fe) deficiency anemia PONV (postoperative nausea and vomiting) Colitis History of anxiety Sleep apnea Impaired fasting blood sugar HTN (hypertension) Asthma Abdominal hernia Abdominal pain Morbid obesity Surgical History History of hernia repair (~2020) History of hysterectomy Hx of tonsillectomy Hx of colonoscopy History of hernia surgery Family History Family History Mother Vascular dementia Colon cancer Father No problems noted. 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 No acute distress.?Normal affect. Eyes: Pupils equal, round and reactive to light.? ENT: Pharynx normal.?? Neck: Normal inspection.? Neck supple.?? CVS: Heart sounds normal. Normal heart rate and rhythm.? Pulses normal.?? Respiratory: No respiratory distress.? Lung sounds clear to auscultation bilaterally?? Abdomen: Soft and non-tender. Normoactive bowel sounds. ? Skin: Skin warm and dry.? Normal skin color.? Extremities: No lower extremity edema.? right calf tenderness upon palpation. 2+ DP/PT pulse bilaterally. Right knee with no laxity on examination, no erythema warmth, or obvious effusion. No deformity. Neuro: Moves all extremities spontaneously. Sensation intact bilaterally. Ambulates with normal steady gait. Medications Administered Discontinued Medications Generic Name Dose Route Start Last Admin Trade Name Freq PRN Reason Stop Dose Admin Acetaminophen 975 mg 08/03/23 15:20 08/03/23 15:25 Acetaminophen 325 Mg Tablet PO 08/03/23 15:21 975 mg ONCE ONE Administration Ibuprofen 400 mg 08/03/23 15:20 08/03/23 15:24 Ibuprofen 400 Mg Tablet PO 08/03/23 15:21 400 mg ONCE ONE Administration Medical Decision Making Medical Decision Making MDM Narrative: patient is a 57-year-old female with past medical history of hernia, pulmonary nodules, hypertension, ulcerative colitis, obesity who presents emergency department for evaluation of right knee pain as per HPI. On examination does not have obvious deformity, the extremity is neurovascularly intact distally. She is however obese, has calf tenderness upon palpation, venous duplex ultrasound was obtained to exclude DVT, Which was negative. 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 We discussed conservative treatment including rest, ice, Hany bandage for compression, elevation, continued use of Lidoderm patches in addition to OTC analgesics including acetaminophen and ibuprofen. Recommended outpatient follow-up with her primary care provider. She is ambulatory with a steady gait. All questions were answered. Stable for discharge. Differential Diagnosis Differential Diagnoses: The differential diagnosis associated with the presentation includes ( Arthritis, DVT, Muscular strain, not consistent with septic arthritis, no rashes or lesions, has no recent tick bites or known exposure, less consistent with gout.) Admission/Observation Consideration of admission/observation: Escalation of care including admission/observation considered ( See narrative above) Independent Interpretation I performed an independent interpretation of an: Plain X-Ray ( No acute fracture or dislocation) and Ultrasound ( No DVT) Radiology Impression Discussion of test interpretation with radiology: I have reviewed the radiologist's reading. Radiologist Impression: XR/XR knee RT 4V IMPRESSION: Moderate osteoarthritis of the right knee. US/US venous duplex LE RT IMPRESSION: No DVT demonstrated in the right lower extremity. Incidental note is made of fluid around the anterior aspect of the right knee. External Record Review External record reviewed: Outpatient record Prescription Management I considered prescription management with: Pain Medication ( see narrative above) Discharge Plan Discharge Clinical Impression: Osteoarthritis Patient Disposition: Home, Self-Care Instructions: Osteoarthritis (ED) Additional Instructions: You can take ibuprofen 200 mg, 3 tablets (600mg) every 6-8 hours as needed for pain, in addition to Tylenol 500 mg, 2 tablets (1,000mg) every 4-6 hours as needed for pain, but not to exceed 3 doses daily (3,000mg).? as discussed, your x-ray today does reveal that you have arthritis to the knee. There is no evidence of a blood clot in the leg on imaging today. Please follow-up closely with your primary care provider. They may consider a course of physical therapy for you. Please be sure to rest, apply ice to the area for 10-15 minutes 3-4 times daily, you may use an Hany bandage for compression, and elevate your leg when possible. Prescriptions: No Action albuterol sulfate [ProAir HFA] 90 mcg/actuation HFA aerosol inhaler 2 puff INHALATION Q4-6H PRN (Reason: Wheezing) Qty: 8.5 8RF tizanidine 4 mg tablet 4 mg PO Q8H PRN (Reason: muscle spasticity) Qty: 60 3RF Galzin 50 mg (zinc) capsule 50 mg PO DAILY Qty: 90 2RF Entyvio 300 mg recon soln 300 mg IV Q6W 180 Days Qty: 1 5RF Rx Instructions: give 300 mg IV q 6 weeks cyanocobalamin (vitamin B-12) 1,000 mcg capsule 1,000 mcg PO DAILY 90 Days Qty: 90 2RF amlodipine 10 mg tablet 10 mg PO DAILY Qty: 90 3RF ferrous gluconate 240 mg (27 mg iron) tablet 240 mg PO DAILY Qty: 90 1RF ondansetron 4 mg tablet,disintegrating 4 mg PO Q6H PRN (Reason: nausea and vomiting) Qty: 10 0RF tramadol 50 mg tablet 50 mg PO Q8H PRN (Reason: pain) Qty: 10 0RF levofloxacin 500 mg tablet 500 mg PO DAILY Qty: 9 0RF metronidazole 500 mg tablet 500 mg PO BID Qty: 19 0RF Culturelle 15 billion cell capsule, sprinkle 1 cap PO DAILY Qty: 30 0RF tramadol 50 mg tablet 50 mg PO Q8H PRN (Reason: pain) Qty: 20 0RF aspirin [Adult Low Dose Aspirin] 81 mg tablet,delayed release (DR/EC) 81 mg PO DAILY Referrals: Devin Dos Santos MD [Primary Care Provider] - Print Language: Khmer
[2023-08-03] MEDS: Ibuprofen 400 MG TABLET PO (15:24)
[2023-08-03] MEDS: Acetaminophen 325 MG TABLET 975 MG PO (15:25)
--- NOTE | 2023-08-03 15:25 | PC.NURSE ---
pt medicated rt calf pain, 07/19, pt to have us, will continue to monitor
[2023-08-03 18:04] VITALS: BP 139/61; PULSE 60; RESP 20; TEMP 36.6; O2SAT 98
[2023-08-03 18:17] VITALS: BP 139/61; PULSE 60; RESP 20; TEMP 36.6; O2SAT 98
== END 2023-08-03 18:18 | disposition home or self-care (01) ==
PROVIDERS: Emergency Provider Emergency Medicine Emergency Medical Services; PCP Internal Medicine
DX: M17.11 Unilateral primary osteoarthritis, right knee (principal); M25.561 Pain in right knee; I10 Essential (primary) hypertension
CPT/HCPCS: 73564; 93971; 99283; 99284

== ENCOUNTER 2023-09-27 11:35 | Outpatient (AMB) | payer OTHER, SELFPAY ==
[2023-09-27 11:37] VITALS: BP 124/70; PULSE 75; O2SAT 97; BMI 40.9
--- NOTE | 2023-09-27 11:37 | A.OFFPC_ITS ---
Vital Signs 09/27/23 11:37 Height 5 ft 5 in Weight 246 lb BMI 40.9 BP 124/70 Blood Pressure Location Lt brachial Position Sitting Pulse 75 Pulse Source Pulse Oximeter Pulse Oximetry (%) 97 Oxygen Delivery Method Room Air Intake Visit Reasons: f\u Allergies No Known Allergies Allergy (Verified 09/27/23 11:37) Medication List - Last Reconciled 09/27/23 by Devin Dos Santos MD albuterol sulfate 90 mcg/actuation (ProAir HFA) 2 puffs inhalation Q4-6H PRN amlodipine 10 mg PO DAILY aspirin (Adult Low Dose Aspirin) 81 mg PO DAILY cyanocobalamin (vitamin B-12) 1,000 mcg PO DAILY 90 days ferrous gluconate 240 mg PO DAILY Lactobacillus rhamnosus GG (Culturelle) 1 cap PO DAILY metronidazole 500 mg PO BID ondansetron 4 mg PO Q6H PRN tizanidine 4 mg PO Q8H PRN tramadol 50 mg PO Q8H PRN vedolizumab (Entyvio) 300 mg IV Q6W 6 months zinc acetate (Galzin) 50 mg PO DAILY Tobacco use date assessed: 09/27/23 Dental Screening Dental Screen Date: 09/27/23 Did you have a dental visit in the last 12 months?: Yes Did you have a dental problem in the last 6 months where you did not have access to dental care?: No Was dental information given to patient?: Patient has dentist HPI f\u HPI Details HTN on Rx; doing well; compliant [facility] Medical History Pulmonary nodules Iron (Fe) deficiency anemia PONV (postoperative nausea and vomiting) Colitis History of anxiety Sleep apnea Impaired fasting blood sugar HTN (hypertension) Asthma Abdominal hernia Abdominal pain Morbid obesity Surgical History History of hernia repair (~2020) History of hysterectomy Hx of tonsillectomy Hx of colonoscopy History of hernia surgery Family History (Updated 09/27/23 @ 11:39 by Nora Kramer CMA) Mother Vascular dementia Colon cancer Father No problems noted. 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 1. Little interest or pleasure in doing things: not at all 2. Feeling down, depressed, or hopeless: not at all 3. Trouble falling or staying asleep, or sleeping too much: not at all 4. Feeling tired or having little energy: not at all 5. Poor appetite or overeating: not at all 6. Feeling bad about yourself - or that you are a failure or have let yourself or your family down: not at all 7. Trouble concentrating on things, such as reading the newspaper or watching television: not at all 8. Moving or speaking so slowly that other people could have noticed. Or the opposite - being so fidgety or restless that you have been moving around a lot more than usual: not at all 9. Thoughts that you would be better off or of hurting yourself in some way: not at all Total score: 0 Depression Screening Interpretation: Negative Depression Screening Done: Yes 62174 - PHQ-9 Billing: Yes Source: Developed by Drs. Terence Kenney, Perri Coy, Tavares Stallworth and colleagues, with an educational an from [employer]. Thrive Questionnaire Date Thrive assessed: 09/27/23 I am a: Patient What is your living situation today?: I have a steady place to live Within the past 12 months, did the food you bought not last and you didn't have the money to get more?: Never true Within the past 12 months, did you worry whether your food would run out before you got money to buy more?: Never true Do you have trouble paying for medicines?: No Do you have trouble getting transportation to medical appointments?: No Do you have trouble paying your heating and electricity bill?: No Do you have trouble taking care of your child, family member or friend?: No Do you have trouble with day-to-day activities such as bathing, preparing meals, shopping, managing finances, etc.?: No Are you currently unemployed and looking for a job?: No Are you interested in more education?: No Currently or been in a relationship where the following occur: No concerns reported THRIVE Score: 0 AUDIT C Alcohol Use Questionnaire (AUDIT-C) 1. How often do you have a drink containing alcohol?: Never 3. How often do you have six or more drinks on one occasion?: Never Total Score: 0 Score Reviewed/Action Taken: Yes TALISHA-7 AMB Questionnaire TALISHA-7 Date TALISHA - 7 assessed: 09/27/23 Feeling nervous, anxious, or on edge: 0 = Not at all Not being able to stop or control worryin = Not at all Worrying too much about different things: 0 = Not at all Trouble relaxin = Not at all Being so restless that it is hard to sit still: 0 = Not at all Becoming easily annoyed or irritable: 0 = Not at all Feeling afraid as if something awful might happen: 0 = Not at all Total TALISHA-7 score (0-4 normal; 5-9 mild; 10-14 moderate; 15-21 severe): 0 Source: Developed by Drs. Terence Kenney, Perri Coy, Tavares Stallworth and colleagues, with an educational an from [employer]. TALISHA-7 Assessment Billing TALISHA-7 Assessment Tool: TALISHA-7 Assessment 48423 Review of Systems Const Denies chills, Denies headache(s) and Denies weight loss ENT Denies headache(s) Card Denies chest pain, Denies syncope, Denies irregular heart rhythm and Denies dyspnea Resp Denies chest congestion, Denies cough and Denies dyspnea GI Denies abdominal pain, Denies change in stool character, Denies nausea and Denies vomiting Musc Denies deformity and Denies joint swelling Neuro Denies syncope and Denies headache(s) Physical exam (Primary Care) Vital Signs: Last Vital Signs Pulse 75 09/27/23 11:37 BP 124/70 09/27/23 11:37 Pulse Ox 97 09/27/23 11:37 Oxygen Delivery Method Room Air 09/27/23 11:37 BMI result Body Mass Index 40.9 Tobacco/Smoking Status: Tobacco use Status Tobacco use date assessed 09/27/23 09/27/23 11:43 Patient Tobacco Use Status Former Tobacco user 09/27/23 11:43 Tobacco use type Cigarette 09/27/23 11:43 e-Cigarette/Vaping Use Never Used 09/27/23 11:43 PHQ-9: PHQ-9 Score PHQ-9: Total score 0 09/27/23 11:43 Depression Screening Interpretation: Negative Thrive Assessment: Date of Thrive Assessment Date Thrive assessed 09/27/23 09/27/23 11:43 Currently or been in a relationship where the following occur: No concerns reported Const General: cooperative, comfortable, no acute distress and alert Neck Neck: Yes no lymphadenopathy Thyroid: Thyroid normal Resp Effort & Inspection: normal respiratory effort Auscultation: clear to auscultation bilaterally Percussion: percussion normal Cardio Jugular venous distension: no JVD Palpation: normal PMI Rate: regular rate Rhythm: regular rhythm Heart sounds: S1 normal heart sound present and S2 normal heart sound present GI Inspection: Yes normal to inspection Palpation (GI): No hepatosplenomegaly present Skin General skin exam: no rashes or lesions noted Extrem General: Yes no clubbing, cyanosis or edema Assessment and Plan Assessment & Plan (1) Hypertension: Code(s): I10 - Essential (primary) hypertension Plan: stable; same rx Orders: Referrals Orthopedics Referral M25.569 - Pain in unspecified knee Coding Level of Care Code Est Pt Level 3 (76743) Diagnoses Hypertension I10 Additional Codes TALISHA-7 Assessment Billing - TALISHA-7 Assessment Tool: TALISHA-7 Assessment [id number] ([id number])
== END 2023-09-27 12:06 | disposition home or self-care (01) ==
PROVIDERS: PCP Internal Medicine; Visit Provider Internal Medicine
DX: I10 Essential (primary) hypertension (principal)
CPT/HCPCS: 99213

== ENCOUNTER 2023-10-24 08:30 | Outpatient (AMB) | payer OTHER, SELFPAY ==
--- NOTE | 2023-10-24 08:31 | MHC.OFFVIS ---
Intake Visit Reasons: New Prob- Rudy knee pain Intake Note: Laura is a 57 year old female who presents with complaints of progressively worsening bilateral knee pains. The patient describes her pains as sharp in nature. Most of the pain is along the medial aspects of her knees. She has not had a cortisone injection. She has tried Tylenol and anti-inflammatory medicines which gave her minimal relief. She has also done physical therapy exercises which aggravated her pain. She states that her left knee will lock at times. She denies any mechanical symptoms in her right knee. Allergies No Known Allergies Allergy (Verified 10/24/23 08:31) Medication List - Last Reconciled 10/24/23 by Stanford Dueñas MD albuterol sulfate 90 mcg/actuation (ProAir HFA) 2 puffs inhalation Q4-6H PRN amlodipine 10 mg PO DAILY aspirin (Adult Low Dose Aspirin) 81 mg PO DAILY cyanocobalamin (vitamin B-12) 1,000 mcg PO DAILY 90 days ferrous gluconate 240 mg PO DAILY Lactobacillus rhamnosus GG (Culturelle) 1 cap PO DAILY ondansetron 4 mg PO Q6H PRN tizanidine 4 mg PO Q8H PRN vedolizumab (Entyvio) 300 mg IV Q6W 6 months zinc acetate (Galzin) 50 mg PO DAILY PFSH Medical History Pulmonary nodules Iron (Fe) deficiency anemia PONV (postoperative nausea and vomiting) Colitis History of anxiety Sleep apnea Impaired fasting blood sugar HTN (hypertension) Asthma Abdominal hernia Abdominal pain Morbid obesity Surgical History History of hernia repair (~2020) History of hysterectomy Hx of tonsillectomy Hx of colonoscopy History of hernia surgery Family History (Updated 09/27/23 @ 11:39 by Nora Kramer CMA) Mother Vascular dementia Colon cancer Father No problems noted. 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 Cognitive needs: No Hearing needs: No Vision needs: No Physical Exam Const Other: Well-nourished well-developed very friendly female awake alert and oriented x3 in no acute distress Extrem Other: Bilateral lower extremity examination shows good capillary refill, no skin lesions noted, normal sensation light touch Bilateral knee examination shows minimal effusions, palpable crepitus with range of motion, pain with range of motion, positive Dinorah's test on her left knee, no instability Office Procedures Joint Injection/Aspiration Joint Injection/Aspiration Primary Site: left knee Prep: site was prepped using aseptic technique Injected: 40 mg of, DepoMedrol and 1% plain lidocaine Procedure: The patient tolerated the procedure well Coding 15460 - Large joint Procedure code (CPT) selection complete Joint Injection/Aspiration Joint Injection/Aspiration Primary Site: right knee Prep: site was prepped using aseptic technique Injected: 40 mg of, DepoMedrol and 1% plain lidocaine Procedure: The patient tolerated the procedure well Coding 04942 - Large joint Procedure code (CPT) selection complete Results Reviewed Results Reviewed: X-rays of the patient's bilateral knee show moderate joint space narrowing, subchondral sclerosis, no acute bony abnormalities Assessment & Plan Assessment & Plan (1) Left knee pain: Code(s): M25.562 - Pain in left knee Category: Medical (2) Right knee pain: Code(s): M25.561 - Pain in right knee Category: Medical Plan Ms. Branham presents with bilateral knee pains due to degenerative joint disease. I had a lengthy discussion with the patient regarding the treatment options. The risks and benefits of bilateral knee cortisone injections were discussed at length with the patient. The patient wished to proceed. She tolerated the injections well. She will continue with her activity modifications. The patient also has intermittent right hip pain. I will see her back over the next few weeks for further clinical and radiographic examination of her right hip. Feel free to call me at any time should questions regarding her orthopedic management arise. I spent 20 minutes in reviewing the patient's records and imaging studies, seeing the patient and documenting in the medical record. Orders: Orders AMB Joint Injection/Aspiration Today M25.562 - Pain in left knee AMB Joint Injection/Aspiration Today M25.561 - Pain in right knee Coding Level of Care Code New Pt Level 3 (41290) Diagnoses Left knee pain M25.562 Right knee pain M25.561 CPT Codes Coding - 88055 Large joint: 52960 - Large joint ([id number]) Coding - 56168 Large joint: 60774 - Large joint ([id number])
== END 2023-10-24 09:05 | disposition home or self-care (01) ==
PROVIDERS: PCP Internal Medicine; Visit Provider Orthopaedic Surgery
DX: M17.0 Bilateral primary osteoarthritis of knee (principal)
CPT/HCPCS: 20610; 99203

== ENCOUNTER → 2023-10-24 08:30 | Outpatient (BNVA) | payer OTHER, SELFPAY | PROVIDERS: PCP Internal Medicine; Visit Provider Orthopaedic Surgery | DX: M17.0 Bilateral primary osteoarthritis of knee (principal) | CPT/HCPCS: 20610; 99202; J1010 ==

== ENCOUNTER 2023-10-26 10:53 | Outpatient (REF) | payer OTHER, SELFPAY ==
[2023-10-26 12:00] LABS: MANUAL DIFF FLAG NO
[2023-10-26 12:32] LABS: Basophils Percent Auto 0.4 % (0-2); Eosinophils Absolute Auto 0.2 X10*3/uL (0.0-0.4); Hematocrit 42.9 % (37.0-47.0); Hemoglobin 14.3 g/dl (12.0-16.0); Imm Gran Abs Auto 0.02 X10*3/uL (0.00-0.03); Imm Gran Pct Auto 0.3 % (0.0-0.4); Lymphocytes Absolute Auto 1.5 X10*3/uL (1.2-4.9); Lymphocytes Percent Auto 22.9 % (20-40); Mean Corpuscular HGB Conc 33.3 g/dl (31.0-35.0); Mean Corpuscular Hemoglobin 29.7 pg (27.0-33.0); Monocytes Absolute Auto 0.5 X10*3/uL (0.1-1.2); Neutrophils Absolute Auto 4.5 x10*3/uL (2.0-8.3); Neutrophils Percent Auto 66.4 % (45-73); Platelet Count 198 X10*3/uL (160-400); Red Blood Count 4.82 X10*6/uL (4.20-5.50); Red Cell Distribution Width 13.1 % (11.0-16.0); White Blood Count 6.7 X10*3/uL (4.8-10.8)
[2023-10-26 13:12] LABS: Alanine Aminotransferase 15 U/L (0-31); Albumin Level 4.3 g/dL (3.5-5.0); Alkaline Phosphatase 116 U/L (39-117); Anion Gap 11 (12-20); Aspartate Amino Transferase 16 U/L (5-31); Bilirubin Total 0.6 mg/dL (0.0-1.0); Blood Urea Nitrogen 11 mg/dL (9-16); C Reactive Protein 0.27 mg/dL (< or = 0.50); Carbon Dioxide 32 mmol/L (22-29); Chloride 105 mmol/L (96-108); Estimated Glomerular Filt Rate > 60; Glucose Random 93 mg/dL (60-115); Potassium 3.7 mmol/L (3.3-5.1); Sodium 144 mmol/L (135-145); Total Protein 7.2 g/dL (6.5-8.0)
[2023-10-26 13:30] LABS: Ferritin 31 ng/mL (10-250)
[2023-10-26 13:42] LABS: Folate 6.1 ng/mL (> or = 4.0); Vitamin B12 1127 pg/mL (200-900)
[2023-10-31 02:13] LABS: Zinc 126 mcg/dL (60-130)
[2023-11-01 08:39] LABS: Vitamin A 35 mcg/dL (38-98)
[2023-11-01 14:48] LABS: Vitamin C 0.3 mg/dL (0.3-2.7)
[2023-11-05 06:24] LABS: Vitamin B1 8 nmol/L (8-30)
== END 2023-10-26 10:54 | disposition home or self-care (01) ==
LOC: HO.LAB 10:53
PROVIDERS: PCP Internal Medicine; Visit Provider Internal Medicine Gastroenterology
DX: K52.9 Noninfective gastroenteritis and colitis, unspecified (principal); K75.81 Nonalcoholic steatohepatitis (NASH); K62.5 Hemorrhage of anus and rectum; E46 Unspecified protein-calorie malnutrition; K51.50 Left sided colitis without complications
CPT/HCPCS: 36415; 80053; 82180; 82607; 82728; 82746; 84425; 84590; 84630; 85025; 86140; 99212

== ENCOUNTER 2023-10-26 10:53 | Outpatient (AMB) | payer OTHER, SELFPAY ==
[2023-10-26 11:03] VITALS: BP 140/80; PULSE 76; O2SAT 97; BMI 41.5
--- NOTE | 2023-10-26 11:03 | MHC.OFFVIS ---
Vital Signs 10/26/23 11:03 Height 5 ft 5 in Weight 249 lb 9.012 oz BMI 41.5 BP 140/80 H Blood Pressure Location Rt brachial Position Sitting Pulse 76 Pulse Source Pulse Oximeter Pulse Oximetry (%) 97 Oxygen Delivery Method Room Air Intake Visit Reasons: 6 month follow up Intake Note: Patient presents to the office today for a 6 month follow up. Patient cc: Pt states she is feeling the best she has with her GI concern. 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 Accompanied by: Self / Same As Patient Allergies No Known Allergies Allergy (Verified 10/26/23 11:06) HPI HPI 6 month follow up: Details: 57 yr old f here for f/u RECAP: she had been having abn bowel habits colonoscopy 08/30 --bx with chronic moderate active proctitis Stool for C diff was sent and was negative she hernia repair with Dr Stinson she was initially tried on mesalamine but this was not effective, so switched to entyvio 12/2021 Sigmoidoscopy: 08/01--moderate proctitis, on entyvio q6 wk CT 03/03-- uncomplicated diverticulitis INTERIM: she is happy with the entyvio q6 weeks stress has been going up, issues with daughter and son, joints etc no diarrhea no abdominal pain still taking iron , b12 supps no blood in stool EXAM: GENERAL: The patient is well developed and nontoxic. VITAL SIGNS:see workflow HEENT: Nonicteric sclerae, PERRLA, EOMI. Oropharynx clear. Moist mucous membranes. Conjunctivae appear well perfused. No thyroid mass. CHEST: Chest wall is nontender. HEART: Regular rate and rhythm without murmurs. LUNGS: Clear to auscultation bilaterally. ABDOMEN: Soft, positive bowel sounds, nontender, no organomegaly.no flank tenderness--scar noted mid line abdomen SKIN: No rash, no excessive bruising, petechiae, or purpura. NEUROLOGIC: Cranial nerves II-XII intact without motor/sensory deficit. 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 2/ iron def related to above, HGb has been good PLAN: 1/ recheck fecal lactoferrin, and labs today 2/ cont with entyvio--seems to be in clinical remission PFSH Medical History Pulmonary nodules Iron (Fe) deficiency anemia PONV (postoperative nausea and vomiting) Colitis History of anxiety Sleep apnea Impaired fasting blood sugar HTN (hypertension) Asthma Abdominal hernia Abdominal pain Morbid obesity Surgical History History of hernia repair (~2020) History of hysterectomy Hx of tonsillectomy Hx of colonoscopy History of hernia surgery Family History (Updated 09/27/23 @ 11:39 by Nora Kramer [facility]) Mother Vascular dementia Colon cancer Father No problems noted. 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 Panel Today E46 - Unspecified protein-calorie malnutrition, K62.5 - Hemorrhage of anus and rectum, K75.81 - Nonalcoholic steatohepatitis ([place]) C Reactive Protein Today E46 - Unspecified protein-calorie malnutrition, K62.5 - Hemorrhage of anus and rectum Lactoferrin, Fecal, Quant. Today K51.50 - Left sided colitis without complications Complete Blood Count Auto Diff Today E46 - Unspecified protein-calorie malnutrition, K62.5 - Hemorrhage of anus and rectum Ferritin Today E46 - Unspecified protein-calorie malnutrition, K62.5 - Hemorrhage of anus and rectum Vitamin C Today E46 - Unspecified protein-calorie malnutrition, K62.5 - Hemorrhage of anus and rectum Vitamin B12 and Folate Today E46 - Unspecified protein-calorie malnutrition, K62.5 - Hemorrhage of anus and rectum Vitamin A Today E46 - Unspecified protein-calorie malnutrition, K62.5 - Hemorrhage of anus and rectum Vitamin B1 Today E46 - Unspecified protein-calorie malnutrition, K62.5 - Hemorrhage of anus and rectum Zinc Today E46 - Unspecified protein-calorie malnutrition, K62.5 - Hemorrhage of anus and rectum Coding Level of Care Code Est Pt Level 3 (58131) Diagnoses Rectal Hemorrhage K62.5
== END 2023-10-26 11:37 | disposition home or self-care (01) ==
PROVIDERS: PCP Internal Medicine; Visit Provider Internal Medicine Gastroenterology
DX: K62.5 Hemorrhage of anus and rectum (principal)
CPT/HCPCS: 99213

== ENCOUNTER 2023-10-29 07:42 | Outpatient (REF) | payer OTHER, SELFPAY ==
[2023-11-08 00:18] LABS: Lactoferrin, Fecal, Quant. 29.75 mcg/mL (<7.25)
== END 2023-10-29 07:43 | disposition home or self-care (01) ==
LOC: HO.LNP 07:42
PROVIDERS: Visit Provider Internal Medicine Gastroenterology
DX: K51.50 Left sided colitis without complications (principal)
CPT/HCPCS: 83631

== ENCOUNTER 2023-11-13 14:18 | Outpatient (AMB) | payer OTHER, SELFPAY ==
--- NOTE | 2023-11-13 14:33 | A.OFFVIS_ITS ---
Vital Signs 11/13/23 14:39 Height 5 ft 5 in Weight 249 lb BMI 41.4 Intake Visit Reasons: New prob-Right hip pain Intake Note: Laura a 57 year old female who presents with complaints of progressively worsening right hip pain. Most of the pain is located within her right groin. She denies any numbness or tingling in either of her lower extremities. The patient's symptoms have gotten worse over the last few months. She has done stretching exercises which gave her minimal relief. She has also tried Tylenol and ibuprofen which gave her mild relief. She does not recall any specific traumatic event preceding the onset of her pain. Allergies No Known Allergies Allergy (Verified 11/13/23 14:35) Medication List - Last Reconciled 11/13/23 by Stanford Dueñas MD albuterol sulfate 90 mcg/actuation (ProAir HFA) 2 puffs inhalation Q4-6H PRN amlodipine 10 mg PO DAILY aspirin (Adult Low Dose Aspirin) 81 mg PO DAILY cyanocobalamin (vitamin B-12) 1,000 mcg PO DAILY 90 days ferrous gluconate 240 mg PO DAILY Lactobacillus rhamnosus GG (Culturelle) 1 cap PO DAILY methylprednisolone (Medrol (Carlos)) PO PER PKG DIR vedolizumab (Entyvio) 300 mg IV Q6W 6 months zinc acetate (Galzin) 50 mg PO DAILY PFSH Medical History Pulmonary nodules Iron (Fe) deficiency anemia PONV (postoperative nausea and vomiting) Colitis History of anxiety Sleep apnea Impaired fasting blood sugar HTN (hypertension) Asthma Abdominal hernia Abdominal pain Morbid obesity Surgical History History of hernia repair (~2020) History of hysterectomy Hx of tonsillectomy Hx of colonoscopy History of hernia surgery Family History (Updated 09/27/23 @ 11:39 by Nora Kramer [facility]) Mother Vascular dementia Colon cancer Father No problems noted. 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 Cognitive needs: No Hearing needs: No Vision needs: No Physical Exam Vital Signs: BMI result Body Mass Index 41.4 Const Other: Well-nourished well-developed very friendly female awake alert and oriented x3 in no acute distress Extrem Other: Bilateral lower extremity examination shows good capillary refill, no skin lesions noted, normal sensation light touch Right hip examination shows slightly decreased range of motion when compared to her left hip, mild tenderness over her bursa, increased pain with forward flexion and internal rotation Results Reviewed Results Reviewed: X-rays of the patient's right hip were ordered but not yet completed Assessment & Plan Assessment & Plan (1) Right hip pain: Code(s): M25.551 - Pain in right hip Category: Medical Plan Ms. Branham presents with right hip pain most likely due to hip flexor tendinitis versus possible degenerative joint disease or labral tearing. Did give the patient a prescription for a Medrol Dosepak. I will also send her to the radiology department for an x-ray. I will contact her with the x-ray results when available. She will follow up with me on an as-needed basis should her symptoms not plateau at an unacceptable level over the next few weeks. Feel free to call me at any time should questions regarding her orthopedic management arise. I spent 22 minutes in reviewing the patient's records and imaging studies, seeing the patient and documenting in the medical record. Orders: Orders XR hip RT min 2V Today M25.551 - Pain in right hip XR hip RT min 2V Today M25.551 - Pain in right hip Medications: New methylprednisolone (Medrol (Carlos)) PO PER PKG DIR 21 ea 0RF Coding Level of Care Code Est Pt Level 3 (56196) Complex EM visit Add On G2211 Diagnoses Right hip pain M25.551
[2023-11-13 14:39] VITALS: BMI 41.4
== END 2023-11-13 14:54 | disposition home or self-care (01) ==
PROVIDERS: PCP Internal Medicine; Visit Provider Orthopaedic Surgery
DX: M25.551 Pain in right hip (principal)
CPT/HCPCS: 99214; G2211

== ENCOUNTER 2023-11-13 14:55 | Outpatient (REF) | payer OTHER, SELFPAY ==
--- NOTE | ~2023-11-13 | XR_ITS ---
EXAMINATION: XR HIP, RIGHT CLINICAL INFORMATION: Right hip pain. COMPARISON: None available. TECHNIQUE: Two views of the right hip. FINDINGS: No acute fracture or dislocation. Moderate right hip joint space narrowing with subchondral sclerosis, subchondral cystic change, and marginal osteophytes, slightly progressed when compared to the prior CT. Mild left hip joint space narrowing with small marginal osteophytes. No concerning lytic or blastic osseous lesion. No evidence of femoral head avascular necrosis. No abnormal soft tissue calcification. XR/XR hip RT min 2V IMPRESSION: Moderate right and mild left hip osteoarthritis, slightly progressed when compared to the prior CT. Electronically signed by: Jarrod Giraldo MD 11/19/2023 09:29 PM EDT
== END 2023-11-13 14:56 | disposition home or self-care (01) ==
LOC: HO.HOSX 14:55
PROVIDERS: PCP Internal Medicine; Visit Provider Orthopaedic Surgery
DX: M25.551 Pain in right hip (principal)
CPT/HCPCS: 73502; 99212

== ENCOUNTER 2024-02-06 13:19 | Outpatient (AMB) | payer OTHER, SELFPAY ==
--- NOTE | 2024-02-06 13:24 | MHC.OFFVIS ---
Vital Signs 02/06/24 13:25 Height 5 ft 5 in Weight 243 lb BMI 40.4 Intake Visit Reasons: Bilateral knee pain Intake Note: Laura is a 58 year old female who presents with complaints of progressively worsening bilateral knee pains as well as left knee giving way. The patient describes her pains as sharp in nature. Her pains have gotten worse over the last year in spite of continued non operative treatments. She has failed the last 3 months of conservative treatment which has consisted of physical therapy exercises, Tylenol, anti-inflammatory medicines and topical creams. She has had cortisone injections in the past. The most recent set of injections gave her minimal relief. The patient states that her bilateral knee pains are interfering with her activities of daily living and her ability to sleep well through the night. She states that her left knee will give out several times per day. She wishes to hold off on surgery if at all possible. Allergies No Known Allergies Allergy (Verified 02/06/24 13:26) Medication List - Last Reconciled 02/08/24 by Stanford Dueñas MD albuterol sulfate 90 mcg/actuation (ProAir HFA) 2 puffs inhalation Q4-6H PRN amlodipine 10 mg PO DAILY aspirin (Adult Low Dose Aspirin) 81 mg PO DAILY cyanocobalamin (vitamin B-12) 1,000 mcg PO DAILY 90 days ferrous gluconate 240 mg PO DAILY Lactobacillus rhamnosus GG (Culturelle) 1 cap PO DAILY vedolizumab (Entyvio) 300 mg IV Q6W 6 months zinc acetate (Galzin) 50 mg PO DAILY [facility] Medical History Pulmonary nodules Iron (Fe) deficiency anemia PONV (postoperative nausea and vomiting) Colitis History of anxiety Sleep apnea Impaired fasting blood sugar HTN (hypertension) Asthma Abdominal hernia Abdominal pain Morbid obesity Surgical History History of hernia repair (~2020) History of hysterectomy Hx of tonsillectomy Hx of colonoscopy History of hernia surgery Family History (Updated 09/27/23 @ 11:39 by Nora Kramer CMA) Mother Vascular dementia Colon cancer Father No problems noted. 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 Cognitive needs: No Hearing needs: No Vision needs: No Physical Exam Vital Signs: BMI result Body Mass Index 40.4 Const Other: Well-nourished well-developed very friendly female awake alert and oriented x3 in no acute distress Extrem Other: Bilateral lower extremity examination shows good capillary refill, no skin lesions noted, normal sensation light touch Bilateral knee examination shows minimal effusions, palpable crepitus with range of motion, pain with range of motion, range of motion from -3 degrees to 115 degrees Results Reviewed Results Reviewed: Standing full weight-bearing x-rays of the patient's bilateral knees taken previously show joint space narrowing, subchondral sclerosis, no acute bony abnormalities Assessment & Plan Assessment & Plan (1) Pain in both knees: Code(s): M25.561 - Pain in right knee; M25.562 - Pain in left knee (2) Osteoarthritis of left knee: Code(s): M17.12 - Unilateral primary osteoarthritis, left knee Category: Medical (3) Osteoarthritis of right knee: Code(s): M17.11 - Unilateral primary osteoarthritis, right knee Category: Medical Plan Ms. Branham presents with bilateral knee pains as well as left knee symptoms of instability due to degenerative joint disease. I had a lengthy discussion with the patient regarding the treatment options. She wishes to hold off on surgery for as long as possible. I agree with this plan. I will see whether or not the patient's insurance company will cover a viscosupplementation injection for both of her knees. I will see her back once the injections are available. I also had her fitted for a left knee brace because of her symptoms of instability. I do feel that the brace is a medical necessity to help prevent future falls. Feel free to call me at any time should questions regarding her orthopedic management arise. I spent 22 minutes in reviewing the patient's records and imaging studies, seeing the patient and documenting in the medical record. Coding Level of Care Code Est Pt Level 3 (45541) Complex EM visit Add On G2211 Diagnoses Pain in both knees M25.561; M25.562 Osteoarthritis of left knee M17.12 Osteoarthritis of right knee M17.11
[2024-02-06 13:25] VITALS: BMI 40.4
== END 2024-02-06 13:45 | disposition home or self-care (01) ==
PROVIDERS: PCP Internal Medicine; Visit Provider Orthopaedic Surgery
DX: M17.0 Bilateral primary osteoarthritis of knee (principal)
CPT/HCPCS: 99213; G2211

== ENCOUNTER → 2024-02-06 13:19 | Outpatient (BNVA) | payer OTHER, SELFPAY | PROVIDERS: PCP Internal Medicine; Visit Provider Orthopaedic Surgery | DX: M17.0 Bilateral primary osteoarthritis of knee (principal) | CPT/HCPCS: 99212 ==

== ENCOUNTER 2024-03-19 13:48 | Outpatient (AMB) | payer OTHER, SELFPAY ==
--- NOTE | 2024-03-19 14:10 | MHC.OFFVIS ---
Intake Visit Reasons: Inj-Bilateral Knee Euflexxa #1 Intake Note: Laura is a 58 year old female who presents with complaints of progressively worsening bilateral knee pains. She describes her pains as sharp in nature. Her pains have gotten worse over the last year in spite of continued non operative treatments. She has had cortisone injections which gave her minimal relief. She has also tried Tylenol and anti-inflammatory medicines which gave her only mild relief. She wishes to hold off on surgery if at all possible. Allergies No Known Allergies Allergy (Verified 03/19/24 14:16) Medication List - Last Reconciled 03/19/24 by Stanford Dueñas MD albuterol sulfate 90 mcg/actuation (ProAir HFA) 2 puffs inhalation Q4-6H PRN amlodipine 10 mg PO DAILY aspirin (Adult Low Dose Aspirin) 81 mg PO DAILY cyanocobalamin (vitamin B-12) 1,000 mcg PO DAILY ferrous gluconate 240 mg PO DAILY Lactobacillus rhamnosus GG (Culturelle) 1 cap PO DAILY vedolizumab (Entyvio) 300 mg IV Q6W 6 months zinc acetate (Galzin) 50 mg PO DAILY PFSH Medical History Pulmonary nodules Iron (Fe) deficiency anemia PONV (postoperative nausea and vomiting) Colitis History of anxiety Sleep apnea Impaired fasting blood sugar HTN (hypertension) Asthma Abdominal hernia Abdominal pain Morbid obesity Surgical History History of hernia repair (~2020) History of hysterectomy Hx of tonsillectomy Hx of colonoscopy History of hernia surgery Family History (Updated 09/27/23 @ 11:39 by Nora Kramer, [facility]) Mother Vascular dementia Colon cancer Father No problems noted. 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 Cognitive needs: No Hearing needs: No Vision needs: No Physical Exam Const Other: Well-nourished well-developed very friendly female awake alert and oriented x3 in no acute distress Extrem Other: Bilateral lower extremity examination shows good capillary refill, no skin lesions noted, normal sensation light touch Bilateral knee examination shows minimal effusions, palpable crepitus with range motion, pain with range motion, no instability Office Procedures AMB Joint Injection/Aspiration Joint Injection/Aspiration Primary Site: right knee Prep: site was prepped using aseptic technique Injected: 20 mg of (Euflexxa viscosupplementation) and 1% plain lidocaine Procedure: The patient tolerated the procedure well Coding 14223 - Large joint Procedure code (CPT) selection complete AMB Joint Injection/Aspiration Joint Injection/Aspiration Primary Site: left knee Prep: site was prepped using aseptic technique Injected: 20 mg of (Euflexxa viscosupplementation) and 1% plain lidocaine Procedure: The patient tolerated the procedure well Coding 71770 - Large joint Procedure code (CPT) selection complete Results Reviewed Results Reviewed: X-rays of the patient's bilateral knees taken previously show joint space narrowing, subchondral sclerosis, no acute bony abnormalities Assessment & Plan Assessment & Plan (1) Osteoarthritis of left knee: Code(s): M17.12 - Unilateral primary osteoarthritis, left knee Category: Medical (2) Osteoarthritis of right knee: Code(s): M17.11 - Unilateral primary osteoarthritis, right knee Category: Medical Plan Ms. Branham presents with bilateral knee pains due to osteoarthritis. The risks and benefits of bilateral knee Euflexxa viscosupplementation injections were discussed at length with the patient. The patient wishes to proceed. She tolerated the injections well. She will continue with her home exercise program. She will follow up next week as scheduled. Feel free to call me at any time should questions regarding her orthopedic management arise. I spent 22 minutes in reviewing the patient's records and imaging studies, seeing the patient and documenting in the medical record. Orders: Orders AMB Joint Injection/Aspiration Today M17.12 - Unilateral primary osteoarthritis, left knee AMB Joint Injection/Aspiration Today M17.11 - Unilateral primary osteoarthritis, right knee XR hip RT min 2V w/wo pel 03/26/24 M25.551 - Pain in right hip Coding Level of Care Code Est Pt Level 3 (91931) Complex EM visit Add On G2211 Diagnoses Osteoarthritis of left knee M17.12 Osteoarthritis of right knee M17.11 CPT Codes Coding - 33596 Large joint: 65483 - Large joint ([id number]) Coding - 98145 Large joint: 88335 - Large joint ([id number])
== END 2024-03-19 14:41 | disposition home or self-care (01) ==
PROVIDERS: PCP Internal Medicine; Visit Provider Orthopaedic Surgery
DX: M17.0 Bilateral primary osteoarthritis of knee (principal)
CPT/HCPCS: 20610; 99213

== ENCOUNTER → 2024-03-19 13:48 | Outpatient (BNVA) | payer OTHER, SELFPAY | PROVIDERS: PCP Internal Medicine; Visit Provider Orthopaedic Surgery | DX: M17.0 Bilateral primary osteoarthritis of knee (principal) | CPT/HCPCS: 20610; 99212; J2003; J7323 ==

== ENCOUNTER 2024-03-26 13:07 | Outpatient (REF) | payer OTHER, SELFPAY ==
--- NOTE | ~2024-03-26 | XR_ITS ---
EXAMINATION: XR HIP, RIGHT CLINICAL INFORMATION: M25.551 - Pain in right hip COMPARISON: None available. TECHNIQUE: Two views of the right hip. AP pelvis one view FINDINGS: There is minimal reduction in the right hip joint space. The left hip joint space is normal. SI joints are normal. No fracture or lytic process seen. The soft tissues of the pelvis are normal. AP and frog-leg views right hip reveals slight loss of medial right hip joint space with slight irregular appearing right femoral head articular surface . Inferior right hip joint space periarticular spurring seen. There are no loose bodies or soft tissue swelling or calcification. XR/XR hip RT min 2V IMPRESSION: Mild right hip degenerative arthritic changes. Electronically signed by: Christiano Parikh MD 03/28/2024 07:22 AM [facility]
== END 2024-03-26 13:08 | disposition home or self-care (01) ==
LOC: HO.HOSX 13:07
PROVIDERS: Visit Provider Orthopaedic Surgery
DX: M25.551 Pain in right hip (principal); M17.0 Bilateral primary osteoarthritis of knee
CPT/HCPCS: 20610; 73502; 99212; J2003; J7323

== ENCOUNTER 2024-03-26 13:44 | Outpatient (AMB) | payer OTHER, SELFPAY ==
--- NOTE | 2024-03-26 13:50 | MHC.OFFVIS ---
Intake Visit Reasons: Inj-Bilateral Knee Euflexxa #2, Right hip pain Intake Note: Laura is a 58 year old female who presents with complaints of progressively worsening right hip pain and bilateral knee pains. She describes her right hip pain as sharp and severe in nature. Most of her pain is located within her right groin. The patient states that her right hip pain has gotten worse over the last year. She has tried physical therapy exercises which aggravated her pain. She has also tried Tylenol and anti-inflammatory medicines which gave her minimal relief. Allergies No Known Allergies Allergy (Verified 03/19/24 14:16) Medication List - Last Reconciled 03/26/24 by Stanford Dueñas MD albuterol sulfate 90 mcg/actuation (ProAir HFA) 2 puffs inhalation Q4-6H PRN amlodipine 10 mg PO DAILY aspirin (Adult Low Dose Aspirin) 81 mg PO DAILY cyanocobalamin (vitamin B-12) 1,000 mcg PO DAILY ferrous gluconate 240 mg PO DAILY Lactobacillus rhamnosus GG (Culturelle) 1 cap PO DAILY vedolizumab (Entyvio) 300 mg IV Q6W 6 months zinc acetate (Galzin) 50 mg PO DAILY PFSH Medical History Pulmonary nodules Iron (Fe) deficiency anemia PONV (postoperative nausea and vomiting) Colitis History of anxiety Sleep apnea Impaired fasting blood sugar HTN (hypertension) Asthma Abdominal hernia Abdominal pain Morbid obesity Surgical History History of hernia repair (~2020) History of hysterectomy Hx of tonsillectomy Hx of colonoscopy History of hernia surgery Family History (Updated 09/27/23 @ 11:39 by Nora Kramer [facility]) Mother Vascular dementia Colon cancer Father No problems noted. 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 Cognitive needs: No Hearing needs: No Vision needs: No Physical Exam Const Other: Well-nourished well-developed very friendly female awake alert and oriented x3 in no acute distress Extrem Other: Right hip examination shows decreased range of motion when compared to her left hip, pain with range of motion, increased pain with forward flexion and internal rotation, no tenderness over her bursa Bilateral knee examination shows minimal effusions, palpable crepitus with range of motion, pain with range of motion, no instability Office Procedures AMB Joint Injection/Aspiration Joint Injection/Aspiration Primary Site: left knee Prep: site was prepped using aseptic technique Injected: 20 mg of (Euflexxa viscosupplementation) and 1% plain lidocaine Procedure: The patient tolerated the procedure well Coding - Large joint Procedure code (CPT) selection complete AMB Joint Injection/Aspiration Joint Injection/Aspiration Primary Site: right knee Prep: site was prepped using aseptic technique Injected: 20 mg of (Euflexxa viscosupplementation) and 1% plain lidocaine Coding - Large joint Procedure code (CPT) selection complete Results Reviewed Results Reviewed: X-rays of the patient's right hip show mild diffuse joint space narrowing, no acute bony abnormalities Assessment & Plan Assessment & Plan (1) Right hip pain: Code(s): M25.551 - Pain in right hip Category: Medical (2) Osteoarthritis of right knee: Code(s): M17.11 - Unilateral primary osteoarthritis, right knee Category: Medical (3) Osteoarthritis of left knee: Code(s): M17.12 - Unilateral primary osteoarthritis, left knee Category: Medical Plan Ms. 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 Thus, I will send the patient for an MRI of her right hip for further evaluation. She also has bilateral knee pains due to osteoarthritis. The risks and benefits of a 2nd set of Euflexxa injections were discussed at length with the patient. The patient wished to proceed. She tolerated the injections well. She will follow up next week as scheduled. Feel free to call me at any time should questions regarding her orthopedic management arise. I spent 22 minutes in reviewing the patient's records and imaging studies, seeing the patient and documenting in the medical record. Orders: Orders AMB Joint Injection/Aspiration Today M17.11 - Unilateral primary osteoarthritis, right knee MR hip RT wo con Today M25.551 - Pain in right hip AMB Joint Injection/Aspiration Today M17.12 - Unilateral primary osteoarthritis, left knee Coding Level of Care Code Est Pt Level 3 (36510) Complex EM visit Add On G2211 Diagnoses Right hip pain M25.551 Osteoarthritis of right knee M17.11 Osteoarthritis of left knee M17.12 CPT Codes Coding - 59220 Large joint: 92226 - Large joint ([id number]) Coding - 72128 Large joint: 79949 - Large joint ([id number])
== END 2024-03-26 14:36 | disposition home or self-care (01) ==
PROVIDERS: PCP Internal Medicine; Visit Provider Orthopaedic Surgery
DX: M25.551 Pain in right hip (principal); M17.0 Bilateral primary osteoarthritis of knee
CPT/HCPCS: 20610; 99213; G2211

== ENCOUNTER 2024-04-02 13:51 | Outpatient (AMB) | payer OTHER, SELFPAY ==
--- NOTE | 2024-04-02 13:55 | MHC.OFFVIS ---
Vital Signs 04/02/24 14:05 Height 5 ft 5 in Weight 243 lb BMI 40.4 Intake Visit Reasons: Inj-Bilateral Knee Euflexxa #3 Intake Note: Laura is a 58 year old female who presents today for her third dose of Euflexxa on both of her knees. She states that she has gotten mild relief from the 1st 2 injections. She continues with her home exercise program. Allergies No Known Allergies Allergy (Verified 04/02/24 14:05) Medication List - Last Reconciled 04/03/24 by Stanford Dueñas MD albuterol sulfate 90 mcg/actuation (ProAir HFA) 2 puffs inhalation Q4-6H PRN amlodipine 10 mg PO DAILY aspirin (Adult Low Dose Aspirin) 81 mg PO DAILY cyanocobalamin (vitamin B-12) 1,000 mcg PO DAILY ferrous gluconate 240 mg PO DAILY Lactobacillus rhamnosus GG (Culturelle) 1 cap PO DAILY vedolizumab (Entyvio) 300 mg IV Q6W 6 months zinc acetate (Galzin) 50 mg PO DAILY PFSH Medical History Pulmonary nodules Iron (Fe) deficiency anemia PONV (postoperative nausea and vomiting) Colitis History of anxiety Sleep apnea Impaired fasting blood sugar HTN (hypertension) Asthma Abdominal hernia Abdominal pain Morbid obesity Surgical History History of hernia repair (~2020) History of hysterectomy Hx of tonsillectomy Hx of colonoscopy History of hernia surgery Family History (Updated 09/27/23 @ 11:39 by Nora Kramer [facility]) Mother Vascular dementia Colon cancer Father No problems noted. 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 Cognitive needs: No Hearing needs: No Vision needs: No Physical Exam Vital Signs: BMI result Body Mass Index 40.4 Extrem Other: Bilateral knee examination shows minimal effusions, palpable crepitus with range of motion, pain with range of motion, no instability Office Procedures AMB Joint Injection/Aspiration Joint Injection/Aspiration Primary Site: left knee Prep: site was prepped using aseptic technique Injected: 20 mg of (Euflexxa viscosupplementation) and 1% plain lidocaine Procedure: The patient tolerated the procedure well Coding - Large joint Procedure code (CPT) selection complete AMB Joint Injection/Aspiration Joint Injection/Aspiration Primary Site: right knee Prep: site was prepped using aseptic technique Injected: 20 mg of (Euflexxa viscosupplementation) and 1% plain lidocaine Procedure: The patient tolerated the procedure well Coding - Large joint Procedure code (CPT) selection complete Assessment & Plan Assessment & Plan (1) Osteoarthritis of left knee: Code(s): M17.12 - Unilateral primary osteoarthritis, left knee Category: Medical (2) Osteoarthritis of right knee: Code(s): M17.11 - Unilateral primary osteoarthritis, right knee Category: Medical Plan Ms. Branham presents with bilateral knee pains due to osteoarthritis. The risks and benefits of a 3rd set of Euflexxa viscosupplementation injections were discussed at length with the patient. The patient wished to proceed. She tolerated the injections well. She will continue with her home exercise program. She will contact me prior to her follow-up appointment in 3 months should any questions or concerns arise. Feel free to call me at any time should questions regarding her orthopedic management arise. Orders: Orders AMB Joint Injection/Aspiration 04/02/24 M17.12 - Unilateral primary osteoarthritis, left knee AMB Joint Injection/Aspiration 04/02/24 M17.11 - Unilateral primary osteoarthritis, right knee Coding Level of Care Code Procedure Only Diagnoses Osteoarthritis of left knee M17.12 Osteoarthritis of right knee M17.11 CPT Codes Coding - Large joint: 80640 - Large joint ([id number]) Coding - 66292 Large joint: 54306 - Large joint ([id number])
[2024-04-02 14:05] VITALS: BMI 40.4
== END 2024-04-02 14:30 | disposition home or self-care (01) ==
PROVIDERS: PCP Internal Medicine; Visit Provider Orthopaedic Surgery
DX: M17.0 Bilateral primary osteoarthritis of knee (principal)
CPT/HCPCS: 20610

== ENCOUNTER → 2024-04-02 13:51 | Outpatient (BNVA) | payer OTHER, SELFPAY | PROVIDERS: PCP Internal Medicine; Visit Provider Orthopaedic Surgery | DX: M17.0 Bilateral primary osteoarthritis of knee (principal) | CPT/HCPCS: 20610; J2003; J7323 ==

== ENCOUNTER 2024-04-08 18:06 | Outpatient (REF) | payer OTHER, SELFPAY ==
--- NOTE | ~2024-04-08 | MR_ITS ---
EXAMINATION: MR HIP WITHOUT CONTRAST, RIGHT CLINICAL INFORMATION: Increasing pain. No recent injury. COMPARISON: Correlated to x-ray dated March 26, 2024. TECHNIQUE: MRI of the right hip was obtained using routine sequences on a high-field strength magnet. FINDINGS: Subchondral cyst formation along the anterior superior right acetabulum. Joint space narrowing slightly asymmetric, right coxofemoral joint. Mild to moderate volume loss of the femoral head with small subchondral cyst formation. Trace of joint effusion, coxofemoral joint. No gross malalignment. Flow-void signal within the main vessels is normal. There are few scattered diverticula in the sigmoid colon. Absent uterus likely post surgical. Nonspecific mildly prominent inguinal lymph nodes. MR/MR hip RT wo con IMPRESSION: Moderate to severe osteoarthrosis, right coxofemoral joint. Electronically signed by: Tacho Murphy MD 04/09/2024 07:48 AM [facility]
== END 2024-04-08 18:07 | disposition home or self-care (01) ==
LOC: HO.MRI 18:06
PROVIDERS: Visit Provider Orthopaedic Surgery
DX: M25.551 Pain in right hip (principal)
CPT/HCPCS: 73721

== ENCOUNTER → 2024-04-08 18:16 | Outpatient (BNV) | payer OTHER, SELFPAY | PROVIDERS: Visit Provider Radiology Diagnostic Radiology | DX: M16.11 Unilateral primary osteoarthritis, right hip (principal) | CPT/HCPCS: 73721 ==

== ENCOUNTER 2024-04-25 09:45 | Outpatient (REF) | payer OTHER, SELFPAY ==
[2024-04-25 10:55] LABS: MANUAL DIFF FLAG NO
[2024-04-25 11:28] LABS: Basophils Percent Auto 0.7 % (0-2); Eosinophils Absolute Auto 0.2 X10*3/uL (0.0-0.4); Eosinophils Percent Auto 3.9 % (0-4); Hematocrit 43.4 % (37.0-47.0); Hemoglobin 13.9 g/dl (12.0-16.0); Imm Gran Abs Auto 0.01 X10*3/uL (0.00-0.03); Imm Gran Pct Auto 0.2 % (0.0-0.4); Lymphocytes Absolute Auto 1.7 X10*3/uL (1.2-4.9); Lymphocytes Percent Auto 27.7 % (20-40); Mean Corpuscular Hemoglobin 28.9 pg (27.0-33.0); Mean Corpuscular Volume 90.2 fL (80.0-98.0); Mean Platelet Volume 10.1 fL (9.4-12.3); Monocytes Absolute Auto 0.5 X10*3/uL (0.1-1.2); Monocytes Percent Auto 7.9 % (2-11); Neutrophils Absolute Auto 3.6 x10*3/uL (2.0-8.3); Neutrophils Percent Auto 59.6 % (45-73); Platelet Count 199 X10*3/uL (160-400); Red Blood Count 4.81 X10*6/uL (4.20-5.50); Red Cell Distribution Width 12.9 % (11.0-16.0); White Blood Count 6.1 X10*3/uL (4.8-10.8)
[2024-04-25 12:11] LABS: Alanine Aminotransferase 20 U/L (0-31); Alkaline Phosphatase 110 U/L (39-117); Anion Gap 11 (12-20); Aspartate Amino Transferase 20 U/L (5-31); Bilirubin Total 0.5 mg/dL (0.0-1.0); Blood Urea Nitrogen 8 mg/dL (9-16); Calcium 9.3 mg/dL (8.4-10.2); Carbon Dioxide 29 mmol/L (22-29); Chloride 104 mmol/L (96-108); Estimated Glomerular Filt Rate > 60; Glucose Random 94 mg/dL (60-115); Potassium 4.1 mmol/L (3.3-5.1); Sodium 140 mmol/L (135-145); Total Protein 6.9 g/dL (6.5-8.0)
== END 2024-04-25 09:46 | disposition home or self-care (01) ==
LOC: HO.LAB 09:45
PROVIDERS: PCP Internal Medicine; Visit Provider Internal Medicine Gastroenterology
DX: K52.9 Noninfective gastroenteritis and colitis, unspecified (principal); K51.50 Left sided colitis without complications
CPT/HCPCS: 36415; 80053; 85025; 86140; 99212

== ENCOUNTER 2024-04-25 09:45 | Outpatient (AMB) | payer OTHER, SELFPAY ==
[2024-04-25 09:57] VITALS: BP 141/65; PULSE 88; BMI 41.1
--- NOTE | 2024-04-25 09:57 | MHC.OFFVIS ---
Vital Signs 04/25/24 09:57 Height 5 ft 5 in Weight 246 lb 14.684 oz BMI 41.1 BP 141/65 H Blood Pressure Location Lt brachial Position Sitting Pulse 88 Intake Visit Reasons: 6 month follow up Intake Note: Laura presents in the office as a 6 month follow up. CC: She states that she is feeling okay with her GI symptoms. Turn Down Worker Required: No Allergies No Known Allergies Allergy (Verified 04/25/24 09:57) HPI HPI 6 month follow up: Details: 58 yr old f here for f/u RECAP: she had been having abn bowel habits colonoscopy 08/30 --bx with chronic moderate active proctitis Stool for C diff was sent and was negative she hernia repair with Dr Stinson she was initially tried on mesalamine but this was not effective, so switched to entyvio 12/2021 Sigmoidoscopy: 08/01--moderate proctitis, on entyvio q6 wk CT 03/03-- uncomplicated diverticulitis INTERIM: she is still happy with the entyvio q6 weeks she is going to get hip surgery in the near future no diarrhea no abdominal pain no blood in stool stress has been going up, issues with daughter and son, joints etc--son had diverticulitis and surgery still taking iron , b12 supps EXAM: GENERAL: The patient is well developed and nontoxic. VITAL SIGNS:see workflow HEENT: Nonicteric sclerae, PERRLA, EOMI. Oropharynx clear. Moist mucous membranes. Conjunctivae appear well perfused. No thyroid mass. CHEST: Chest wall is nontender. HEART: Regular rate and rhythm without murmurs. LUNGS: Clear to auscultation bilaterally. ABDOMEN: Soft, positive bowel sounds, nontender, no organomegaly.no flank tenderness--scar noted mid line abdomen SKIN: No rash, no excessive bruising, petechiae, or purpura. NEUROLOGIC: Cranial nerves II-XII intact without motor/sensory deficit. 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 2/ iron def related to above, HGb has been stable PLAN: 1/ recheck fecal lactoferrin, and labs today 2/ cont with entyvio--seems to be in clinical remission [facility] Medical History Pulmonary nodules Iron (Fe) deficiency anemia PONV (postoperative nausea and vomiting) Colitis History of anxiety Sleep apnea Impaired fasting blood sugar HTN (hypertension) Asthma Abdominal hernia Abdominal pain Morbid obesity Surgical History History of hernia repair (~2020) History of hysterectomy Hx of tonsillectomy Hx of colonoscopy History of hernia surgery Family History (Updated 09/27/23 @ 11:39 by Nora Kramer [employer]) Mother Vascular dementia Colon cancer Father No problems noted. 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 Panel Today K52.9 - Noninfective gastroenteritis and colitis, unspecified C Reactive Protein Today K52.9 - Noninfective gastroenteritis and colitis, unspecified Lactoferrin, Fecal, Quant. Today K51.50 - Left sided colitis without complications, K52.9 - Noninfective gastroenteritis and colitis, unspecified Complete Blood Count Auto Diff Today K52.9 - Noninfective gastroenteritis and colitis, unspecified Coding Level of Care Code Est Pt Level 3 (91889) Diagnoses Colitis K52.9
== END 2024-04-25 10:27 | disposition home or self-care (01) ==
PROVIDERS: PCP Internal Medicine; Visit Provider Internal Medicine Gastroenterology
DX: K52.9 Noninfective gastroenteritis and colitis, unspecified (principal)
CPT/HCPCS: 99213

== ENCOUNTER 2024-05-15 11:56 | Outpatient (AMB) | payer OTHER, SELFPAY ==
--- NOTE | 2024-05-15 12:02 | MHC.OFFVIS ---
Intake Visit Reasons: OV- Right hip arthritis, discuss NISHI per DR Intake Note: Laura is a 58 year old female who presents today for a follow up of her left hip OA. She is a patient of Dr. Rosenbaum and is being treated by him for her knees but referred her for discussion of possible NISHI. MRI done 04/09/24. Patient reports that she has had long standing hip pain, in the past it felt like the hip would intermittently come out of socket. Currently she describes her pain as a constant toothache. She has taken prednisone in the past which was not helpful. Allergies No Known Allergies Allergy (Verified 04/25/24 09:57) HPI HPI OV- Right hip arthritis, discuss NISHI per DR: Details: Laura is a 58 year old female who presents today for a follow up of her left hip OA. She is a patient of Dr. Rosenbaum and is being treated by him for her knees but referred her for discussion of possible NISHI. MRI done 04/09/24. Patient reports that she has had long standing hip pain, in the past it felt like the hip would intermittently come out of socket. Currently she describes her pain as a constant toothache. She has taken prednisone in the past which was not helpful. [facility] Medical History Pulmonary nodules Iron (Fe) deficiency anemia PONV (postoperative nausea and vomiting) Colitis History of anxiety Sleep apnea Impaired fasting blood sugar HTN (hypertension) Asthma Abdominal hernia Abdominal pain Morbid obesity Surgical History History of hernia repair (~2020) History of hysterectomy Hx of tonsillectomy Hx of colonoscopy History of hernia surgery Family History (Updated 09/27/23 @ 11:39 by Nora Kramer CMA) Mother Vascular dementia Colon cancer Father No problems noted. 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 She walks with minimal gait antalgia however. 0-90 degrees motion is not painful. Results Reviewed Results Reviewed: I personally reviewed relevant radiographs. I personally reviewed the MR images. Moderate to severe right hip osteoarthritis Assessment & Plan Assessment & Plan (1) Primary osteoarthritis of right hip: Code(s): M16.11 - Unilateral primary osteoarthritis, right hip Category: Medical Plan: This is a 58-year-old woman with multiple medical problems and a history of bilateral knee and right hip osteoarthritis. We had a long discussion. She has multiple medical conditions and surgery would, for these reasons, likely be difficult. In addition. She is pretty functional and her pain is tolerable. I discussed this with her. Should her pain worsen she will return to see me. Coding Level of Care Code Est Pt Level 3 (30362) Diagnoses Primary osteoarthritis of right hip M16.11
== END 2024-05-15 12:52 | disposition home or self-care (01) ==
PROVIDERS: Visit Provider Orthopaedic Surgery
DX: M16.11 Unilateral primary osteoarthritis, right hip (principal); M24.851 Other specific joint derangements of right hip, not elsewhere classified
CPT/HCPCS: 99213

== ENCOUNTER → 2024-05-15 11:56 | Outpatient (BNVA) | payer OTHER, SELFPAY | PROVIDERS: Visit Provider Orthopaedic Surgery | DX: M16.11 Unilateral primary osteoarthritis, right hip (principal) | CPT/HCPCS: 99212 ==

== ENCOUNTER 2024-06-19 07:42 | Day surgery (SDC) | payer OTHER, SELFPAY ==
[2024-06-17 15:14] VITALS: BMI 41.1
--- NOTE | 2024-06-18 10:31 | HO.ANESPROP2 ---
Documented by User: Sandra Barrios NP 06/18/24 10:31 HPI - Anesthesia Eval Consult details Narrative: 58yo F for Sigmoidoscopy Flexible PMFSH Active Problems Active Problems: All Active Problems Primary osteoarthritis of right hip (Acute) Right hip pain (Acute) Osteoarthritis of right knee (Acute) Osteoarthritis of left knee (Acute) Right hip pain (Acute) Malnutrition (Acute) Right knee pain (Acute) Left knee pain (Acute) Incisional hernia (Acute) Low back pain (Acute) Pulmonary nodules (Acute) Asthma (Acute) Paresthesias (Acute) Hypertension (Acute) Stiffness of finger joint of right hand (Acute) Mallet deformity of right middle finger (Acute) Open wound of right middle finger due to dog bite (Acute) Colitis (Acute) Exposure to COVID-19 virus (Acute) Rectal Hemorrhage (Acute) Abdominal hernia (Acute) Abdominal pain (Acute) Morbid obesity (Acute) Past Medical History Medical History Pulmonary nodules Iron (Fe) deficiency anemia PONV (postoperative nausea and vomiting) Colitis History of anxiety Sleep apnea Impaired fasting blood sugar HTN (hypertension) Asthma Abdominal hernia Abdominal pain Morbid obesity Family History Family History Mother Vascular dementia Colon cancer Father No problems noted. Family history of problems with anesthesia: No Surgical History Surgical History History of hernia repair (~2020) History of hysterectomy Hx of tonsillectomy Hx of colonoscopy History of hernia surgery History of Problems with Anesthesia: Yes Social History Social History Household Members: Children Are you a primary health care liaison to a significant other at home: No Do you presently have visiting nurse or other home services: No Alcohol intake: current Alcohol intake frequency: a few times a month Comment: medicated in pacu Patient Tobacco Use Status: Former Tobacco user Tobacco use type: Cigarette e-Cigarette/Vaping Use: Never Used Second Hand Smoke Exposure: No Substance Use Frequency: Occasionally Have you been hit, kicked, punched, or otherwise hurt by someone within the past year? 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 Cognitive needs: No Hearing needs: No Vision needs: No Meds Allergies Allergy/AdvReac Type Severity Reaction Status Date / Time No Known Allergies Allergy Verified 04/25/24 09:57 Home Medications ?Medication ?Instructions ?Recorded ?Confirmed ?Last Taken ?Type aspirin 81 mg tablet,delayed 81 mg PO DAILY 07/28/20 04/03/24 07/25/22 History release (Adult Low Dose Aspirin) Exam Height,Weight and Vital Signs: Height 5 ft 5 in Weight 111.981 kg Assessment and Plan Assessment Anesthesia Assessment: Chart Reviewed Final Anesthetic Review Family History of Problems with Anesthesia: No History of Problems with Anesthesia: Yes Documented by User: Brittany Cardenas MD 06/19/24 08:02 [facility] Past Medical History Medical History Pulmonary nodules Iron (Fe) deficiency anemia PONV (postoperative nausea and vomiting) Colitis History of anxiety Sleep apnea Impaired fasting blood sugar HTN (hypertension) Asthma Abdominal hernia Abdominal pain Morbid obesity Family History Family History Mother Vascular dementia Colon cancer Father No problems noted. Surgical History Surgical History History of hernia repair (~2020) History of hysterectomy Hx of tonsillectomy Hx of colonoscopy History of hernia surgery Social History Social History Household Members: Children Are you a primary health care liaison to a significant other at home: No Do you presently have visiting nurse or other home services: No Alcohol intake: current Alcohol intake frequency: a few times a month Comment: medicated in pacu Patient Tobacco Use Status: Former Tobacco user Tobacco use type: Cigarette e-Cigarette/Vaping Use: Never Used Second Hand Smoke Exposure: No Substance Use Frequency: Occasionally Have you been hit, kicked, punched, or otherwise hurt by someone within the past year? 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 Discussed Final Anesthetic Review NPO: Yes ASA Class: II Final Preanesthetic Review: No Changes in Pt Med Stat, Meds/Allgs Chart Reviewed, Consent Obtained/Reviewed and Anes Risks/Benef Reviewed Patient Risk: Low Procedure Risk: Low Anesthetic Plan Anesthetic Plan: MAC: Disposition: Standard PACU
[2024-06-19 07:51] VITALS: BMI 40.9
[2024-06-19] MEDS: Sodium Phosphate,Mono-Dibasic 133 ML ENEMA PR (07:55)
[2024-06-19] MEDS: Lactated Ringers 1,000 ML 100 ML IVCONT (07:56)
--- NOTE | 2024-06-19 07:59 | PC.NURSE ---
Will call pharmacy. code on LR not scanning.
--- NOTE | 2024-06-19 08:06 | MHC.SHP ---
Pre-Procedural Eval Section A - 24 Hr Update-Section A only Date of Service: 06/19/24 Section B - Complete if H&P > 30 days Chief Complaint: Noninfective gastroenteritis and colitis, Relevant Family History (Specify if Yes): No Relevant Social History: None Present Medications: see Short Stay Collaborative assessment Medical History: Significant History (Pulmonary nodules Iron (Fe) deficiency anemia PONV (postoperative nausea and vomiting) Colitis History of anxiety Sleep apnea Impaired fasting blood sugar HTN (hypertension) Asthma Abdominal hernia Abdominal pain Morbid obesity) History of Previous Operations: Relevant previous surgery/procedure and date(s) ( History of hernia repair (~2020) History of hysterectomy Hx of tonsillectomy Hx of colonoscopy History of hernia surgery) Allergies: Allergies Allergy/AdvReac Type Severity Reaction Status Date / Time No Known Allergies Allergy Verified 04/25/24 09:57 Review of Systems Sugical H&P ROS: Negative: Constitution, Cardiovascular, Respiratory, Neurological, Psychiatric, Hem-Onc, Allergic/Immunologic, Gastrointestinal, Genitourinary, Musculoskeletal, Integumentary, Endocrine and Eyes/Ears/Nose/Throat Exam Surgical H&P Exam: Normal: HEENT, Normal: Heart, Normal: Lungs, Normal: Extremities, Normal: Abdomen, Normal: Skin and Normal: Neurological Plan Diagnosis/Plan: Unchanged I have reviewed the history and physical and performed a pertinent physical examination on my patient. No changes have occurred unless specified. Time Spent With Patient Time: Total time managing care of this patient today ____ minutes.
[2024-06-19 08:23] VITALS: BP 146/51; PULSE 95; RESP 18; TEMP 36.6; O2SAT 100
--- NOTE | 2024-06-19 09:00 | W.PM.OPN ---
Operative Note Operative Note Date of Service: 06/19/24 Narrative: Procedure Description: sigmoidoscopy Indication: colitis Anesthesia: MAC Sigmoidoscopy Instrument: Upper endoscope Colonoscopy Monitoring: Vital signs and clinical assessment, continuous EKG monitoring, Pulse oximetry, Carbon Dioxide monitoring and blood pressure monitoring were done throughout the procedure. Procedure: The patient was placed in the left lateral decubitis position and pre-procedure medications were administered. After a digital rectal examination of the ano-rectum, the video colonoscope was inserted into the rectum and advanced through the colon to the sigmoid colon The scope was slowly withdrawn in a retrograde panoramic fashion and the colon mucosa was carefully examined . Findings and interventions are described below. Procedure Difficulty: easy Findings: Transverse Colon: 10 mm sessile polyp removed with cold snare, bx taken random Descending and Sigmoid Colon: normal, random bx taken Rectum: Normal , retroflexion with small internal hemorrhoids -bx taken Anorectum - normal Colon preparation: fair Impression and Post Procedure Diagnosis: internal hemorrhoids colon polyp Plan: bring back for full colonoscopy due to finding of polyp today Above findings were reviewed with the patient and relevant handouts were provided if indicated.
[2024-06-19 09:03] VITALS: BP 116/64; PULSE 70; RESP 12; TEMP 36.3
[2024-06-19 09:18] VITALS: BP 133/86; PULSE 64; RESP 16; TEMP 36.5; O2SAT 97
[2024-06-19 10:22] LABS: CDiff Gene PCR NEGATIVE (Negative)
[2024-06-19 12:05] LABS: Adenovirus F 40/41 Not Detected (Not Detect.); Astrovirus Not Detected (Not Detect.); Campylobacter Not Detected (Not Detect.); Cryptosporidium Not Detected (Not Detect.); Cyclospora cayetanensis Not Detected (Not Detect.); E. coli EAEC Not Detected (Not Detect.); E. coli EPEC Detected (Not Detect.); E. coli ETEC Not Detected (Not Detect.); E. coli STEC Not Detected (Not Detect.); Entamoeba histolytica Not Detected (Not Detect.); Giardia lamblia Not Detected (Not Detect.); Norovirus GI/GII Not Detected (Not Detect.); Plesiomonas shigelloides Not Detected (Not Detect.); Rotavirus A Not Detected (Not Detect.); Salmonella Not Detected (Not Detect.); Sapovirus Not Detected (Not Detect.); Shigella sp./EIEC Not Detected (Not Detect.); Vibrio Not Detected (Not Detect.); Vibrio Cholerae Not Detected (Not Detect.); Yersinia enterocolitica Not Detected (Not Detect.)
[2024-06-25 21:54] LABS: Lactoferrin, Fecal, Quant. <6.25 mcg/mL (<7.25)
== END 2024-06-19 09:38 | disposition home or self-care (01) ==
PROVIDERS: PCP Internal Medicine; Visit Provider Internal Medicine Gastroenterology
PROC: 0DJD8ZZ Inspection of Lower Intestinal Tract, Via Natural or Artificial Opening Endoscopic (ICD-10-PCS; CPT 45330; principal; 2024-06-19 09:10)
DX: K52.9 Noninfective gastroenteritis and colitis, unspecified (principal); K51.40 Inflammatory polyps of colon without complications; K64.0 First degree hemorrhoids; I10 Essential (primary) hypertension; D50.9 Iron deficiency anemia, unspecified; R73.01 Impaired fasting glucose; J45.909 Unspecified asthma, uncomplicated; R91.8 Other nonspecific abnormal finding of lung field; G47.33 Obstructive sleep apnea (adult) (pediatric); E66.01 Morbid (severe) obesity due to excess calories; Z68.41 Body mass index [BMI] 40.0-44.9, adult; Z79.620 Long term (current) use of immunosuppressive biologic; Z98.890 Other specified postprocedural states; Z87.891 Personal history of nicotine dependence
CPT/HCPCS: 45338; 45331; 83631; 87493; 87507; 88305; J2003; J2405; J2704

== ENCOUNTER → 2024-06-19 07:42 | Outpatient (BNV) | payer OTHER, SELFPAY | PROVIDERS: PCP Internal Medicine; Visit Provider Internal Medicine Gastroenterology | DX: K52.9 Noninfective gastroenteritis and colitis, unspecified (principal); K63.5 Polyp of colon; K64.8 Other hemorrhoids | CPT/HCPCS: 45331 ==

== ENCOUNTER 2024-07-31 08:52 | Outpatient (AMB) | payer OTHER, SELFPAY ==
[2024-07-31 08:59] VITALS: BP 126/80; PULSE 72; O2SAT 96; BMI 40.8
--- NOTE | 2024-07-31 08:59 | A.OFFPC_ITS ---
Vital Signs 07/31/24 08:59 Height 5 ft 5 in Weight 245 lb 2 oz BMI 40.8 BP 126/80 Blood Pressure Location Lt brachial Position Sitting Pulse 72 Pulse Source Pulse Oximeter Pulse Oximetry (%) 96 Oxygen Delivery Method Room Air Intake Visit Reasons: Pre-op R NISHI 09/30/24 Dr Beth Propeller Mechanic Required: No Accompanied by: Self / Same As Patient Allergies No Known Allergies Allergy (Verified 07/31/24 09:28) Medication List - Last Reconciled 07/31/24 by Sonia Billings PA-C albuterol sulfate 90 mcg/actuation (ProAir HFA) 2 puffs inhalation Q4-6H PRN amlodipine 10 mg PO DAILY aspirin (Adult Low Dose Aspirin) 81 mg PO DAILY cyanocobalamin (vitamin B-12) 1,000 mcg PO DAILY ferrous gluconate 240 mg PO DAILY [Raised toilet seat duration - 99 days] [SHOWER CHAIR Duration 99 days] vedolizumab (Entyvio) 300 mg IV Q6W 6 months walker Folding Front wheeled walker Duration 99 days zinc acetate (Galzin) 50 mg PO DAILY Tobacco use date assessed: 07/31/24 Dental Screening Dental Screen Date: 07/31/24 Did you have a dental visit in the last 12 months?: No Did you have a dental problem in the last 6 months where you did not have access to dental care?: No Was dental information given to patient?: No HPI Pre-op R NISHI 09/30/24 Dr Beth HPI Details 58-year-old female with past medical his tory of morbid obesity, hypertension, asthma, pulmonary nodules last seen 09/[address] Dos Santos coming in for preop. Patient is scheduled to have RTHR with Dr. Beth 09/30/2024. Hypertension: blood pressure at goal today 126/80 currently on Amlodipine Asthma: stable on albuterol prn Patient has had surgery and anesthesia in the past without complication or infection. Does have nausea with anesthesia. No history of CVA, [place], DM or CHF. Patient has no concerns today but does mentioned new swelling of the neck. [facility] Medical History Pulmonary nodules Iron (Fe) deficiency anemia PONV (postoperative nausea and vomiting) Colitis History of anxiety Sleep apnea Impaired fasting blood sugar HTN (hypertension) Asthma Abdominal hernia Abdominal pain Morbid obesity Surgical History History of hernia repair (~2020) History of hysterectomy Hx of tonsillectomy Hx of colonoscopy History of hernia surgery Family History Mother Vascular dementia Colon cancer Father No problems noted. 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 1. Little interest or pleasure in doing things: not at all 2. Feeling down, depressed, or hopeless: not at all 3. Trouble falling or staying asleep, or sleeping too much: not at all 4. Feeling tired or having little energy: not at all 5. Poor appetite or overeating: not at all 6. Feeling bad about yourself - or that you are a failure or have let yourself or your family down: not at all 7. Trouble concentrating on things, such as reading the newspaper or watching television: not at all 8. Moving or speaking so slowly that other people could have noticed. Or the opposite - being so fidgety or restless that you have been moving around a lot more than usual: not at all 9. Thoughts that you would be better off or of hurting yourself in some way: not at all Total score: 0 Depression Screening Interpretation: Negative Depression Screening Done: Yes 65670 - PHQ-9 Billing: Yes Source: Developed by Drs. Terence Kenney, Perri Coy, Tavares Stallworth and colleagues, with an educational an from [employer]. Thrive Questionnaire Date Thrive assessed: 07/31/24 I am a: Patient What is your living situation today?: I have a steady place to live Within the past 12 months, did the food you bought not last and you didn't have the money to get more?: Never true Within the past 12 months, did you worry whether your food would run out before you got money to buy more?: Never true Do you have trouble paying for medicines?: No Do you have trouble getting transportation to medical appointments?: No Do you have trouble paying your heating and electricity bill?: No Do you have trouble taking care of your child, family member or friend?: No Do you have trouble with day-to-day activities such as bathing, preparing meals, shopping, managing finances, etc.?: No Are you currently unemployed and looking for a job?: No Are you interested in more education?: No Please select the resources that you would like help with: None Currently or been in a relationship where the following occur: No concerns reported THRIVE Score: 0 AUDIT C Alcohol Use Questionnaire (AUDIT-C) 1. How often do you have a drink containing alcohol?: Monthly or less 2. How many drinks containing alcohol do you have on a typical day when you are drinking?: 1 or 2 3. How often do you have six or more drinks on one occasion?: Never Total Score: 1 TALISHA-7 AMB Questionnaire TALISHA-7 Date TALISHA - 7 assessed: 07/31/24 Feeling nervous, anxious, or on edge: 0 = Not at all Not being able to stop or control worryin = Not at all Worrying too much about different things: 0 = Not at all Trouble relaxin = Not at all Being so restless that it is hard to sit still: 0 = Not at all Becoming easily annoyed or irritable: 0 = Not at all Feeling afraid as if something awful might happen: 0 = Not at all Total TALISHA-7 score (0-4 normal; 5-9 mild; 10-14 moderate; 15-21 severe): 0 Source: Developed by Drs. Terence Kenney, Perri Coy, Tavares Stallworth and colleagues, with an educational an from [employer]. TALISHA-7 Assessment Billing TALISHA-7 Assessment Tool: TALISHA-7 Assessment 13666 Review of Systems Const Denies body aches, Denies chills, Denies fever(s), Denies headache(s) and Denies poor appetite Eyes Reports no additional complaints ENT Denies dysphagia, Denies dizziness, Denies headache(s) and Denies odynophagia Card Denies chest pain, Denies syncope, Denies edema, Denies irregular heart rhythm, Denies lightheadedness and Denies dyspnea Resp Denies cough and Denies dyspnea GI Denies abdominal pain, Denies constipation, Denies dysphagia, Denies diarrhea, Denies nausea, Denies odynophagia and Denies vomiting Reports no additional complaints Musc Reports no additional complaints and Denies abnormal gait Skin/Breast Reports system reviewed and no additional complaints, except as documented Neuro Denies abnormal gait, Denies dizziness, Denies syncope and Denies headache(s) Psych Reports no additional complaints Physical exam (Primary Care) Vital Signs: Last Vital Signs Pulse 72 07/31/24 08:59 BP 126/80 07/31/24 08:59 Pulse Ox 96 07/31/24 08:59 Oxygen Delivery Method Room Air 07/31/24 08:59 BMI result Body Mass Index 40.8 Tobacco/Smoking Status: Tobacco use Status Tobacco use date assessed 07/31/24 07/31/24 09:08 Patient Tobacco Use Status Former Tobacco user 07/31/24 09:08 Tobacco use type Cigarette 07/31/24 09:08 e-Cigarette/Vaping Use Never Used 07/31/24 09:08 PHQ-9: PHQ-9 Score PHQ-9: Total score 0 07/31/24 09:20 Depression Screening Interpretation: Negative Thrive Assessment: Date of Thrive Assessment Date Thrive assessed 07/31/24 07/31/24 09:08 Currently or been in a relationship where the following occur: No concerns reported Const General: cooperative, healthy appearing, comfortable and no acute distress Orientation/consciousness: patient oriented x3 HENMT Head: Yes normocephalic Ears: hearing grossly normal bilaterally General nose exam: Normal external nose present Eyes General: appearance normal, both eyes and all related structures Conjunctivae: conjunctivae normal Neck Other: Enlarged, nontender flare red without redness or warmth. No palpable nodules Neck: Yes full ROM and Yes no lymphadenopathy Resp Effort & Inspection: normal respiratory effort Auscultation: clear to auscultation bilaterally, no crackles, no rales, no rhonchi and no wheezes Cardio Rate: regular rate Rhythm: regular rhythm Skin General skin exam: no rashes or lesions noted Neuro General: patient oriented x3 Gait exam (Neuro): Normal gait present Extrem General: Yes normal to inspection, Yes full ROM and No edema Psych Affect: normal affect Attitude: cooperative Insight: Good insight present (Psych) Judgement: Good judgement present (Psych) Coding Level of Care Code Est Pt Level 3 (19629) Diagnoses Pre-op exam Z01.818 Enlarged thyroid E04.9 Additional Codes TALISHA-7 Assessment Billing - TALISHA-7 Assessment Tool: TALISHA-7 Assessment 82148 ([id number]) PHQ-9 - 80525 - PHQ-9 Billing: Yes ([id number]) Assessment & Plan Assessment & Plan (1) Pre-op exam: Code(s): Z01.818 - Encounter for other preprocedural examination Category: Medical Plan: Regarding preop clearance, the patient is at moderate risk for proposed surgery due to age however comorbidities are well managed at this time. Reviewed with the patient that no surgery is completely free of risk and that this examination is to assist the surgeon in reviewing informed consent. Discussed with the patient she may take all medications up until the day of the procedure. She may hold her aspirin 1 week prior to surgery and avoid NSAIDs 1 week prior to surgery as well. Plan to obtain EKG and blood work closer to surgery and addendum will be added provided clearance after these have been reviewed. (2) Enlarged thyroid: Code(s): E04.9 - Nontoxic goiter, unspecified Category: Medical Plan: Patient having enlarged thyroid on exam plan to obtain thyroid levels as well as thyroid ultrasound for further evaluation. Patient is asymptomatic at this time and denies any difficulty or painful swallowing likely this would not interfere with her preoperative clearance. Plan This note was constructed using voice recognition software. While every effort has been made to ensure accuracy and lead esthetician, still areas may have been included sometimes these areas may affect the content or meeting of the given symptoms. Total time spent caring for the patient today was 20 minutes. This includes time spent before the visit reviewing the chart, time spent during the visit, and time spent after the visit and documentation. Orders: Orders Complete Blood Count Auto Diff Today Z01.818 - Encounter for other preprocedural examination Comprehensive Met. Panel Today Z01.818 - Encounter for other preprocedural examination Lipid Panel Today Z13.220 - Encounter for screening for lipoid disorders Free T4 (Free Thyroxine) Today E04.9 - Nontoxic goiter, unspecified, Z00.00 - Encounter for general adult medical examination without abnormal findings ECG 12 lead EKG Today Z01.818 - Encounter for other preprocedural examination Hemoglobin A1c Today Z01.818 - Encounter for other preprocedural examination US thyroid Today E04.9 - Nontoxic goiter, unspecified TSH reflex Free T4 Today E04.9 - Nontoxic goiter, unspecified, Z00.00 - Encounter for general adult medical examination without abnormal findings Medications: Changed From albuterol sulfate 90 mcg/actuation (ProAir HFA) 2 puffs inhalation Q4-6H PRN 8.5 grams 8RF Wheezing To albuterol sulfate 90 mcg/actuation 2 puffs inhalation Q4-6H PRN 8.5 grams 8RF Wheezing
== END 2024-07-31 10:15 | disposition home or self-care (01) ==
LOC: HO.HMCH 08:53
PROVIDERS: PCP Internal Medicine
DX: Z01.818 Encounter for other preprocedural examination (principal); E04.9 Nontoxic goiter, unspecified

== ENCOUNTER → 2024-07-31 08:52 | Outpatient (BNVA) | payer OTHER, SELFPAY | PROVIDERS: PCP Internal Medicine | DX: Z01.818 Encounter for other preprocedural examination (principal); E04.9 Nontoxic goiter, unspecified; E66.01 Morbid (severe) obesity due to excess calories; I10 Essential (primary) hypertension; J45.909 Unspecified asthma, uncomplicated; R91.8 Other nonspecific abnormal finding of lung field; Z68.41 Body mass index [BMI] 40.0-44.9, adult | CPT/HCPCS: 96127; 99212 ==

== ENCOUNTER 2024-08-14 11:20 | Outpatient (REF) | payer OTHER, SELFPAY ==
--- NOTE | ~2024-08-14 | US_ITS ---
EXAMINATION: US THYROID CLINICAL INFORMATION: Nontoxic goiter, unspecified. COMPARISON: None available. TECHNIQUE: Linear transducer grayscale and color Doppler examination with attention to the region of the thyroid. FINDINGS: SIZE: Measurements of the thyroid lobes and nodules are given in sagittal, anteroposterior and transverse dimensions respectively. Right Thyroid Lobe: 5.4 x 2.1 x 2.2 cm, volume 13.1 mL. Parenchyma: The gland echotexture is heterogeneous. Thyroid vascularity is increased. Left Thyroid Lobe: 5.4 x 2.1 x 1.9 cm, volume 11.0 mL. Parenchyma: The gland echotexture is heterogeneous. Thyroid vascularity is increased. Isthmus: 0.2 cm in maximum AP dimension. Estimated total number of nodules greater than or equal to 1 cm: 1. Change Over centimeter and subcentimeter nodules are described as follows: 1. Location: Right mid pole. Size: 0.8 x 0.5 x 0.6 cm, volume 0.1 mL. Nodule characteristics: Composition: Solid (2). Echogenicity: Hypoechoic (2). Shape: Not taller than wide (0). Margins: Smooth (0). Echogenic Foci: None (0). ACR TI-RADS total points: 4 ACR TI-RADS category: 4 2. Location: Right mid to lower pole. Size: 0.7 x 0.3 x 0.7 cm, volume 0.1 mL. Nodule characteristics: Composition: Solid (2). Echogenicity: Hypoechoic (2). Shape: Not taller than wide (0). Margins: Lobulated (2). Echogenic Foci: None (0). ACR TI-RADS total points: 6 ACR TI-RADS category: 4 3. Location: Right mid pole. Size: 0.6 x 0.3 x 0.4 cm, volume 0.04 mL. Nodule characteristics: Composition: Solid (2). Echogenicity: Isoechoic (1). Shape: Not taller than wide (0). Margins: Ill-defined (0). Echogenic Foci: None (0). ACR TI-RADS total points: 3 ACR TI-RADS category: 3 4. Location: Left mid to upper pole. Size: 0.6 x 0.5 x 0.6 cm, volume or by 1 mL. Nodule characteristics: Composition: Solid (2). Echogenicity: Hypoechoic (2). Shape: Not taller than wide (0). Margins: Ill-defined (0). Echogenic Foci: None (0). ACR TI-RADS total points: 4 ACR TI-RADS category: 4 5. Location: Left lower pole. Size: 0.9 x 0.6 x 1.0 cm, volume 0.3 mL. Nodule characteristics: Composition: Solid/almost completely solid (2). Echogenicity: Isoechoic (1). Shape: Not taller than wide (0). Margins: Smooth (0). Echogenic Foci: None (0). ACR TI-RADS total points: 3 ACR TI-RADS category: 3 NODES: No lymphadenopathy is seen in the tissue surrounding the thyroid gland. US/US thyroid IMPRESSION: 1. Multinodular goiter, with no nodules exceeding 1.0 cm in diameter. Mild enlargement of the thyroid gland. There is a left lower pole TR category 3 nodule measuring at 1.0 cm maximally. No follow-up recommended. 2. Additional subcentimeter nodules as detailed above. No follow-up recommended. ACR TI-RADS RECOMMENDATION REFERENCE: Ultrasound-guided fine-needle aspiration, followup ultrasound, no further follow up. * TR1 (0 point) and TR2 (2 points): No FNA or follow up. * TR3 (3 points): FNA if more than or equal to 2.5 cm in maximum dimension, followup ultrasound in 1, 3 and 5 years if 1.5 to 2.4 cm in maximum dimension. * TR4 (4-6 points): FNA if more than or equal to 1.5 cm in maximum dimension, followup ultrasound in 1, 2, 3 and 5 years if 1 to 1.4 cm in maximum dimension. * TR5 (more than or equal to 7 points): FNA if more than or equal to 1 cm in maximum dimension, followup ultrasound every year for 5 years if 0.5 to 0.9 cm in maximum dimension. * TR3, TR4 or TR5 nodules that are below the size threshold for followup receive no follow up. Electronically signed by: Elroy Tamayo MD 08/14/2024 02:52 PM EDT
== END 2024-08-14 11:21 | disposition home or self-care (01) ==
LOC: HO.US 11:20
DX: E04.9 Nontoxic goiter, unspecified (principal)
CPT/HCPCS: 76536

== ENCOUNTER → 2024-08-14 11:23 | Outpatient (BNV) | payer OTHER, SELFPAY | PROVIDERS: Visit Provider Radiology Diagnostic Radiology | DX: E04.2 Nontoxic multinodular goiter (principal) | CPT/HCPCS: 76536 ==

== ENCOUNTER → 2024-08-26 10:53 | Outpatient (BNVA) | payer OTHER, SELFPAY | PROVIDERS: PCP Internal Medicine | DX: Z01.818 Encounter for other preprocedural examination (principal) ==

== ENCOUNTER → 2024-09-02 10:59 | Outpatient (REF) | payer OTHER, SELFPAY ==
--- NOTE | 2024-09-02 11:03 | ECG_ITS ---
Test Reason : PREPROC EXAM Blood Pressure : */* mmHG Vent. Rate : 60 BPM Atrial Rate : 60 BPM P-R Int : 152 ms QRS Dur : 84 ms QT Int : 386 ms P-R-T Axes : 5 -11 4 degrees QTcB Int : 386 ms Normal sinus rhythm Normal ECG When compared with ECG of 16-Sep-2020 07:37, No significant change was found Referred By: Sonia Billings Electronically Signed By: ORIANA THOMAS
--- OUTSIDE RECORDS SUMMARY | 2024-09-02 12:35 | XMS_ITS | Patient Health Record ---
Author Organization [facility] Address [address] [place] [address] Care Team Providers Care Physician Office Clin Asst Name Role Phone Irvin (RETIRED) Merlin EMANUEL Primary Care Provide r Unavailable Terence Alexandre Unavailable [phone] Reason For Referral No Information Medications Medication SIG (Take, Route, Frequency, Duration) Notes Start Date End Date Status Colyte with Flavor Packs 240 GM 1 ml one time Orally as directed for 1 day(s) 08/04/2011 Active Implanon 68mg Active Aspir-81 82mg Active amLODIPine Besylate 5mg 03/12/202403/12 Active Problems Problem Type SNOMED Code ICD Code Onset Dates Problem Status W/U Status Risk Notes Problem Family History of Cancer of Colon (Situation) (721547047) Family history of colon cancer (V16.0) Active confirmed Problem Colon cancer screening (463492229) Colon cancer screening (V76.51) Active confirmed Plan Of Treatment Future Test Test Name Order Date COLONOSCOPY 08/04/2011 Insurance Providers Payer Name Payer Address Payer Phone Subscriber Number Group Number Insured Name Patient Relationship to Insured Coverage Start Date Coverage End Date MEDICAID OF [employer] [address] [place] [phone] [id number] MARY STANFORD Self - patient is the insured Medical (General) History Medical History History ICD Code Denies [place],DM,CVA,Lung disease,renal dise ase HTN Surgical History Surgery Date(Month/Year) tonsillectomy
== END ==
LOC: HO.CARD 10:59
DX: Z01.818 Encounter for other preprocedural examination (principal)
CPT/HCPCS: 93005

== ENCOUNTER → 2024-09-02 11:03 | Outpatient (BNV) | payer OTHER, SELFPAY | PROVIDERS: Visit Provider Internal Medicine | DX: Z01.810 Encounter for preprocedural cardiovascular examination (principal) | CPT/HCPCS: 93010 ==

== ENCOUNTER 2024-09-05 06:43 | Outpatient (REF) | payer OTHER, SELFPAY ==
[2024-09-05 06:53] LABS: MANUAL DIFF FLAG NO
[2024-09-05 07:18] LABS: Basophils Absolute Auto 0.1 X10*3/uL (0.0-0.2); Basophils Percent Auto 0.9 % (0-2); Eosinophils Absolute Auto 0.2 X10*3/uL (0.0-0.4); Eosinophils Percent Auto 4.2 % (0-4); Hemoglobin 14.3 g/dl (12.0-16.0); Imm Gran Abs Auto 0.01 X10*3/uL (0.00-0.03); Imm Gran Pct Auto 0.2 % (0.0-0.4); Lymphocytes Absolute Auto 1.6 X10*3/uL (1.2-4.9); Mean Corpuscular HGB Conc 32.5 g/dl (31.0-35.0); Mean Corpuscular Hemoglobin 29.1 pg (27.0-33.0); Mean Corpuscular Volume 89.4 fL (80.0-98.0); Monocytes Absolute Auto 0.4 X10*3/uL (0.1-1.2); Monocytes Percent Auto 6.8 % (2-11); Neutrophils Absolute Auto 3.4 x10*3/uL (2.0-8.3); Neutrophils Percent Auto 59.9 % (45-73); Platelet Count 198 X10*3/uL (160-400); Red Blood Count 4.92 X10*6/uL (4.20-5.50); Red Cell Distribution Width 13.2 % (11.0-16.0); White Blood Count 5.7 X10*3/uL (4.8-10.8)
[2024-09-05 07:39] LABS: Estimated Average Glucose 103 mg/dL; Hemoglobin A1c % 5.2 % (<6.0)
[2024-09-05 07:51] LABS: Alanine Aminotransferase 20 U/L (0-31); Albumin Level 4.2 g/dL (3.5-5.0); Alkaline Phosphatase 97 U/L (39-117); Anion Gap 12 (12-20); Aspartate Amino Transferase 23 U/L (5-31); Bilirubin Total 0.5 mg/dL (0.0-1.0); Blood Urea Nitrogen 10 mg/dL (9-16); Calcium 9.2 mg/dL (8.4-10.2); Carbon Dioxide 28 mmol/L (22-29); Chloride 106 mmol/L (96-108); Cholesterol 213 mg/dL (<200); Estimated Glomerular Filt Rate > 60; Glucose Random 95 mg/dL (60-115); HDL Cholesterol 58 mg/dL (>40); LDL Cholesterol Calculated 137 mg/dL (<100); Potassium 3.9 mmol/L (3.3-5.1); Sodium 142 mmol/L (135-145); Total Protein 6.7 g/dL (6.5-8.0); Triglycerides 92 mg/dL (<150)
[2024-09-05 08:09] LABS: Free T4 (Free Thyroxine) 0.97 ng/dL (0.71-1.85); TSH reflex Free T4 2.96 uIU/mL (0.32-4.0)
== END 2024-09-05 06:44 | disposition home or self-care (01) ==
LOC: HO.LAB 06:43
DX: Z01.818 Encounter for other preprocedural examination (principal); Z13.220 Encounter for screening for lipoid disorders; E04.9 Nontoxic goiter, unspecified
CPT/HCPCS: 36415; 80053; 80061; 83036; 84439; 84443; 85025

== ENCOUNTER 2024-09-25 09:52 | Outpatient (AMB) | payer OTHER, SELFPAY ==
--- NOTE | 2024-09-25 10:05 | MHC.OFFVIS ---
Vital Signs 09/25/24 10:07 Height 5 ft 5 in Weight 245 lb BMI 40.8 Intake Visit Reasons: Pre-Op: R NISHI w/NE 09/30/24 Intake Note: Laura is a 58 year old female who presents today for a Total Joint Pre-Op. She is currently booked for a Right Total Hip Arthroplasty on 09/30/24. Pain management agreement reviewed and signed. Allergies No Known Allergies Allergy (Verified 09/25/24 10:08) Medication List - Last Reconciled 09/25/24 by Hanna Berman PA-C albuterol sulfate 90 mcg/actuation 2 puffs inhalation Q4-6H PRN amlodipine 10 mg PO BEDTIME aspirin (Adult Low Dose Aspirin) 81 mg PO BEDTIME cyanocobalamin (vitamin B-12) 1,000 mcg PO QAM ferrous gluconate 240 mg PO QAM [Raised toilet seat duration - 99 days] [SHOWER CHAIR Duration 99 days] vedolizumab (Entyvio) 300 mg IV Q6W 6 months walker Folding Front wheeled walker Duration 99 days zinc acetate (Galzin) 50 mg PO DAILY HPI Comments Details: Ms. Branham presents to the office today for preop visit. She is scheduled for right total hip arthroplasty with Dr. Beth. She continues to have ongoing pain and difficulty with ambulation in the right hip, which is affecting her quality of life; therefore, she has elected to move forward with surgery. [facility] Medical History (Updated 09/02/24 @ 10:11 by Nava Camacho RN) Ulcerative colitis Arthritis Thyroid nodule Pulmonary nodules Iron (Fe) deficiency anemia PONV (postoperative nausea and vomiting) Sleep apnea Impaired fasting blood sugar HTN (hypertension) Asthma Morbid obesity Surgical History History of hernia repair (~2020) History of hysterectomy Hx of tonsillectomy Hx of colonoscopy Family History Mother Vascular dementia Colon cancer Father No problems noted. 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 [employer] Cognitive needs: No Hearing needs: No Vision needs: No Review of Systems Const All systems reviewed & are unremarkable except as noted in HPI and below Physical Exam Vital Signs: BMI result Body Mass Index 40.8 Const General: cooperative, healthy appearing, comfortable, no acute distress, well developed and alert Orientation/consciousness: patient oriented x3 HEENT Head: Yes normal to inspection, Yes normocephalic and Yes atraumatic Eyes General: appearance normal, both eyes and all related structures Neck Neck: Yes normal visual inspection and Yes no lymphadenopathy Resp Effort & Inspection: normal respiratory effort and able to speak in complete sentences Cardio Rate: regular rate Peripheral pulses: Peripheral pulses 2+ throughout GI Inspection: Yes normal to inspection Palpation (GI): Soft to palpation Skin General skin exam: no rashes or lesions noted Neuro General: patient oriented x3 Extrem Other: Positive impingement test right hip. She walks with minimal gait antalgia however. 0-90 degrees motion is not painful. Psych Appearance: grossly normal Mental Status: mental status grossly normal Assessment & Plan Assessment & Plan (1) Primary osteoarthritis of right hip: Code(s): M16.11 - Unilateral primary osteoarthritis, right hip Category: Medical Plan: I discussed in detail the procedure and what to expect pre and post operatively. We discussed the risks, benefits and alternatives to the surgery as well as the rehabilitation course. The risks; which include, but are not limited to infection, bleeding, nerve injury, ongoing pain, swelling, and stiffness, perioperative risk of injury to bones and soft tissues, and blood clots. I?ve answered all questions and with their understanding they have consented to move forward with Right total hip arthroplasty with Dr. Beth Patient would like STR post op due to amount of stairs in house, she also lives alone She will be placed on ASA 325mg tabs po bid for post op use , denies h/o CA,DVT, smoking She is in the process of obtaining a walker Orders: Orders Type and Screen Today Z01.818 - Encounter for other preprocedural examination Coding Level of Care Code Est Pt Level 3 (73868) Complex EM visit Add On G2211 Diagnoses Primary osteoarthritis of right hip M16.11
[2024-09-25 10:07] VITALS: BMI 40.8
--- OUTSIDE RECORDS SUMMARY | 2024-09-25 10:17 | XMS_ITS | Patient Health Record ---
Author Organization [facility] Address [address] [place] [address] Care Team Providers Care Senior Project Manager Engineering Name Role Phone Irvin (RETIRED) Merlin EMANUEL Primary Care Provide r Unavailable Terence Alexandre Unavailable [phone] Reason For Referral No Information Medications Medication [...] Family History of Cancer of Colon (Situation) (189574873) Family history of colon cancer (V16.0) Active confirmed Problem Colon cancer screening (986550132) Colon cancer screening (V76.51) Active confirmed Plan Of Treatment Future Test Test Name Order Date COLONOSCOPY 08/04/2011 Insurance Providers Payer Name Payer Address Payer Phone Subscriber Number Group Number Insured Name Patient Relationship to Insured Coverage Start Date Coverage End Date MEDICAID OF [employer] [address] [place] [phone] [id number] MARY STANFORD Self - patient is the insured Medical (General) History Medical History History ICD Code Denies [place],DM,CVA,Lung disease,renal dise ase HTN Surgical History Surgery Date(Month/Year) tonsillectomy
== END 2024-09-25 11:20 | disposition home or self-care (01) ==
LOC: HO.HOS 09:53
PROVIDERS: PCP Internal Medicine; Visit Provider Physician Assistant
DX: M16.11 Unilateral primary osteoarthritis, right hip (principal)
CPT/HCPCS: 99024

== ENCOUNTER → 2024-09-25 09:52 | Outpatient (BNVA) | payer OTHER, SELFPAY | PROVIDERS: PCP Internal Medicine; Visit Provider Physician Assistant | DX: Z00.00 Encounter for general adult medical examination without abnormal findings (principal); I10 Essential (primary) hypertension; E66.01 Morbid (severe) obesity due to excess calories; Z68.41 Body mass index [BMI] 40.0-44.9, adult; K46.9 Unspecified abdominal hernia without obstruction or gangrene; K43.2 Incisional hernia without obstruction or gangrene; J45.20 Mild intermittent asthma, uncomplicated; M16.11 Unilateral primary osteoarthritis, right hip; G56.03 Carpal tunnel syndrome, bilateral upper limbs; E04.2 Nontoxic multinodular goiter; Z13.31 Encounter for screening for depression | CPT/HCPCS: 96127; 99212; 99396 ==

== ENCOUNTER 2024-09-25 13:55 | Outpatient (AMB) | payer OTHER, SELFPAY ==
--- NOTE | 2024-09-25 13:59 | A.OFFPC_ITS ---
Vital Signs 09/25/24 14:00 Height 5 ft 5 in Weight 241 lb BMI 40.1 BP 130/64 Blood Pressure Location Lt brachial Position Sitting Pulse 86 Pulse Source Pulse Oximeter Pulse Oximetry (%) 98 Oxygen Delivery Method Room Air Intake Visit Reasons: ROMEO Dr Dos Santos Help Desk Analyst Required: No Accompanied by: Self / Same As Patient Allergies No Known Allergies Allergy (Verified 09/25/24 14:17) Medication List - Last Reconciled 09/25/24 by Sonia Billings PA-C albuterol sulfate 90 mcg/actuation 2 puffs inhalation Q4-6H PRN amlodipine 10 mg PO BEDTIME aspirin (Adult Low Dose Aspirin) 81 mg PO BEDTIME cyanocobalamin (vitamin B-12) 1,000 mcg PO QAM ferrous gluconate 240 mg PO QAM [Raised toilet seat duration - 99 days] [SHOWER CHAIR Duration 99 days] vedolizumab (Entyvio) 300 mg IV Q6W 6 months walker Folding Front wheeled walker Duration 99 days zinc acetate (Galzin) 50 mg PO DAILY Tobacco use date assessed: 09/25/24 Dental Screening Dental Screen Date: 09/25/24 Did you have a dental visit in the last 12 months?: No Did you have a dental problem in the last 6 months where you did not have access to dental care?: No Was dental information given to patient?: No HPI ROMEO Dr Dos Santos HPI Details 58-year-old female with past medical his tory of morbid obesity, hypertension, asthma, pulmonary nodules last seen 07/2024 coming in for ROMEO Dr. Dos Santos. Presenting with a wellness check and management of chronic conditions. The patient has a history of thyroid nodules identified via ultrasound, with five nodules present. None of the nodules meet the criteria for biopsy or follow-up based on size and TRAD scores. The patient has a history of hypertension, currently well-managed with medication. Asthma is well Managed with albuterol as needed, though the patient reports infrequent use. The patient reports diff iculty staying asleep, though she falls asleep easily. She has not opted for medication due to concerns about waking up. mammogram: order placed colonoscopy: due this year [facility] Medical History Ulcerative colitis Arthritis Thyroid nodule Pulmonary nodules Iron (Fe) deficiency anemia PONV (postoperative nausea and vomiting) Sleep apnea Impaired fasting blood sugar HTN (hypertension) Asthma Morbid obesity Surgical History History of hernia repair (~2020) History of hysterectomy Hx of tonsillectomy Hx of colonoscopy Family History Mother Vascular dementia Colon cancer Father No problems noted. 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 1. Little interest or pleasure in doing things: not at all 2. Feeling down, depressed, or hopeless: not at all 3. Trouble falling or staying asleep, or sleeping too much: several days 4. Feeling tired or having little energy: several days 5. Poor appetite or overeating: not at all 6. Feeling bad about yourself - or that you are a failure or have let yourself or your family down: not at all 7. Trouble concentrating on things, such as reading the newspaper or watching television: not at all 8. Moving or speaking so slowly that other people could have noticed. Or the opposite - being so fidgety or restless that you have been moving around a lot more than usual: not at all 9. Thoughts that you would be better off or of hurting yourself in some way: not at all Total score: 2 Depression Screening Interpretation: Negative Depression Screening Done: Yes 70343 - PHQ-9 Billing: Yes Source: Developed by Drs. Terence Kenney, PerriTavares Combs and colleagues, with an educational an from [employer]. Thrive Questionnaire Date Thrive assessed: 09/22/24 I am a: Patient What is your living situation today?: I have a steady place to live Within the past 12 months, did the food you bought not last and you didn't have the money to get more?: Sometimes True Within the past 12 months, did you worry whether your food would run out before you got money to buy more?: Sometimes True Do you have trouble paying for medicines?: Yes Do you have trouble getting transportation to medical appointments?: No Do you have trouble paying your heating and electricity bill?: Yes Do you have trouble taking care of your child, family member or friend?: No Do you have trouble with day-to-day activities such as bathing, preparing meals, shopping, managing finances, etc.?: No Are you currently unemployed and looking for a job?: No Are you interested in more education?: No Please select the resources that you would like help with: None Currently or been in a relationship where the following occur: I choose not to answer THRIVE Score: 3 AUDIT C Alcohol Use Questionnaire (AUDIT-C) 1. How often do you have a drink containing alcohol?: 2-4 times a month Total Score: 2 TALISHA-7 AMB Questionnaire TALISHA-7 Date TALISHA - 7 assessed: 07/31/24 Feeling nervous, anxious, or on edge: 0 = Not at all Not being able to stop or control worryin = Not at all Worrying too much about different things: 1 = Several days Trouble relaxin = Several days Being so restless that it is hard to sit still: 0 = Not at all Becoming easily annoyed or irritable: 0 = Not at all Feeling afraid as if something awful might happen: 0 = Not at all Total TALISHA-7 score (0-4 normal; 5-9 mild; 10-14 moderate; 15-21 severe): 2 Source: Developed by Drs. Terence Kenney, Tavares Manfsield and colleagues, with an educational an from [employer]. TALISHA-7 Assessment Billing TALISHA-7 Assessment Tool: TALISHA-7 Assessment 50629 Review of Systems Const Denies body aches, Denies chills, Denies fever(s), Denies headache(s) and Denies poor appetite Eyes Reports no additional complaints ENT Denies dysphagia, Denies dizziness, Denies headache(s) and Denies odynophagia Card Denies chest pain, Denies syncope, Denies edema, Denies irregular heart rhythm and Denies dyspnea Resp Denies cough and Denies dyspnea GI Denies abdominal pain, Denies constipation, Denies dysphagia, Denies diarrhea, Denies nausea, Denies odynophagia and Denies vomiting Reports no additional complaints Musc Reports no additional complaints and Denies abnormal gait Skin/Breast Reports system reviewed and no additional complaints, except as documented Neuro Denies abnormal gait, Denies dizziness, Denies syncope and Denies headache(s) Psych Reports no additional complaints Physical exam (Primary Care) Vital Signs: Last Vital Signs Pulse 86 09/25/24 14:00 BP 130/64 09/25/24 14:00 Pulse Ox 98 09/25/24 14:00 Oxygen Delivery Method Room Air 09/25/24 14:00 BMI result Body Mass Index 40.1 Tobacco/Smoking Status: Tobacco use Status Tobacco use date assessed 09/25/24 09/25/24 14:07 Patient Tobacco Use Status Former Tobacco user 09/25/24 14:07 Tobacco use type Cigarette 09/25/24 14:07 e-Cigarette/Vaping Use Never Used 09/25/24 14:07 PHQ-9: PHQ-9 Score PHQ-9: Total score 2 09/25/24 14:24 Depression Screening Interpretation: Negative Thrive Assessment: Date of Thrive Assessment Date Thrive assessed 09/22/24 09/25/24 14:07 Currently or been in a relationship where the following occur: I choose not to answer Const General: cooperative, healthy appearing, comfortable and no acute distress Orientation/consciousness: patient oriented x3 HENMT Head: Yes normocephalic Ears: hearing grossly normal bilaterally General nose exam: Normal external nose present Face and sinus: Yes normal facial exam and Yes sinuses nontender Mouth: Normal oral and palatal mucosa present and tongue normal Throat: Yes posterior oropharynx normal Eyes General: appearance normal, both eyes and all related structures Conjunctivae: conjunctivae normal Pupils: Equal, round and reactive pupils present EOM: EOMs intact bilaterally and No Nystagmus present Neck Neck: Yes full ROM and Yes no lymphadenopathy Chest Chest palpation & inspection: normal inspection of the chest Resp Effort & Inspection: normal respiratory effort Auscultation: clear to auscultation bilaterally, no crackles, no rales, no rhonchi and no wheezes Cardio Rate: regular rate Rhythm: regular rhythm Peripheral pulses: radial pulses present and dorsalis pedis present GI Inspection: Yes normal to inspection and No Abdominal wall edema Palpation (GI): Soft to palpation, not firm and nontender Auscultation: normal bowel sounds Rectal Exam - Female: deferred General: Yes no CVA tenderness Back/Spine/Pelvis Back: no CVA tenderness Skin General skin exam: no rashes or lesions noted Neuro General: patient oriented x3 Cranial nerves: Yes Equal, round and reactive pupils present, Yes Midline tongue present, Yes Ability to bilaterally elevate shoulders present and No Nystagmus present Gait exam (Neuro): Normal gait present Extrem General: Yes normal to inspection, Yes full ROM and No edema Psych Speech and movement: Normal speech and movement present Affect: normal affect Attitude: cooperative Insight: Good insight present (Psych) Judgement: Good judgement present (Psych) Coding Level of Care Code Est Pt Prev Care 40-64y(42185) Diagnoses Hypertension I10 Morbid obesity E66.01 Abdominal hernia K46.9 Incisional hernia K43.2 Mild intermittent asthma without complication J45.20 Asthma complication type: uncomplicated Asthma persistence: intermittent Asthma severity: mild Primary osteoarthritis of right hip M16.11 Bilateral carpal tunnel syndrome G56.03 Multinodular thyroid E04.2 Annual physical exam Z00.00 Additional Codes TALISHA-7 Assessment Billing - TALISHA-7 Assessment Tool: TALISHA-7 Assessment 20770 ([id number]) PHQ-9 - 40260 - PHQ-9 Billing: Yes ([id number]) Assessment & Plan Assessment & Plan (1) Hypertension: Code(s): I10 - Essential (primary) hypertension Category: Medical Plan: Continue on current blood pressure medication. Avoid salt intake and encourage healthy diet and regular exercise. (2) Morbid obesity: Code(s): E66.01 - Morbid (severe) obesity due to excess calories Category: Medical Plan: Healthy diet and regular exercise is encouraged. (3) Abdominal hernia: Code(s): K46.9 - Unspecified abdominal hernia without obstruction or gangrene Category: Medical Plan: Patient has known abdominal hernia and incisional hernia. Opting for conservative management at this time. No evidence of incarceration and does not find them bothersome. (4) Incisional hernia: Code(s): K43.2 - Incisional hernia without obstruction or gangrene Category: Medical Plan: See above (5) Asthma: Comment: rescue inhaler only Code(s): J45.909 - Unspecified asthma, uncomplicated Category: Medical Qualifiers: Asthma complication type: uncomplicated Asthma persistence: intermitt ent Asthma severity: mild Qualified Code(s): J45.20 - Mild intermittent asthma, uncomplicated Plan: Asthma currently controlled on present medications. Continue on albuterol as needed. Avoid triggers such as allergies. (6) Primary osteoarthritis of right hip: Code(s): M16.11 - Unilateral primary osteoarthritis, right hip Category: Medical Plan: Patient to undergo right total hip replacement with Dr. Dueñas next week. (7) Bilateral carpal tunnel syndrome: Code(s): G56.03 - Carpal tunnel syndrome, bilateral upper limbs Category: Medical Plan: Plan to continue with night splints and may follow up with Orthopedics as needed. (8) Multinodular thyroid: Code(s): E04.2 - Nontoxic multinodular goiter Category: Medical Plan: Thyroid ultrasound showing multinodular thyroid I did review the results with the patient today. All TR score is not recommending follow up or biopsy. I reviewed with patient red flag symptoms and when to present for re-evaluation. She will follow up as needed for this concern. We will continue to monitor the thyroid levels as well. (9) Annual physical exam: Code(s): Z00.00 - Encounter for general adult medical examination without abnormal findings Category: Medical Plan: Patient is due for mammogram and colonoscopy. She is scheduling her for colo noscopy for December of this year and mammogram order was placed today. Her blood work is up-to-date and has been reviewed with her in his visit. Healthy diet and regular exercise is encouraged. Plan to follow up yearly or sooner as needed Plan The patient will continue to monitor thyroid nodules with regular ultrasounds, though current nodules do not require biopsy or follow-up. Management of hypertension will continue with current medication, ensuring regular monitoring of blood pressure levels. For osteoarthritis, the patient will manage symptoms with lifestyle modifications and pain management strategies as needed. The patient will undergo hip surgery, and post-operative care will be coordinated with orthopedics. Asthma management will continue with albuterol as needed, and the patient will ensure medication availability. The patient is advised to maintain dietary modifications to manage elevated LDL cholesterol levels. Monitoring of lung nodules will continue on a yearly basis. The patient is due for a colonoscopy and mammogram, with scheduling to occur after December. Carpal tunnel syndrome will be monitored for any progression of symptoms. The patient is encouraged to manage stress levels to prevent exacerbation of ulcerative colitis symptoms. This note was constructed using voice recognition software. While every effort has been made to ensure accuracy and hand sander, still areas may have been included sometimes these areas may affect the content or meeting of the given symptoms. Total time spent caring for the patient today was 30 minutes. This includes time spent before the visit reviewing the chart, time spent during the visit, and time spent after the visit and documentation. Patient was informed and verbally consented to the use of an ambient scribe for clinic note documentation during this visit. Orders: Orders MM tomosynthesis screening Today Z12.31 - Encounter for screening mammogram for malignant neoplasm of breast
[2024-09-25 14:00] VITALS: BP 130/64; PULSE 86; O2SAT 98; BMI 40.1
== END 2024-09-25 14:43 | disposition home or self-care (01) ==
LOC: HO.HMCH 13:56
DX: Z00.00 Encounter for general adult medical examination without abnormal findings (principal); I10 Essential (primary) hypertension; E66.01 Morbid (severe) obesity due to excess calories; Z68.41 Body mass index [BMI] 40.0-44.9, adult; K46.9 Unspecified abdominal hernia without obstruction or gangrene; K43.2 Incisional hernia without obstruction or gangrene; J45.20 Mild intermittent asthma, uncomplicated; M16.11 Unilateral primary osteoarthritis, right hip; G56.03 Carpal tunnel syndrome, bilateral upper limbs; E04.2 Nontoxic multinodular goiter

== ENCOUNTER 2024-09-30 05:57 | Day surgery (SDC) | payer OTHER, SELFPAY ==
[2024-09-02 10:18] VITALS: BP 144/71; PULSE 70; RESP 18; O2SAT 97; BMI 41.1
--- NOTE | 2024-09-02 10:31 | P.CONAN_ITS ---
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 Activity limited to pain DELROY: Mild, positional changed rx'd Asthma: Asymptomatic at this time, Very rare albuterol use PONV: Scopolamine patch effective in the past UC: Immunologic infusions PMFSH Active Problems Active Problems: All Active Problems Enlarged thyroid (Acute) Screening for hypercholesterolemia (Acute) Pre-op exam (Acute) Primary osteoarthritis of right hip (Acute) Right hip pain (Acute) Osteoarthritis of right knee (Acute) Osteoarthritis of left knee (Acute) Right hip pain (Acute) Malnutrition (Acute) Right knee pain (Acute) Left knee pain (Acute) Incisional hernia (Acute) Low back pain (Acute) Paresthesias (Acute) Hypertension (Acute) Stiffness of finger joint of right hand (Acute) Mallet deformity of right middle finger (Acute) Open wound of right middle finger due to dog bite (Acute) Colitis (Acute) Abdominal hernia (Acute) Abdominal pain (Acute) Rectal Hemorrhage (Acute) Exposure to COVID-19 virus (Acute) Pulmonary nodules (Acute) Asthma (Acute) Morbid obesity (Acute) Past Medical History Medical History H/O sigmoidoscopy Ulcerative colitis Arthritis Thyroid nodule Pulmonary nodules Iron (Fe) deficiency anemia PONV (postoperative nausea and vomiting) Sleep apnea Impaired fasting blood sugar HTN (hypertension) Asthma Morbid obesity Family History Family History Mother Vascular dementia Colon cancer Father No problems noted. Family history of problems with anesthesia: No Surgical History Surgical History History of hernia repair (~2020) History of hysterectomy Hx of tonsillectomy Hx of colonoscopy History of Problems with Anesthesia: Yes (PONV) Social History Social History Household Members: Children Housing: House Are you a primary infant childcare provider to a significant other at home: No Do you presently have visiting nurse or other home services: No Alcohol intake: current Alcohol intake frequency: a few times a month Patient Tobacco Use Status: Former Tobacco user Tobacco use type: Cigarette Years Smoked: 2 e-Cigarette/Vaping Use: Never Used Second Hand Smoke Exposure: No Use of substances other than those prescribed or required for medical reasons: Yes Substance Use Type Other:: edibles-advised to hold pre-op Substance Use Frequency: Occasionally Have you been hit, kicked, punched, or otherwise hurt by someone within the past year? 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 Cognitive needs: No Hearing needs: No Vision needs: No Meds Allergies Allergy/AdvReac Type Severity Reaction Status Date / Time No Known Allergies Allergy Verified 09/30/24 06:08 Home Medications ?Medication ?Instructions ?Recorded ?Confirmed ?Last Taken ?Type aspirin 81 mg tablet,delayed 81 mg PO BEDTIME 07/28/20 09/30/24 09/23/24 History release (Adult Low Dose Aspirin) amlodipine 10 mg tablet 10 mg PO BEDTIME 09/02/2409/29/24 History cyanocobalamin (vitamin B-12) 1,000 mcg PO QAM 5 09/30/24 09/29/24 History 1,000 mcg capsule Exam Height,Weight and Vital Signs: Height 5 ft 5 in Weight 112.037 kg Last Vital Signs Pulse 70 09/02/24 10:18 Resp 18 09/02/24 10:18 BP 144/71 H 09/02/24 10:18 Pulse Ox 97 09/02/24 10:18 O2 Del Method Room Air 09/02/24 10:18 Pertinent Lab Results Pertinent Lab Results: Lab Results 09/02/24 Range/Units 10:25 Nasal Screen MRSA (PCR) NEGATIVE (Negative) Nasal S. aureus Screen NEGATIVE (Negative) Nasal MRSA/S.aureus Interp SEE NOTE Narrative Narrative: EKG 08/2024 Vent. Rate : 60 BPM Atrial Rate : 60 BPM P-R Int : 152 ms QRS Dur : 84 ms QT Int : 386 ms P-R-T Axes : 5 -11 4 degrees QTcB Int : 386 ms Normal sinus rhythm Normal ECG When compared with ECG of 16-Sep-2020 07:37, No significant change was found Airway Mallampati Class: I TM Dist: >3cm Neck ROM: Full Loose/Missing/Broken Teeth: Yes (Right upper molar broken, side and back molars missing) Heart: RRR Lungs: CTAB Assessment and Plan Assessment Anesthesia Assessment: Anesthesia Plan Discussed and PAT Visit Final Anesthetic Review Family History of Problems with Anesthesia: No History of Problems with Anesthesia: Yes (PONV) Documented by User: Amilcar Fitch MD 09/30/24 11:03 [facility] Past Medical History Medical History H/O sigmoidoscopy Ulcerative colitis Arthritis Thyroid nodule Pulmonary nodules Iron (Fe) deficiency anemia PONV (postoperative nausea and vomiting) Sleep apnea Impaired fasting blood sugar HTN (hypertension) Asthma Morbid obesity Family History Family History Mother Vascular dementia Colon cancer Father No problems noted. Surgical History Surgical History History of hernia repair (~2020) History of hysterectomy Hx of tonsillectomy Hx of colonoscopy Social History Social History Household Members: Children Housing: House Are you a primary infant childcare provider to a significant other at home: No Do you presently have visiting nurse or other home services: No Alcohol intake: current Alcohol intake frequency: a few times a month Patient Tobacco Use Status: Former Tobacco user Tobacco use type: Cigarette Years Smoked: 2 e-Cigarette/Vaping Use: Never Used Second Hand Smoke Exposure: No Use of substances other than those prescribed or required for medical reasons: Yes Substance Use Type Other:: edibles-advised to hold pre-op Substance Use Frequency: Occasionally Have you been hit, kicked, punched, or otherwise hurt by someone within the past year? 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 Cognitive needs: No Hearing needs: No Vision needs: No Meds Allergies Allergy/AdvReac Type Severity Reaction Status Date / Time No Known Allergies Allergy Verified 09/30/24 06:08 Home Medications ?Medication ?Instructions ?Recorded ?Confirmed ?Last Taken ?Type aspirin 81 mg tablet,delayed 81 mg PO BEDTIME 07/28/20 09/30/24 09/23/24 History release (Adult Low Dose Aspirin) amlodipine 10 mg tablet 10 mg PO BEDTIME 09/02/2409/29/24 History cyanocobalamin (vitamin B-12) 1,000 mcg PO QAM 5 09/30/24 09/29/24 Histor y 1,000 mcg capsule Assessment and Plan Final Anesthetic Review NPO: Yes ASA Class: III Final Preanesthetic Review: No Changes in Pt Med Stat, Meds/Allgs Chart Reviewed, Consent Obtained/Reviewed and Anes Risks/Benef Reviewed Patient Risk: Intermediate Procedure Risk: Low Anesthetic Plan Anesthetic Plan: GA Disposition: Standard PACU
[2024-09-02 13:31] LABS: MRSA Nasal PCR NEGATIVE (Negative); SA Nasal PCR NEGATIVE (Negative)
[2024-09-30] VITALS (16 sets, daily range): BP systolic 102–144; BP diastolic 53–86; PULSE 51–90; RESP 12–19; TEMP 36.3–36.8; O2SAT 95–99; BMI 40.1; BMI 40.5
--- NOTE | ~2024-09-30 | XR_ITS ---
EXAMINATION: XR PELVIS CLINICAL INFORMATION: rt alicia COMPARISON: Correlated to CT dated February 23, 2023. TECHNIQUE: AP view right hip. FINDINGS: There is a metallic prosthesis with an acetabular and femoral component well-seated in the osseous structures without gross malalignment or acute cortical disruption no gross loosening. XR/XR pelvis 1-2V IMPRESSION: Status post total right hip arthroplasty prosthesis, intact. Electronically signed by: Tacho Murphy MD 09/30/2024 09:59 AM EDT
[2024-09-30] MEDS: oxyCODONE HCl ER 10 MG TAB.ER.12H PO ×2 (06:37→20:38)
[2024-09-30] MEDS: Lactated Ringers 1,000 ML 100 ML IVCONT ×2 (06:55→12:45)
--- NOTE | 2024-09-30 07:11 | PHA.MEDREC ---
Pharmacy Consult ? Medication Reconciliation Pharmacy has reviewed the medication reconciliation completed by nursing. Claims match med rec.
--- NOTE | 2024-09-30 07:42 | MHC.SHP ---
Pre-Procedural Eval Section A - 24 Hr Update-Section A only Date of Service: 09/30/24 The patient is an INPATIENT: No Changes since office visit: No Cold of Flu in the past 2 weeks, No New Medical Problems, No Changes in Medication and No Patient answered all questions The patient has been examined within 24 hours of the surgical procedure. The History & Physical has been completed within 30 days and I have reviewed it.: Yes Section B - Complete if H&P > 30 days Chief Complaint: Right NISHI Allergies: Allergies Allergy/AdvReac Type Severity Reaction Status Date / Time No Known Allergies Allergy Verified 09/30/24 06:08 Plan I have reviewed the history and physical and performed a pertinent physical examination on my patient. No changes have occurred unless specified. Time Spent With Patient Time: Total time managing care of this patient today ____ minutes.
--- NOTE | 2024-09-30 08:28 | P.DS_ITS ---
DS: Providers Provider Date of Service: 10/03/24 Date of admission: 09/30/24 06:03 Date of discharge: 10/03/24 Primary care physician: Devin Dos Santos MD DS: Summary Hospital Course Hospital Course: The patient underwent a successful right total hip arthroplasty, they were transferred to PACU and then to the floor to recover. During their stay, their vitals were stable, afebrile at 98.0. Labs were unremarkable, H/H 10.5/33.0. POD 1 they were started on Lovenox 40mg subQ QD x6 weeks for DVT ppx, they also received Physical Therapy services twice a day: WBAT, posterior precautions. Prior to discharge, their dressing was clean dry and intact, and the plan was to be discharged to SNF for additional physical therapy for safe discharge home. Bandage is to remain on at all times - If there are any concerns with the bandage including but not limited to: Excess staining, coming off, leaking, etc CALL ORTHOPEDICS - DO NOT REMOVE THE BANDAGE. Time Attestation Discharge Coordination Time (in mins): 30 Quality: Safe Use of Opioids Does Pt have an Active Cancer Diagnosis on the Problem List?: No Quality: Stroke Does the patient have a stroke diagnosis?: No Physical Exam Vital Signs: Vital Signs: Last Vital Signs Temp 97.6 F 09/30/24 07:01 Pulse 90 09/30/24 07:01 Resp 16 09/30/24 07:01 BP 144/86 H 09/30/24 07:01 Pulse Ox 99 09/30/24 07:01 O2 Del Method Room Air 09/30/24 07:01 BMI result Body Mass Index 40.1 Const: General: cooperative, healthy appearing and no acute distress Resp: Effort & Inspection: normal respiratory effort and able to speak in complete sentences Cardio: Rate: regular rate Peripheral pulses: Peripheral pulses 2+ throughout GI: Palpation (GI): Soft to palpation Skin: Lesions: no lesions Rashes: no rashes Extrem: Other: Rt hip dressing is c/d/i. Able to dorsi/plantar flex. Calf is supple and nont marion. Sensation intact. Pedal pulse intact. DS: Data Data Completed and Pending Pending studies at discharge: Pending at discharge 09/30/24 08:25 Surgical [PTH] Routine Discharge Plan Discharge Patient Disposition: Home, Self-Care Referrals: Hanna Berman PA-C [[facility], Orthopedics] - 10/16/24 2:00 pm Discharge Medications: New oxycodone 5 mg Tablet 5 mg PO Q4H PRN (Reason: Pain, Moderate(Pain Scale 4-6)) 7 Days Qty: 42 0RF Rx Instructions: Partial Fill upon patient request. celecoxib 200 mg Capsule 200 mg PO BID 30 Days Qty: 60 0RF docusate sodium 100 mg Capsule 100 mg PO BID 7 Days Qty: 14 0RF enoxaparin 40 mg/0.4 mL Syringe 40 mg subcut Q24H 42 Days Qty: 16.8 0RF acetaminophen 325 mg Tablet 650 mg PO Q6H PRN (Reason: Pain, Mild 1-3,Fever,Headache) 30 Days Qty: 240 0RF Continued Entyvio 300 mg recon soln 300 mg IV Q6W 180 Days Qty: 1 5RF Rx Instructions: give 300 mg IV q 6 weeks (DME) Raised toilet seat See Rx Instructions .ROUTE .MEDSUPPLY Qty: 1 0RF Rx Instructions: duration - 99 days (DME) walker Misc See Rx Instructions .MEDSUPPLY Qty: 1 0RF Rx Instructions: Folding Front wheeled walker Duration 99 days (DME) SHOWER CHAIR See Rx Instructions .ROUTE .MEDSUPPLY Qty: 1 0RF Rx Instructions: Duration 99 days ferrous gluconate 240 mg (27 mg iron) tablet 240 mg PO QAM Qty: 60 0RF Galzin 50 mg (zinc) capsule 50 mg PO DAILY Qty: 30 0RF amlodipine 10 mg tablet 10 mg PO BEDTIME cyanocobalamin (vitamin B-12) 1,000 mcg capsule 1,000 mcg PO QAM albuterol sulfate 90 mcg/actuation HFA aerosol inhaler 2 puff INHALATION Q4-6H PRN (Reason: Wheezing) Qty: 8.5 8RF Discontinued aspirin [Adult Low Dose Aspirin] 81 mg tablet,delayed release (DR/EC) 81 mg PO BEDTIME Discharge Orders: Discharge Order (Routine); Ordered 10/03/24 Ordered By: Erin Nicholson Diet: Advance to usual diet Activity on Discharge: Use cane or walker Stand Alone Forms: Patient Portal Discharge page Activity Restrictions/Additional Instructions: Physical Therapy for total hip arthroplasty: posterior precautions, gait training, ROM, strength Limit stair climbing No showering, no tub bath-keep dressing clean, dry and intact No driving x6 weeks Continue Aspirin for DVT ppx x 6 weeks Follow up with [facility] [place] Orthopedics in 2 weeks Print Language: Khmer
--- NOTE | 2024-09-30 09:37 | PM.OP ---
Brief Operative Note Date of Service: 09/30/24 Pre-op diagnosis: Right knee OA Post-op diagnosis: same Procedure: Right TKA Implants: Karina Accolade2 #3 127deg with +0 32 ceramic; Trident 2 50 with 2 acetabular screws and 10 deg posterior lipped liner Surgeon: Tony Beth MD Anesthesia: GETA and local Was an Stripper Preliminary used for this Procedure?: Yes Stripper Preliminary: Hanna Berman Estimated blood loss (mL): 200 IV fluids (mL): 850 Pathology: other Condition: stable Disposition: PACU
--- NOTE | 2024-09-30 09:43 | P.OP_ITS ---
Operative Note Operative Note Date of Service: 09/30/24 Narrative: Date of Service: 09/30/24 Pre-op diagnosis: Right knee OA Post-op diagnosis: same Procedure: Right NISHI Implants: [place] Accolade2 #3 127deg with +0 32 ceramic; Trident 2 50 with 2 acetabular screws and 10 deg posterior lipped liner Surgeon: Tony Beth MD Anesthesia: GETA and local Was an Race Board Attendant used for this Procedure?: Yes Race Board Attendant: Hanna Berman Estimated blood loss (mL): 200 IV fluids (mL): 850 Pathology: other Condition: stable Disposition: PACU Procedure in detail: Patient was brought into the operating room and placed in the right lateral decubitus position. All bony prominences were well padded and the limb was prepped and draped in standard sterile fashion. A time-out was called to identify proper site procedure proper surgeon IV antibiotics and 1 g of tranexamic acid were administered. I began by making a curvilinear incision over the posterolateral aspect of the greater trochanter. Dissection was taken down to the tensor fascia which was incised in line with the incision and a C harnley retractor was placed. Cautery was used to maintain hemostasis. The hip was internally rotated and the external rotators were identified. The vessels were cauterized and a full-thickness capsular/external rotator layer was developed starting just proximal to the piriformis. The posterior soft tissues were protected at all times. This layer was tagged and a dull Hohmann retractor was placed underneath the neck in the hip was dislocated. A neck cut was made 1 cm proximal to the lesser trochanter and the head and neck were removed and measured 46mm on the back table. The head was eburnated. I then removed the labrum and cauterized the fovea. I started with a 44 reamer and medialized to the inner table. I sequentially reamed up to a size 50 and impacted a 50mm cup at 45 degrees of inclination and 25 degrees of version. 2 acetabular screws were placed in the superior safe zone using standard AO technique. I then placed a 10 deg posterior lipped liner and turned my attention to the femur. I identified the piriformis insertion and used this as a starting point for my janina cutter. The medius tendon was protected with a Hibs retractor. A Charnley awl was inserted in the canal and a curved curette used to remove the lateral bone. I irrigated copiously. I then sequentially broached in the patient's natural version to a size 3 and placed my trial implants. I used a #3/127/+0 based on my pre-operative template. I removed all instrumentation and copiously irrigated. I placed my final femoral implant and again took the hip through range of motion and was satisfied with the stability and length. The final +0 implant was impacted in place and the hip reduced. I then irrigated copiously and placed 1 g of local tranexamic acid. I performed a capsular closure with 2.0 fiberwire, Yoli's fascia with 0 Vicryl, subcuticular with 2-0 Vicryl and the skin with rodrigue. Patient was placed into a sterile dressing. Patient was extubated brought to the recovery room in stable condition. There were no known complications. My vector control assistant SIL was utilized at every step in this case. She was utilized to help position the patient appropriately on the table. She was used to retract the soft tissues and suction the surgical field to allow for clear visualization. She was then utilized the dislocate the hip, hold the leg in a stable dislocated position while I made my neck cut. An additional vector control assistant was required to retract and protect the sciatic nerve during the neck cut portion of the procedure. My vector control assistant PA was then used to hold the acetabular retractors to allow for visualization of the acetabulum and protect the soft tissues. She was used to maintain a dry surgical field while I reamed the acetabulum. This included suction, irrigation and tissue retraction. Once the acetabular components were placed my vector control assistant held the dislocated femur and protected the abductor tendon while I broached the femur. An additional vector control assistant was used to protect the posterior soft tissues/sciatic nerve. My PA vector control assistant then was instrumental in helping me relocate the hip with the trial femoral components in place. My PA vector control assistant was then used to move the hip in a manner that allowed me to assess the stability of the trial components. Once this was done the PA vector control assistant was needed to re-dislocate the hip and trial a different head and then reduce the hip again. This process was then repeated to implant the final stem and then retrial the head. Once the head was relocated the vector control assistant PA was used the retract the soft tissues and keep the surgical field clear while I performed the capsular closure as well as the deep closure and the skin closure. The PA vector control assistant then helped move the patient off the table safely into her hospital bed.
--- NOTE | 2024-09-30 12:04 | HO.PM.IMCN ---
History of Present Illness Data of Consult Service Date: 09/30/24 Primary Care Provider: Devin Dos Santos MD [facility] Reason for consult: Medical management 58-year-old female with a past medical history of morbid obesity, hypertension, asthma, pulmonary nodules, and history of thyroid nodules is admitted for an elective right total hip replacement. Patient has been out of bed and voided. Denies any pain. Experiencing some postoperative nausea. She denies any shortness of breath, dizziness, lightheadedness or any other concerning symptoms. Positive CMS to right foot. Dressing clean dry and intact. Patient reports that she takes amlodipine at home, as well as some [id number] vitamins. Review of Systems Review of Systems: Denies any shortness of breath, chest pain, dizziness, lightheadedness, abdominal pain or discomfort, nausea vomiting or diarrhea PMFSH Medical History H/O sigmoidoscopy Ulcerative colitis Arthritis Thyroid nodule Pulmonary nodules Iron (Fe) deficiency anemia PONV (postoperative nausea and vomiting) Sleep apnea Impaired fasting blood sugar HTN (hypertension) Asthma Morbid obesity Family History Mother Vascular dementia Colon cancer Father No problems noted. Surgical History History of hernia repair (~2020) History of hysterectomy Hx of tonsillectomy Hx of colonoscopy Social History Household Members: None Housing: House Are you a primary disabilities caregiver to a significant other at home: No Do you presently have visiting nurse or other home services: No Alcohol intake: current Alcohol intake frequency: a few times a month Patient Tobacco Use Status: Former Tobacco user Tobacco use type: Cigarette Years Smoked: 2 e-Cigarette/Vaping Use: Never Used Second Hand Smoke Exposure: No Use of substances other than those prescribed or required for medical reasons: Yes Substance Use Type Other:: edibles-advised to hold pre-op Substance Use Frequency: Occasionally Have you been hit, kicked, punched, or otherwise hurt by someone within the past year? If so, by whom?: No Do you feel safe in your current relationship?: Yes Is there a partner from a previous relationship who is making you feel unsafe now?: No Are you made to feel afraid or neglected: No Spiritual Healthcare Practices: no Yarsanism Healthcare Practices: no Cultural Healthcare Practices: no Are you DNR?: No Advance Directives: No (daughter is primary contact) Advance Directives Information Provided: Yes (brochure) Advance Directives on File: No Do you have a plan to hurt others: No Plan Recently lost weight without trying: No Nutrition Risks: No Nutritional Risk Patient : No FDLMP: n/a Poor oral hygiene: No service: No Current occupational status: employed 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 Cognitive needs: No Hearing needs: No Vision needs: No Meds Allergies Allergy/AdvReac Type Severity Reaction Status Date / Time No Known Allergies Allergy Verified 09/30/24 06:08 Active Medications: Current Medications Acetaminophen (Acetaminophen 325 Mg Tablet) 650 mg PO Q6H PRN PRN Reason: Pain, Mild 1-3,fever,headache Albuterol Sulfate (Albuterol Sulfate 90 Mcg 8 Gm Inhaler) 2 puff INHALE Q4H PRN PRN Reason: Wheezing Celecoxib (Celecoxib 200 Mg Capsule) 200 mg PO BID ROBLES Cyanocobalamin (Cyanocobalamin (Vitamin B-12) 1,000 Mcg Tablet) 1,000 mcg PO DAILY ROBLES Docusate Sodium (Docusate Sodium 100 Mg Capsule) 100 mg PO BID ROBLES Enoxaparin Sodium (Enoxaparin Sodium 40 Mg/0.4 Ml Syringe) 40 mg SUBCUT Q24H ROBLES Hydromorphone HCl (Hydromorphone Hcl 0.5 Mg/0.5 Ml Syringe) 0.25 mg IVPUSH Q4H PRN; Protocol PRN Reason: Pain, Severe (Pain Scale 7-10) Lactated Ringer's (Lr) 1,000 mls @ 100 mls/hr IVCONT .Q10H ROBLES Stop: 10/01/24 08:00 Cefazolin Sodium/Dextrose (Ancef) 2 gm in 50 mls @ 100 mls/hr IV POSTOP@1400 ONE Stop: 09/30/24 14:29 Ondansetron HCl (Ondansetron Hcl 4 Mg/2 Ml Vial) 4 mg IVPUSH Q8H PRN PRN Reason: Nausea and Vomiting Oxycodone HCl (Oxycodone Hcl Immed Release 5 Mg Tablet) 5 mg PO Q4H PRN PRN Reason: Pain, Moderate(Pain Scale 4-6) Oxycodone HCl (Oxycodone Hcl Er 10 Mg Tab.Er.12h) 10 mg PO BID ROBLES Sodium Chloride (0.9 % Sodium Chloride Flush 3 Ml Syringe) 3 ml IVFLUSH QSHIFT [facility] Home Medications ?Medication ?Instructions ?Recorded ?Confirmed ?Last Taken ?Type aspirin 81 mg tablet,delayed 81 mg PO BEDTIME 07/28/20 09/30/24 09/23/24 History release (Adult Low Dose Aspirin) amlodipine 10 mg tablet 10 mg PO BEDTIME 09/02/24 09/30/24 09/29/24 History cyanocobalamin (vitamin B-12) 1,000 mcg PO QAM 09/02/24 09/30/24 09/29/24 History 1,000 mcg capsule Physical Exam Vital Signs and Narrative: Vital Signs: Last Vital Signs Temp 97.6 F 09/30/24 11:28 Pulse 78 09/30/24 11:28 Resp 18 09/30/24 11:28 BP 127/57 L 09/30/24 11:28 Pulse Ox 95 09/30/24 11:28 O2 Del Method Room Air 09/30/24 11:28 O2 Flow Rate 2 09/30/24 10:35 BMI result Body Mass Index 40.1 CONST: Alert and oriented, in NAD. Well nourished. HEENT: Normocephalic, atraumatic, MMM, Eyes clear, Neck supple RESP: Lungs clear, RRR even and regular HEART:,RRR, S1, S2. no edema GI:Abdomen Soft NT, ND. + BS times four :Deferred SKIN: Warm dry and intact, dressing to right hip clean dry and intact with no strike through drainage NEURO:CN II-XII Intact bilaterally, Sensation intact. Speech clear. Positive CMS PSYCH: Normal affect Results Imaging Radiologist's Impressions: Impressions Pelvis X-Ray 09/30/24 09:50 IMPRESSION: Status post total right hip arthroplasty prosthesis, intact. Electronically signed by: Tacho Murphy MD 09/30/2024 09:59 AM EDT Assessment and Plan (1) Hypertension: Status: Acute Plan Right hip total arthroplasty Plan per orthopedic surgery team Hypertension Recommend holding home amlodipine 10 mgs at hs, resume as indicated. BPS soft post operatively likely due to anesthesia. At time of visit 100/57 Thank you for allowing me to participate in the care of this patient. Signing off at this time. Please reconsult of any acute concerns or issues arise
[2024-09-30] MEDS: oxyCODONE HCl Immed Release 5 MG TABLET PO (18:28)
[2024-10-01] MEDS: Lactated Ringers 1,000 ML 100 ML IVCONT (00:11)
[2024-10-01] MEDS: oxyCODONE HCl Immed Release 5 MG TABLET PO ×4 (02:35→16:37)
[2024-10-01 04:00] VITALS: BP 126/77; PULSE 67; RESP 18; TEMP 36.4; O2SAT 96
[2024-10-01 05:50] LABS: MANUAL DIFF FLAG NO
[2024-10-01 05:59] LABS: Hematocrit 35.1 % (37.0-47.0); Hemoglobin 11.3 g/dl (12.0-16.0); Imm Gran Abs Auto 0.05 X10*3/uL (0.00-0.03); Imm Gran Pct Auto 0.5 % (0.0-0.4); Lymphocytes Absolute Auto 0.9 X10*3/uL (1.2-4.9); Mean Corpuscular HGB Conc 32.2 g/dl (31.0-35.0); Mean Corpuscular Hemoglobin 29.2 pg (27.0-33.0); Mean Corpuscular Volume 90.7 fL (80.0-98.0); NRBC Abs Auto 0.000 X10*3/uL (0.0-0.012); NRBC Pct Auto 0.0 /100WBC (0.0-0.2); Platelet Count 207 X10*3/uL (160-400); Red Blood Count 3.87 X10*6/uL (4.20-5.50); White Blood Count 10.0 X10*3/uL (4.8-10.8)
[2024-10-01 06:11] LABS: Anion Gap 10 (12-20); Blood Urea Nitrogen 13 mg/dL (9-16); Calcium 9.0 mg/dL (8.4-10.2); Carbon Dioxide 29 mmol/L (22-29); Chloride 105 mmol/L (96-108); Creatinine Clr Calc Pharmacy 105.4; Estimated Glomerular Filt Rate > 60; Potassium 4.2 mmol/L (3.3-5.1); Sodium 140 mmol/L (135-145)
[2024-10-01] MEDS: oxyCODONE HCl ER 10 MG TAB.ER.12H PO ×2 (06:59→20:19)
[2024-10-01 07:24] VITALS: BP 117/62; PULSE 72; RESP 16; TEMP 36.5; O2SAT 95
--- NOTE | 2024-10-01 07:40 | PM.PNORT ---
Subjective Subjective Date of Service: 10/01/24 Interval history: POD1 s/p RTHA Patient is resting in bed comfortably No overnight events Pain is managed she has been up and out of bed overnight - Difficulty with safe ambulation No additional complaints Physical Exam Vital Signs: Vital Signs: Last Vital Signs Temp 97.7 F 10/01/24 07:24 Pulse 72 10/01/24 07:24 Resp 16 10/01/24 07:24 BP 117/62 10/01/24 07:24 Pulse Ox 95 10/01/24 07:24 O2 Del Method Room Air 10/01/24 07:24 O2 Flow Rate 2 09/30/24 10:35 BMI result Body Mass Index 40.5 Const: General: cooperative, healthy appearing and no acute distress Resp: Effort & Inspection: normal respiratory effort and able to speak in complete sentences Cardio: Rate: regular rate Peripheral pulses: Peripheral pulses 2+ throughout GI: Palpation (GI): Soft to palpation Skin: Lesions: no lesions Rashes: no rashes Extrem: Other: rt hip dressing is c/d/i. Able to dorsi/plantar flex. Calf is supple and nontender. Sensation intact. Pedal pulse intact. Procedures Date of Service Date of Service: 10/01/24 Progress Note: A&P Assessment and plan (1) S/P total right hip arthroplasty: Status: Acute Plan Continue pain mgmnt Begin Lovenox for dvt ppx begin PT/OT for RTHA Patient is requesting [facility] for rehab placement - She is struggling with safe ambulation and has many stairs at home Dispo planning-Pending PT eval, pain mgmnt Time Spent With Patient Time: Total time managing care of this patient today ____ minutes. Quality Stroke Does the patient have a stroke diagnosis?: No VTE Prior VTE?: No VTE Risk Level:: Medical - moderate - high VTE Device Contraindication: N/A - Device Ordered VTE Drug Contraindication: N/A - Med Ordered
--- NOTE | 2024-10-01 08:51 | HO.POSTANES ---
Post Anesthesia Evaluation Post Anesthesia Evaluation Date of Service: 09/30/24 Vital Signs: Vital Signs Temp Pulse Resp BP Pulse Ox O2 Del Method 10/01/24 07:24 97.7 F 72 16 117/62 95 Room Air 10/01/24 04:00 97.6 F 67 18 126/77 96 Room Air Anesthesia: General Mental Status: Awake Pain Control: Satisfactory Nausea/Vomiting: None Hydration: Adequate Anesthesia-Related Issues: No Anes. Related Issues
--- NOTE | 2024-10-01 13:41 | MHC.CM.PN ---
PT LIVES ALONE IS INDEPENDENT HAD NO SERVICES PT IS AGREEABLE TO STR REFERALS MADE
[2024-10-01 15:18] VITALS: BP 131/60; PULSE 80; RESP 15; TEMP 36.6; O2SAT 95
[2024-10-01 19:38] VITALS: BP 134/61; PULSE 87; RESP 15; TEMP 36.8; O2SAT 97
[2024-10-01] MEDS: 0.9 % Sodium Chloride Flush 3 ML SYRINGE IVFLUSH (20:21)
[2024-10-02 04:00] VITALS: BP 114/57; PULSE 74; RESP 20; TEMP 36.2; O2SAT 94
[2024-10-02 06:27] LABS: MANUAL DIFF FLAG NO
[2024-10-02 06:32] LABS: Hematocrit 32.3 % (37.0-47.0); Hemoglobin 10.4 g/dl (12.0-16.0); Imm Gran Abs Auto 0.02 X10*3/uL (0.00-0.03); Imm Gran Pct Auto 0.3 % (0.0-0.4); Lymphocytes Absolute Auto 1.7 X10*3/uL (1.2-4.9); Mean Corpuscular HGB Conc 32.2 g/dl (31.0-35.0); Mean Corpuscular Hemoglobin 29.9 pg (27.0-33.0); Mean Corpuscular Volume 92.8 fL (80.0-98.0); NRBC Abs Auto 0.000 X10*3/uL (0.0-0.012); NRBC Pct Auto 0.0 /100WBC (0.0-0.2); Platelet Count 166 X10*3/uL (160-400); Red Blood Count 3.48 X10*6/uL (4.20-5.50); White Blood Count 6.3 X10*3/uL (4.8-10.8)
[2024-10-02 06:44] LABS: Anion Gap 11 (12-20); Blood Urea Nitrogen 14 mg/dL (9-16); Calcium 8.5 mg/dL (8.4-10.2); Carbon Dioxide 32 mmol/L (22-29); Chloride 104 mmol/L (96-108); Creatinine Clr Calc Pharmacy 111.8; Estimated Glomerular Filt Rate > 60; Potassium 4.3 mmol/L (3.3-5.1); Sodium 143 mmol/L (135-145)
[2024-10-02 08:00] VITALS: BP 129/62; PULSE 86; RESP 17; TEMP 36.7; O2SAT 97
[2024-10-02] MEDS: oxyCODONE HCl ER 10 MG TAB.ER.12H PO ×2 (08:18→20:46)
--- NOTE | 2024-10-02 08:19 | PM.PNORT ---
Subjective Subjective Date of Service: 10/02/24 Interval history: Postop day 2 status post right total hip arthroplasty Patient resting comfortably in bed this morning Pain well managed No acute events overnight No other acute complaints or concerns at this time Physical Exam Vital Signs: Vital Signs: Last Vital Signs Temp 98.0 F 10/02/24 08:00 Pulse 86 10/02/24 08:00 Resp 17 10/02/24 08:00 BP 129/62 10/02/24 08:00 Pulse Ox 97 10/02/24 08:00 O2 Del Method Room Air 10/02/24 08:00 O2 Flow Rate 2 09/30/24 10:35 BMI result Body Mass Index 40.5 Const: General: cooperative, healthy appearing and no acute distress Resp: Effort & Inspection: normal respiratory effort and able to speak in complete sentences Cardio: Rate: regular rate Peripheral pulses: Peripheral pulses 2+ throughout GI: Palpation (GI): Soft to palpation Skin: Lesions: no lesions Rashes: no rashes Extrem: Other: rt hip dressing is c/d/i. Able to dorsi/plantar flex. Calf is supple and nontender. Sensation intact. Pedal pulse intact. Procedures Date of Service Date of Service: 10/02/24 Progress Note: A&P Assessment and plan (1) S/P total right hip arthroplasty: Status: Acute Plan Continue pain mgmnt Continue Lovenox for dvt ppx Continue PT/OT for RTHA Patient is requesting [facility] for rehab placement - She is struggling with safe ambulation and has many stairs at home Dispo planning-Pending PT eval, pain mgmnt Time Spent With Patient Time: Total time managing care of this patient today ____ minutes. Quality Stroke Does the patient have a stroke diagnosis?: No VTE Prior VTE?: No VTE Risk Level:: Medical - moderate - high VTE Device Contraindication: N/A - Device Ordered VTE Drug Contraindication: N/A - Med Ordered
[2024-10-02] MEDS: oxyCODONE HCl Immed Release 5 MG TABLET PO ×2 (12:47→18:35)
--- NOTE | 2024-10-02 13:57 | MHC.CM.PN ---
PT AWARE [facility] NOT OFFERING AT THIS TIME REFERRAL BROADCAST TO LOCAL SNFS, [facility] IS THE ONLY SNF OFFERING THEY WILL SUBMIT FOR AUTH
[2024-10-02 16:00] VITALS: BP 106/56; PULSE 81; RESP 18; TEMP 36.6; O2SAT 95
[2024-10-02 20:00] VITALS: BP 120/57; PULSE 83; RESP 16; TEMP 36.9; O2SAT 98
[2024-10-02] MEDS: 0.9 % Sodium Chloride Flush 3 ML SYRINGE IVFLUSH (20:46)
[2024-10-03 03:46] VITALS: BP 142/63; PULSE 80; RESP 16; TEMP 36.6; O2SAT 97
[2024-10-03 06:00] LABS: MANUAL DIFF FLAG NO
[2024-10-03 06:13] LABS: Hematocrit 33.0 % (37.0-47.0); Hemoglobin 10.5 g/dl (12.0-16.0); Imm Gran Abs Auto 0.02 X10*3/uL (0.00-0.03); Imm Gran Pct Auto 0.4 % (0.0-0.4); Lymphocytes Absolute Auto 1.6 X10*3/uL (1.2-4.9); Mean Corpuscular HGB Conc 31.8 g/dl (31.0-35.0); Mean Corpuscular Hemoglobin 29.4 pg (27.0-33.0); Mean Corpuscular Volume 92.4 fL (80.0-98.0); NRBC Abs Auto 0.000 X10*3/uL (0.0-0.012); NRBC Pct Auto 0.0 /100WBC (0.0-0.2); Platelet Count 175 X10*3/uL (160-400); Red Blood Count 3.57 X10*6/uL (4.20-5.50); White Blood Count 5.4 X10*3/uL (4.8-10.8)
[2024-10-03 06:16] LABS: Anion Gap 9 (12-20); Blood Urea Nitrogen 9 mg/dL (9-16); Calcium 8.9 mg/dL (8.4-10.2); Carbon Dioxide 32 mmol/L (22-29); Chloride 104 mmol/L (96-108); Creatinine Clr Calc Pharmacy 131.3; Estimated Glomerular Filt Rate > 60; Potassium 4.4 mmol/L (3.3-5.1); Sodium 141 mmol/L (135-145)
[2024-10-03 07:40] VITALS: BP 121/59; PULSE 84; RESP 18; TEMP 36.7; O2SAT 95
[2024-10-03] MEDS: oxyCODONE HCl Immed Release 5 MG TABLET PO ×2 (08:16→13:40)
[2024-10-03] MEDS: oxyCODONE HCl ER 10 MG TAB.ER.12H PO (08:16)
[2024-10-03] MEDS: 0.9 % Sodium Chloride Flush 3 ML SYRINGE IVFLUSH (08:17)
--- NOTE | 2024-10-03 08:18 | PM.PNORT ---
Subjective Subjective Date of Service: 10/03/24 Interval history: Postop day 3 status post right total hip arthroplasty Patient resting comfortably in bed this morning Pain well managed No acute events overnight C/O difficulty with bowel movement No other acute complaints or concerns at this time Physical Exam Vital Signs: Vital Signs: Last Vital Signs Temp 98.0 F 10/03/24 07:40 Pulse 84 10/03/24 07:40 Resp 18 10/03/24 07:40 BP 121/59 L 10/03/24 07:40 Pulse Ox 95 10/03/24 07:40 O2 Del Method Room Air 10/03/24 07:40 O2 Flow Rate 2 09/30/24 10:35 BMI result Body Mass Index 40.5 Const: General: cooperative, healthy appearing and no acute distress Resp: Effort & Inspection: normal respiratory effort and able to speak in complete sentences Cardio: Rate: regular rate Peripheral pulses: Peripheral pulses 2+ throughout GI: Palpation (GI): Soft to palpation Skin: Lesions: no lesions Rashes: no rashes Extrem: Other: rt hip dressing is c/d/i. Able to dorsi/plantar flex. Calf is supple and nontender. Sensation intact. Pedal pulse intact. Procedures Date of Service Date of Service: 10/03/24 Progress Note: A&P Assessment and plan (1) S/P total right hip arthroplasty: Status: Acute Plan Continue pain mgmnt Continue Lovenox for dvt ppx Continue PT/OT for RTHA Added Milk of Mag for constipation Patient requires rehab - Case management following - She is struggling with safe ambulation and has many stairs at home Dispo planning-Pending rehab placement, PT, pain mgmnt Time Spent With Patient Time: Total time managing care of this patient today ____ minutes. Quality Stroke Does the patient have a stroke diagnosis?: No VTE Prior VTE?: No VTE Risk Level:: Medical - moderate - high VTE Device Contraindication: N/A - Device Ordered VTE Drug Contraindication: N/A - Med Ordered
[2024-10-03] MEDS: Milk of Magnesia 30 ML ORAL.SUSP 15 ML PO (09:42)
--- NOTE | 2024-10-03 13:41 | MHC.CM.PN ---
PT IS AWARE [facility] HAS INSURANCE AUTH SHE WILL BE TRANSPORTED [facility] AT 1400 HOURS
[2024-10-03 13:45] VITALS: BP 136/71; PULSE 88; RESP 17; TEMP 36.3; O2SAT 96
== END 2024-10-03 14:03 | disposition home or self-care (01) ==
LOC: HO.SSS 05:57 → HO.SSSA 08:28 → HO.S3 15:09
PROVIDERS: Absent Provider Physician Assistant; PCP Internal Medicine; Visit Provider Orthopaedic Surgery
PROC: (CPT 27130; principal; 2024-09-30 07:30)
DX: M16.11 Unilateral primary osteoarthritis, right hip (principal); R26.2 Difficulty in walking, not elsewhere classified; K91.89 Other postprocedural complications and disorders of digestive system; R11.0 Nausea; D50.9 Iron deficiency anemia, unspecified; I10 Essential (primary) hypertension; R73.01 Impaired fasting glucose; R91.8 Other nonspecific abnormal finding of lung field; J45.909 Unspecified asthma, uncomplicated; E04.2 Nontoxic multinodular goiter; E66.01 Morbid (severe) obesity due to excess calories; Z68.41 Body mass index [BMI] 40.0-44.9, adult; G47.33 Obstructive sleep apnea (adult) (pediatric); Z79.82 Long term (current) use of aspirin; Z79.899 Other long term (current) drug therapy; Z98.890 Other specified postprocedural states; Z87.891 Personal history of nicotine dependence
CPT/HCPCS: 27130; 36415; 72170; 80048; 85025; 86850; 86900; 86901; 87640; 87641; 88304; 88311; 97110; 97116; 97161; 97165; 97530; 97535; C1713; C1776; J0131; J0690; J1171; J1650; J2003; J2405; J2704; J2765; J2795; J3010; J7120

== ENCOUNTER 2024-09-30 06:03 | Outpatient (BNV) | payer OTHER, SELFPAY | END 2024-09-30 09:32 | PROVIDERS: Absent Provider Physician Assistant; Admitting Provider Physician Assistant; PCP Internal Medicine; Visit Provider Radiology Diagnostic Radiology | DX: M16.11 Unilateral primary osteoarthritis, right hip (principal) | CPT/HCPCS: 72170 ==

== ENCOUNTER → 2024-09-30 06:03 | Outpatient (BNV) | payer OTHER, SELFPAY | PROVIDERS: Absent Provider Physician Assistant; Admitting Provider Physician Assistant; PCP Internal Medicine; Visit Provider Nurse Practitioner Family | DX: I10 Essential (primary) hypertension (principal) | CPT/HCPCS: 99221 ==

== ENCOUNTER → 2024-09-30 06:03 | Outpatient (BNV) | payer OTHER, SELFPAY | PROVIDERS: Absent Provider Physician Assistant; Admitting Provider Physician Assistant; PCP Internal Medicine; Visit Provider Orthopaedic Surgery | DX: Z47.1 Aftercare following joint replacement surgery (principal); Z96.641 Presence of right artificial hip joint | CPT/HCPCS: 27130; 99024 ==

== ENCOUNTER 2024-10-16 13:51 | Outpatient (AMB) | payer OTHER, SELFPAY ==
--- OUTSIDE RECORDS SUMMARY | 2024-10-16 13:57 | XMS_ITS ---
Author Organization [facility] Care Team Providers Care Data Systems Manager Name Role Phone Mari Sarah Unavailable Unavailable Rhett OPTOMETRIST ASSISTANT, Bess Torres Unavailable Unavailable Terri Calderon Unavailable Allergies and adverse reactions No Known Allergies Care Team Name Role Address Phone Organization Dates Mari Sarah PCP [address] (Office): : [facility] 10/03/2024 - 10/15/2024 Bess Delaney NP [address] [place] [address] (Office): [facility] 10/03/2024 - 10/15/2024 Terri Calderon MA, [facility] 10/03/2024 - 10/15/2024 Goals Section Goals Description Status Target Date Laura has a goal to return h ome with services in place by the next review date. Active 10/17/2024 Laura will be free from disc omfort or adverse reactions related to blood thinner use through the review date. Active 10/17/2024 Laura will be free of falls through the review d ate. Active 10/17/2024 Laura will improve current l evel of function in self-care ADLs through the review date. Laura will be able to reach discharge goals set by therapy. Active 10/17/2024 Laura will increase level of mobility by working with therapy on discharge goals through the next review date. Active 10/18/19 Laura will maintain or devel op clean and intact skin by the review date. Active 10/17/2024 Laura will not have an inter ruption in normal activities due to pain through the review date. Active 10/17/2024 Laura will remain free of co mplications related to immobility, including contractures, thrombus formation, skin-breakdown, fall related injury through the next review date. Active Laura will verbalize adequat e relief of pain through the review date. Active 10/17/2024 Laura's Advanced Directives will be honored thro [facility] next review. Active 10/17/2024 Laura's surgical wound of the R hip will be heal ed by review date. Active 10/17/2024 Functional Status Code Name Recorded Time Value Entered By Chair/iit-ch-yhgaq transfer 10/14/2024 Independent atriplett Eating 10/14/2024 Setup or clean-up assistance atriplett Lower body dressing 10/14/2024 Setup or clean-up ass istance atriplett Lying to sitting on side of bed 10/14/2024 Independe nt atriplett Oral hygiene 10/14/2024 Setup or clean-up assistance atriplett Personal hygiene 10/14/2024 Independent atriplett Roll left and right 10/14/2024 Independent atriplet t Shower/bathe self 10/14/2024 Not assessed atriplett Sit to lying 10/14/2024 Independent atriplett Sit to stand 10/14/2024 Independent atriplett Toilet transfer 10/14/2024 Independent atriplett Toileting hygiene 10/14/2024 Independent atriplett Upper body dressing 10/14/2024 Independent atriplet t Wheel 150 feet 10/14/2024 Not assessed atriplett Wheel 50 feet with two turns 10/14/2024 Not assessed atriplett Immunizations Immunization Status Vaccine Details Vaccine Code CodeSystem Date Notes Influenza-High Dose(Fluzone) completed created date: 10/03/2024 administer ed date: 03/01/2024 PVC20 cancelled Pneumococcal conjugate vaccine 20-valent (PCV20), polysaccharide [id number] conjugate, adjuvant, preservative free 216 CVX created date: 10/13/2024 consent date: 10/13/2024 Educated by on 10/13/2024 Davey Booster cancelled SARS-COV-2 (COVID-19) vaccine, mRNA, spike protein, LNP, preservative free, gt-sucrose, 30 mcg/0.3 mL dose 309 CVX created date: 10/13/2024 consent date: 10/13/2024 Educated by on 10/13/2024 Medications Section Medication Name Status Code CodeSystem Dose Route Frequency Admin Type Sig Text Start Date End Date Ferrous Gluconate Oral Tablet 239 (27 Fe) MG active 1 tablet Oral one time a day Routine Give 1 tablet by mouth one time a day for supple ment 2024 - amLODIPine Besylate Oral Tablet 10 MG active 810141 RXNORM 10 mg Oral one time a day Routine Give 10 mg by mouth one time a day for HTN 2024 - Galzin Oral Capsule 50 MG active 834145 RXNORM 50 mg Oral one time a day Routine Give 50 mg by mouth one time a day for supple ment 2024 - oxyCODONE HCl Oral Tablet 5 MG aborted 175963 1 RXNORM 5 mg Oral as needed PRN Give 5 mg by mouth every 4 hours as needed for pain for 7 Days 10/10 CeleBREX Oral Capsule 200 MG active 156443 RXNORM 200 mg Oral two times a day Routine Give 200 mg by mouth two times a day for pain for 30 Days 11/03 Lovenox Injection Solution Prefilled Syringe 40 MG/0.4ML active 141667 RXNORM 40 mg Subcuta neous one time a day Routine Inject 40 mg subcut aneous ly one time a day for antico agulat ion for 42 Days 11/15 Colace Oral Capsule 100 MG complete d 706007 6 RXNORM 100 mg Oral two times a day Routine Give 100 mg by mouth two times a day for consti pation for 7 Days 10/11 Cyanocobalami n Oral Tablet active 1000 mcg Oral one time a day Routine Give 1000 mcg by mouth one time a day for supple ment 2024 - Albuterol Sulfate HFA Inhalation Aerosol Solution 108 (90 Base) MCG/ACT active 947871 RXNORM 2 puff Inhalat ion as needed PRN 2 puff inhale orally every 4 hours as needed for wheeze or sob 2024 - Fleet Enema Enema 7-19 GM/118ML active 928606 RXNORM 1 dose Rectal as needed PRN Insert 1 dose rectal ly as needed for Consti pation (Step 3) as needed if no bowel moveme nt for 8 hours after bisaco dyl suppos itory. 2024 - Milk of Magnesia Suspension 400 MG/5ML active 212068 RXNORM 30 ml Oral as needed PRN Give 30 ml by mouth as needed for Consti pation (Step 1) As needed if no bowel moveme nt for three days. (Do not use for Hemodi alysis patien ts). 2024 - Acetaminophen Tablet 325 MG active 882155 RXNORM 2 tablet Oral as needed PRN Give 2 tablet by mouth every 6 hours as needed for Pain Pain Total dosage for acetam inophe n and medica tions that contai n acetam inophe n should not exceed 3 grams / 24 hours. AND Give 2 tablet by mouth every 6 hours as needed for Fever greate r than 100.0F Total dosage for acetam inophe n and medica tions that contai n acetam inophe n should not exceed 3 grams / 24 hours. 2024 - 507829 RXNORM 2 tablet Oral as needed PRN Give 2 tablet by mouth every 6 hours as needed for Pain Pain Total dosage for acetam inophe n and medica tions that contai n acetam inophe n should not exceed 3 grams / 24 hours. AND Give 2 tablet by mouth every 6 hours as needed for Fever greate r than 100.0F Total dosage for acetam inophe n and medica tions that contai n acetam inophe n should not exceed 3 grams / 24 hours. 2024 - Bisacodyl Suppository 10 MG active 423882 RXNORM 1 suppos itory Rectal as needed PRN Insert 1 suppos itory rectal ly as needed for If no bowel moveme nt for 8 hours after Milk of Magnes ia 07/25/ 2025 - oxyCODONE HCl Oral Tablet 5 MG active 732961 1 RXNORM 5 mg Oral as needed PRN Give 5 mg by mouth every 8 hours as needed for pain for 7 Days 10/17 Mental Status Section Date Assessment Total Score Description 10/09/2024 BIMS 15 cognitively int act CAM 0 No delirium ind icated PHQ-9 00 Problems Problem # Description Date of onset Resolved Date Code CodeSystem Concern Status 1 AFTERCARE FOLLOWING JOINT REPLACEMENT SURGERY 10/03/[address] active 2 ANEMIA, UNSPECIFIED 10/03/[address] active 3 ANXIETY DISORDER, UNSPECIFIED 10/03/[address] active 4 ESSENTIAL (PRIMARY) HYPERTENSION 10/03/[address] active 5 MORBID (SEVERE) OBESITY DUE TO EXCESS CALORIES 10/03/[address] active 6 NONTOXIC SINGLE THYROID NODULE 10/03/[address] active 7 OTHER ULCERATIVE COLITIS WITHOUT COMPLICATIONS 10/03/[address] active 8 PRESENCE OF RIGHT ARTIFICIAL HIP JOINT 10/03/[address] active 9 SLEEP APNEA, UNSPECIFIED 10/03/[address] active 10 SOLITARY PULMONARY NODULE 10/03/[address] active 11 UNILATERAL PRIMARY OSTEOARTHRITIS, RIGHT HIP 10/03/[address] active 12 UNSPECIFIED ABDOMINAL HERNIA WITHOUT OBSTRUCTION OR GANGRENE 10/03/[address] active 13 UNSPECIFIED ABDOMINAL PAIN 10/03/[address] active 14 UNSPECIFIED ASTHMA, UNCOMPLICATED 10/03/[address] active 15 UNSTEADINESS ON FEET 10/03/[address] active 16 WEAKNESS 10/03/[address] active Reason for Referral No Reasons for Referral Entered Social History Social History Observation Description Start Date End Date Code Code System Current Smoking Status Tobacco smoking consumption unknown 814515408 SNOMED CT Sex Assigned At Female 1965 37273-3 [facility] Gender Identity Vital Signs Code Code System Vitals Name Values and Units Timing Information 79441-6 LOINC Pain Level Value=0.0 10/15/2024 9279-1 INC Respiratory Rate Value=18.0 Units=/m in 10/14/2024 8462-4 [facility] Blood Pressure-Diastolic Value=88 Un its=mmHg 10/14/2024 8480-6 [facility] Blood Pressure-Systolic Lggxx=193 Un its=mmHg 10/14/2024 8310-5 [facility] Body Temperature Value=97.2 Units= F 10/14/2024 8867-4 [facility] Heart rate Value=73.0 Units=/min 07/2024 29458-9 [facility] O2 % BldC Oximetry Value=98.0 Units= % 10/14/2024 37354-2 [facility] Weight Pwgjr=026.2 Units=Lbs 06/2024 8302-2 [facility] Height Value=65.0 Units=Inches 10/04/2024
--- OUTSIDE RECORDS SUMMARY | 2024-10-16 13:57 | XMS_ITS | Patient Health Record ---
Author Organization [facility] Address [address] [place] [address] Care Team Providers Care Director Power Name Role Phone Irvin (RETIRED) Merlin EMANUEL Primary Care Provide r Unavailable Terence Alexandre Unavailable [phone] Reason For Referral No Information Medications Medication [...] Family History of Cancer of Colon (Situation) (199541994) Family history of colon cancer (V16.0) Active confirmed Problem Colon cancer screening (V76.51) Active confirmed Plan Of Treatment Future Test Test Name Order Date COLONOSCOPY 08/04/2011 Insurance Providers Payer Name Payer Address Payer Phone Subscriber Number Group Number Insured Name Patient Relationship to Insured Coverage Start Date Coverage End Date [employer] [address] [place] [id number] MARY STANFORD Self - patient is the insured Medical (General) History Medical History History ICD Code Denies RI,DM,CVA,Lung disease,renal dise ase HTN Surgical History Surgery Date(Month/Year) tonsillectomy
--- NOTE | 2024-10-16 14:07 | A.OFFVIS_ITS ---
Intake Visit Reasons: 2WKPO: R NISHI w/NE 09/30/24 Intake Note: Daniel rpeorts she s doing well, at night discomfort Allergies No Known Allergies Allergy (Verified 09/30/24 06:08) HPI HPI 2WKPO: R NISHI w/NE 09/30/24: Details: 58-year-old female returns to the office today 2 weeks status post right total hip arthroplasty on 09/30/[address] Beth. She was just discharged from short-term rehab and is back at home. Magda MYLES is getting set up for home therapy. She continues to ambulate with a walker. She is also taking Lovenox q.d.. [facility] Medical History H/O sigmoidoscopy Ulcerative colitis Arthritis Thyroid nodule Pulmonary nodules Iron (Fe) deficiency anemia PONV (postoperative nausea and vomiting) Sleep apnea Impaired fasting blood sugar HTN (hypertension) Asthma Morbid obesity Surgical History History of hernia repair (~2020) History of hysterectomy Hx of tonsillectomy Hx of colonoscopy Family History Mother Vascular dementia Colon cancer Father No problems noted. 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 No erythema. Mild swelling. Calf supple and nontender neurovascularly intact. Assessment & Plan Assessment & Plan (1) S/P total right hip arthroplasty: Code(s): Z96.641 - Presence of right artificial hip joint Category: Surgical Plan: Tarun removed today Steri-Strips applied the patient will continue with home VNA services for physical therapy. She will continue with her Lovenox until she is 6 weeks postop. And then she can resume her baby aspirin. She has an appo intment with Dr. Beth on 11/06 for routine postop appointment she will see us back sooner if needed. Coding Level of Care Code Global (85413) Diagnoses S/P total right hip arthroplasty Z96.641
== END 2024-10-16 15:19 | disposition home or self-care (01) ==
LOC: HO.HOS 13:51
PROVIDERS: PCP Internal Medicine; Visit Provider Physician Assistant
DX: Z96.641 Presence of right artificial hip joint (principal)
CPT/HCPCS: 99024

== ENCOUNTER → 2024-10-16 13:51 | Outpatient (BNVA) | payer OTHER, SELFPAY | PROVIDERS: PCP Internal Medicine; Visit Provider Physician Assistant | DX: M16.11 Unilateral primary osteoarthritis, right hip (principal); Z96.641 Presence of right artificial hip joint; Z98.890 Other specified postprocedural states | CPT/HCPCS: 99212 ==

== ENCOUNTER 2024-10-16 14:52 | Outpatient (AMB) | payer OTHER, SELFPAY ==
[2024-10-16 14:55] VITALS: BP 110/60; PULSE 83; RESP 18; TEMP 36.3; O2SAT 94; BMI 44.0
--- NOTE | 2024-10-16 14:55 | MHC.PC.OV ---
Vital Signs 10/16/24 14:55 Height 5 ft 5 in Weight 264 lb 8.875 oz BMI 44.0 BP 110/60 Blood Pressure Location Lt brachial Position Sitting Respiration 18 Pulse 83 Pulse Source Pulse Oximeter Temp 97.3 F Temp Source Temporal Artery Scan Pulse Oximetry (%) 94 Oxygen Delivery Method Room Air Intake Visit Reasons: [facility] 10/15 Field Examiner Required: No Accompanied by: Self / Same As Patient Allergies No Known Allergies Allergy (Verified 10/16/24 15:31) Medication List - Last Reconciled 10/16/24 by NANI Kingston albuterol sulfate 90 mcg/actuation 2 puffs inhalation Q4-6H PRN amlodipine 10 mg PO BEDTIME celecoxib 200 mg PO BID celecoxib mg PO BID cyanocobalamin (vitamin B-12) 1,000 mcg PO QAM docusate sodium 100 mg PO DAILY enoxaparin 40 mg subcut Q24H ferrous gluconate 240 mg PO QAM oxycodone 5 mg PO Q4H PRN 7 days [Raised toilet seat duration - 99 days] [SHOWER CHAIR Duration 99 days] vedolizumab (Entyvio) 300 mg IV Q6W 6 months walker Folding Front wheeled walker Duration 99 days zinc acetate (Galzin) 50 mg PO DAILY Tobacco use date assessed: 10/16/24 Dental Screening Dental Screen Date: 10/16/24 Did you have a dental visit in the last 12 months?: Yes Did you have a dental problem in the last 6 months where you did not have access to dental care?: No Was dental information given to patient?: No HPI [facility] 10/15 HPI Details The patient is a 58-year-old female presenting for postoperative care and medication management following recent surgery (Elective Right Hip Surgery) with Dr. Beth. The patient reports being prescribed Lovenox 40 mg once daily as an anticoagulant therapy following her hospital stay and subsequent rehabilitation. She transitioned from the hospital to a rehabilitation facility, where she continued her medication regimen. For pain management, the patient was prescribed Oxycodone, which she used sparingly, noting that she only took it when necessary due to pain from physical therapy and occupational therapy activities. She has also been advised to use NSAIDs for inflammation, specifically mentioning Celecoxib as part of her regimen. Patient reports that she is coming from Orthopedics. Her rodrigue were removed Steri-Strips are in place no signs or symptoms of infection. The patient we will be followed by A services for physical therapy. The patient is on Lovenox 40 mg injection with plans to continue 6 weeks post-op. After this she could resume her baby aspirin. [facility] Medical History Hypertension H/O sigmoidoscopy Ulcerative colitis Arthritis Thyroid nodule Pulmonary nodules Iron (Fe) deficiency anemia PONV (postoperative nausea and vomiting) Sleep apnea Impaired fasting blood sugar HTN (hypertension) Asthma Morbid obesity Surgical History History of hernia repair (~2020) History of hysterectomy Hx of tonsillectomy Hx of colonoscopy Family History Mother Vascular dementia Colon cancer Father No problems noted. 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 1. Little interest or pleasure in doing things: not at all 2. Feeling down, depressed, or hopeless: not at all 3. Trouble falling or staying asleep, or sleeping too much: several days 4. Feeling tired or having little energy: several days 5. Poor appetite or overeating: not at all 6. Feeling bad about yourself - or that you are a failure or have let yourself or your family down: not at all 7. Trouble concentrating on things, such as reading the newspaper or watching television: not at all 8. Moving or speaking so slowly that other people could have noticed. Or the opposite - being so fidgety or restless that you have been moving around a lot more than usual: not at all 9. Thoughts that you would be better off or of hurting yourself in some way: not at all Total score: 2 Depression Screening Interpretation: Negative Depression Screening Done: Yes Source: Developed by Drs. Terence Kenney, Perri Coy, Tavares Stallworth and colleagues, with an educational an from [employer]. Thrive Questionnaire Date Thrive assessed: 10/16/24 I am a: Patient What is your living situation today?: I have a steady place to live Within the past 12 months, did the food you bought not last and you didn't have the money to get more?: Sometimes True Within the past 12 months, did you worry whether your food would run out before you got money to buy more?: Sometimes True Do you have trouble paying for medicines?: Yes Do you have trouble getting transportation to medical appointments?: No Do you have trouble paying your heating and electricity bill?: Yes Do you have trouble taking care of your child, family member or friend?: No Do you have trouble with day-to-day activities such as bathing, preparing meals, shopping, managing finances, etc.?: No Are you currently unemployed and looking for a job?: No Are you interested in more education?: No Please select the resources that you would like help with: None Currently or been in a relationship where the following occur: I choose not to answer THRIVE Score: 3 AUDIT C Alcohol Use Questionnaire (AUDIT-C) 1. How often do you have a drink containing alcohol?: 2-3 times a week 2. How many drinks containing alcohol do you have on a typical day when you are drinking?: 1 or 2 3. How often do you have six or more drinks on one occasion?: Never Total Score: 3 TALISHA-7 AMB Questionnaire TALISHA-7 Date TALISHA - 7 assessed: 10/16/24 Feeling nervous, anxious, or on edge: 0 = Not at all Not being able to stop or control worryin = Not at all Worrying too much about different things: 1 = Several days Trouble relaxin = Several days Being so restless that it is hard to sit still: 0 = Not at all Becoming easily annoyed or irritable: 0 = Not at all Feeling afraid as if something awful might happen: 0 = Not at all Total TALISHA-7 score (0-4 normal; 5-9 mild; 10-14 moderate; 15-21 severe): 2 Source: Developed by Drs. Terence Kenney, Perri Coy, Tavares Stallworth and colleagues, with an educational an from [employer]. Review of Systems Const Denies body aches, Denies chills, Denies fever(s), Denies headache(s) and Denies poor appetite Eyes Reports no additional complaints ENT Denies dysphagia, Denies dizziness, Denies headache(s) and Denies odynophagia Card Denies chest pain, Denies syncope, Denies edema, Denies irregular heart rhythm, Denies lightheadedness and Denies dyspnea Resp Denies cough and Denies dyspnea GI Denies abdominal pain, Denies constipation, Denies dysphagia, Denies diarrhea, Denies nausea, Denies odynophagia and Denies vomiting Reports no additional complaints Musc Denies abnormal gait and Reports other (right hip arthroplasty) Skin/Breast Reports system reviewed and no additional complaints, except as documented Neuro Denies abnormal gait, Denies dizziness, Denies syncope and Denies headache(s) Psych Reports no additional complaints Physical exam (Primary Care) Vital Signs: Last Vital Signs Temp 97.3 F 10/16/24 14:55 Pulse 83 10/16/24 14:55 Resp 18 10/16/24 14:55 BP 110/60 10/16/24 14:55 Pulse Ox 94 10/16/24 14:55 Oxygen Delivery Method Room Air 10/16/24 14:55 BMI result Body Mass Index 44.0 Tobacco/Smoking Status: Tobacco use Status Tobacco use date assessed 10/16/24 10/16/24 15:20 Patient Tobacco Use Status Former Tobacco user 10/16/24 14:57 Tobacco use type Cigarette 10/16/24 14:57 e-Cigarette/Vaping Use Never Used 10/16/24 14:57 PHQ-9: PHQ-9 Score PHQ-9: Total score 2 10/16/24 15:35 Depression Screening Interpretation: Negative Thrive Assessment: Date of Thrive Assessment Date Thrive assessed 10/16/24 10/16/24 15:20 Currently or been in a relationship where the following occur: I choose not to answer Const General: cooperative, healthy appearing, comfortable and no acute distress Orientation/consciousness: patient oriented x3 HENWY Head: Yes normocephalic Ears: hearing grossly normal bilaterally General nose exam: Normal external nose present Eyes General: appearance normal, both eyes and all related structures Conjunctivae: conjunctivae normal Neck Neck: Yes full ROM and Yes no lymphadenopathy Resp Effort & Inspection: normal respiratory effort Auscultation: clear to auscultation bilaterally, no crackles, no rales, no rhonchi and no wheezes Cardio Rate: regular rate Rhythm: regular rhythm Heart sounds: S1 normal heart sound present, S2 normal heart sound present and no murmurs GI Palpation (GI): Soft to palpation and nontender Auscultation: normal bowel sounds General: Yes no CVA tenderness Back/Spine/Pelvis Back: no CVA tenderness and other (right hip arthroplasty, no s/sx of infection, steri strips in place) Skin General skin exam: no rashes or lesions noted Neuro General: patient oriented x3 Gait exam (Neuro): Normal gait present Extrem General: Yes normal to inspection and Yes full ROM Right upper extremity: full ROM Left upper extremity: full ROM Right lower extremity: hip/thigh (s/p right hip surgery, steri strips in place, no s/sx of infection); no edema Left lower extremity: no edema Psych Affect: normal affect Attitude: cooperative Insight: Good insight present (Psych) Judgement: Good judgement present (Psych) Coding Level of Care Code Est Pt Level 3 (98541) Diagnoses Primary osteoarthritis of right hip M16.11 S/P total right hip arthroplasty Z96.641 Time Spent (min) 35 Assessment & Plan Assessment & Plan (1) Primary osteoarthritis of right hip: Code(s): M16.11 - Unilateral primary osteoarthritis, right hip Category: Medical (2) S/P total right hip arthroplasty: Code(s): Z96.641 - Presence of right artificial hip joint Category: Surgical Plan The patient will continue her current regimen of Lovenox 40 mg once daily for anticoagulation therapy. She is advised to monitor for any signs of bleeding and to report any concerns immediately. For pain management, the patient is encouraged to use Oxycodone sparingly, only as needed for severe pain, and to continue with NSAIDs for inflammation control. She should resume her baby aspirin regimen once the Lovenox course is completed. Monitor right hip for s/sx of infection. Follow up with orthopedics as scheduled Patient was informed and verbally consented to the use of an ambient scribe for clinic note documentation during this visit.
== END 2024-10-16 16:25 | disposition home or self-care (01) ==
LOC: HO.HMCH 14:52
PROVIDERS: PCP Internal Medicine
DX: M16.11 Unilateral primary osteoarthritis, right hip (principal); Z96.641 Presence of right artificial hip joint

== ENCOUNTER 2024-11-06 11:46 | Outpatient (REF) | payer OTHER, SELFPAY ==
--- NOTE | ~2024-11-06 | XR_ITS ---
EXAMINATION: XR PELVIS 1-2 VIEWS HISTORY: M25.559 - Pain in unspecified hip COMPARISON: Comparison is made with the prior examination dated 09/28/2024. FINDINGS: Two AP views of the pelvis are submitted. The patient is status post right total hip arthroplasty. The orthopedic elements are in anatomic alignment. There is no radiographic evidence of loosening. There is no fracture or dislocation. The soft tissues are unremarkable. XR/XR pelvis 1-2V IMPRESSION: Status post right total hip arthroplasty. Electronically signed by: Terence Azul MD 11/06/2024 01:52 PM EDT
--- OUTSIDE RECORDS SUMMARY | 2024-11-06 12:57 | XMS_ITS | Patient Health Record ---
Author Organization [facility] Address [address] [place] [address] Care Team Providers Care Credit Card Interviewer Name Role Phone Irvin (RETIRED) Merlin EMANUEL Primary Care Provide r Unavailable Terence Alexandre Unavailable [phone] Reason For Referral No Information Medications Medication [...] Family History of Cancer of Colon (Situation) (676142356) Family history of colon cancer (V16.0) Active confirmed Problem Colon cancer screening (V76.51) Active confirmed Plan Of Treatment Future Test Test Name Order Date COLONOSCOPY 08/04/2011 Insurance Providers Payer Name Payer Address Payer Phone Subscriber Number Group Number Insured Name Patient Relationship to Insured Coverage Start Date Coverage End Date MEDICAID OF [employer] [address] [place] [phone] [id number] MARY STANFORD Self - patient is the insured Medical (General) History Medical History History ICD Code Denies AR,DM,CVA,Lung disease,renal dise ase HTN Surgical History Surgery Date(Month/Year) tonsillectomy
== END 2024-11-06 11:47 | disposition home or self-care (01) ==
LOC: HO.HOSX 11:46
PROVIDERS: Visit Provider Orthopaedic Surgery
DX: Z47.1 Aftercare following joint replacement surgery (principal); M25.551 Pain in right hip; Z96.641 Presence of right artificial hip joint
CPT/HCPCS: 72170; 99212

== ENCOUNTER 2024-11-06 13:23 | Outpatient (AMB) | payer OTHER, SELFPAY ==
--- NOTE | 2024-11-06 13:29 | A.OFFVIS_ITS ---
Intake Visit Reasons: 6WKPO: R NISHI w/NE 09/30/24 Intake Note: Laura is a 58 year old female who presents today for a post operative appointment about 6 week s/p Right NISHI 09/30/24. Patient reports that she is doing well and has no concerns at this time. She has graduated from inpatient therapy but has not started outpatient PT Allergies No Known Allergies Allergy (Verified 10/16/24 15:31) HPI HPI 6WKPO: R NISHI w/NE 09/30/24: Details: Laura is a 58 year old female who presents today for a post operative appointment about 6 week s/p Right NISHI 09/30/24. Patient reports that she is do ing well and has no concerns at this time. She has graduated from inpatient therapy but has not started outpatient PT PFSH Medical History Hypertension H/O sigmoidoscopy Ulcerative colitis Arthritis Thyroid nodule Pulmonary nodules Iron (Fe) deficiency anemia PONV (postoperative nausea and vomiting) Sleep apnea Impaired fasting blood sugar HTN (hypertension) Asthma Morbid obesity Surgical History History of hernia repair (~2020) History of hysterectomy Hx of tonsillectomy Hx of colonoscopy Family History Mother Vascular dementia Colon cancer Father No problems noted. 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 Right NISHI in expected post operative position with no hardware complications or evidence of loosening Assessment & Plan Assessment & Plan (1) S/P total right hip arthroplasty: Code(s): Z96.641 - Presence of right artificial hip joint Category: Surgical Plan: Laura is doing well. She should continue activity as tolerated and her HEP and posterior hip pracautions. She may resume discontinue lovenox and resume her pre op asa. f/u 6 weeks Orders: Orders XR pelvis 1-2V 11/06/24 M25.559 - Pain in unspecified hip Coding Level of Care Code Global (11084) Diagnoses S/P total right hip arthroplasty Z96.641
== END 2024-11-06 14:05 | disposition home or self-care (01) ==
LOC: HO.HOS 13:24
PROVIDERS: PCP Internal Medicine; Visit Provider Orthopaedic Surgery
DX: Z96.641 Presence of right artificial hip joint (principal)
CPT/HCPCS: 99024

== ENCOUNTER → 2024-11-06 13:32 | Outpatient (BNV) | payer OTHER, SELFPAY | PROVIDERS: Visit Provider Radiology Diagnostic Radiology | DX: M25.551 Pain in right hip (principal); Z96.641 Presence of right artificial hip joint | CPT/HCPCS: 72170 ==

== ENCOUNTER 2024-12-15 13:38 | Outpatient (AMB) | payer OTHER, SELFPAY ==
[2024-12-15 13:41] VITALS: BMI 43.9
--- NOTE | 2024-12-15 13:41 | MHC.OFFVIS ---
Vital Signs 12/15/24 13:41 Height 5 ft 5 in Weight 264 lb BMI 43.9 Intake Visit Reasons: PO: R NISHI w/NE 09/30/24 Intake Note: Laura is a 58 year old female who presents today for a post operative appointment about 3 months s/p Right NISHI 09/30/24. Patient reported that she is doing well but has some difficulty laying on her right side and has been with lateral movement of right leg. Allergies No Known Allergies Allergy (Verified 12/15/24 13:57) HPI HPI PO: R NISHI w/NE 09/30/24: Details: Laura is a 58 year old female who presents today for a post operative appointment about 3 months s/p Right NISHI 09/30/24. Patient reported that she is doing well but has some difficulty laying on her right side and has been with lateral movement of right leg. PFSH Medical History Hypertension H/O sigmoidoscopy Ulcerative colitis Arthritis Thyroid nodule Pulmonary nodules Iron (Fe) deficiency anemia PONV (postoperative nausea and vomiting) Sleep apnea Impaired fasting blood sugar HTN (hypertension) Asthma Morbid obesity Surgical History History of hernia repair (~2020) History of hysterectomy Hx of tonsillectomy Hx of colonoscopy Family History Mother Vascular dementia Colon cancer Father No problems noted. 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 No pain with hip range of motion. Normal gait. Vital Signs: BMI result Body Mass Index 43.9 Assessment & Plan Assessment & Plan (1) S/P total right hip arthroplasty: Code(s): Z96.641 - Presence of right artificial hip joint Category: Surgical Plan: Laura is doing very well 3 months status post right hip replacement. She may return to work without restrictions on January 12 and 4 weeks' time. I think she needs another month to get her full mobility back. We discussed this she can follow up to see me at the 1 year time point or sooner if there are any issues. Coding Level of Care Code Global (67464) Diagnoses S/P total right hip arthroplasty Z96.641
--- OUTSIDE RECORDS SUMMARY | 2024-12-15 15:56 | XMS_ITS | Patient Health Record ---
Author Organization [facility] Address [address] [place] [address] Care Team Providers Care Talent Analyst Name Role Phone Irvin (RETIRED) Merlin EMANUEL Primary Care Provide r Unavailable Terence Alexandre Unavailable [phone] Reason For Referral No Information Medications Medication [...] Family History of Cancer of Colon (Situation) (530056304) Family history of colon cancer (V16.0) Active confirmed Problem Colon cancer screening (347257984) Colon cancer screening (V76.51) Active confirmed Plan Of Treatment Future Test Test Name Order Date COLONOSCOPY 08/04/2011 Insurance Providers Payer Name Payer Address Payer Phone Subscriber Number Group Number Insured Name Patient Relationship to Insured Coverage Start Date Coverage End Date MEDICAID OF [employer] [address] [place] [phone] [id number] MARY STANFORD Self - patient is the insured Medical (General) History Medical History History ICD Code Denies CA,DM,CVA,Lung disease,renal dise ase HTN Surgical History Surgery Date(Month/Year) tonsillectomy
== END 2024-12-15 14:00 | disposition home or self-care (01) ==
LOC: HO.HOS 13:39
PROVIDERS: Visit Provider Orthopaedic Surgery
DX: Z96.641 Presence of right artificial hip joint (principal)
CPT/HCPCS: 99024

== ENCOUNTER → 2024-12-15 13:38 | Outpatient (BNVA) | payer OTHER, SELFPAY | PROVIDERS: Visit Provider Orthopaedic Surgery | DX: Z47.1 Aftercare following joint replacement surgery (principal); Z96.641 Presence of right artificial hip joint | CPT/HCPCS: 99212 ==

== ENCOUNTER 2025-01-07 09:50 | Outpatient (AMB) | payer OTHER, SELFPAY ==
--- NOTE | 2025-01-07 09:53 | MHC.OFFVIS ---
Intake Visit Reasons: INJ- Euflexxa #1 B/L Knee Intake Note: Laura is a 59 year old female who presents with complaints of bilateral knee pains. She describes her pains as sharp in nature. She has failed the last 3 months of conservative treatment. She has had viscosupplementation injections in the past which gave her fairly good relief. Allergies No Known Allergies Allergy (Verified 12/15/24 13:57) Medication List - Last Reconciled 01/07/25 by Stanford Dueñas MD albuterol sulfate 90 mcg/actuation 2 puffs inhalation Q4-6H PRN amlodipine 10 mg PO BEDTIME 90 days cyanocobalamin (vitamin B-12) 1,000 mcg PO QAM docusate sodium 100 mg PO DAILY ferrous gluconate 240 mg PO QAM 90 days [Raised toilet seat duration - 99 days] [SHOWER CHAIR Duration 99 days] vedolizumab (Entyvio) 300 mg IV Q6W 6 months walker Folding Front wheeled walker Duration 99 days zinc acetate (Galzin) 50 mg PO DAILY PFSH Medical History Hypertension H/O sigmoidoscopy Ulcerative colitis Arthritis Thyroid nodule Pulmonary nodules Iron (Fe) deficiency anemia PONV (postoperative nausea and vomiting) Sleep apnea Impaired fasting blood sugar HTN (hypertension) Asthma Morbid obesity Surgical History History of hernia repair (~2020) History of hysterectomy Hx of tonsillectomy Hx of colonoscopy Family History Mother Vascular dementia Colon cancer Father No problems noted. 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 Cognitive needs: No Hearing needs: No Vision needs: No Physical Exam Extrem Other: Bilateral knee examination shows minimal effusions, palpable crepitus with range of motion, pain with range of motion, no instability Office Procedures AMB Joint Injection/Aspiration Joint Injection/Aspiration Primary Site: left knee Prep: site was prepped using aseptic technique Injected: 20 mg of (Euflexxa viscosupplementation), with 4 mL of and 1% plain lidocaine Procedure: The patient tolerated the procedure well Coding 50161 - Large joint Procedure code (CPT) selection complete AMB Joint Injection/Aspiration Joint Injection/Aspiration Primary Site: right knee Prep: site was prepped using aseptic technique Injected: 20 mg of (Euflexxa viscosupplementation), with 4 mL of and 1% plain lidocaine Procedure: The patient tolerated the procedure well Coding 22742 - Large joint Procedure code (CPT) selection complete Results Reviewed Results Reviewed: X-rays of the patient's bilateral knees taken previously show joint space narrowing, subchondral sclerosis, no acute bony abnormalities Assessment & Plan Assessment & Plan (1) Osteoarthritis of left knee: Code(s): M17.12 - Unilateral primary osteoarthritis, left knee Category: Medical (2) Osteoarthritis of right knee: Code(s): M17.11 - Unilateral primary osteoarthritis, right knee Category: Medical Plan Ms. Branham presents with bilateral knee pains due to osteoarthritis. The risks and benefits of bilateral knee Euflexxa injections were discussed at length with the patient. The patient wished to proceed. She tolerated the 1st set of injections well. She will continue with her home exercise program. She will follow up next week as scheduled. Feel free to call me at any time should questions regarding her orthopedic management arise. I spent 20 minutes in reviewing the patient's records and imaging studies, seeing the patient and documenting in the medical record. Orders: Orders AMB Joint Injection/Aspiration Today M17.12 - Unilateral primary osteoarthritis, left knee AMB Joint Injection/Aspiration Today M17.11 - Unilateral primary osteoarthritis, right knee Coding Level of Care Code Est Pt Level 3 (80651) Complex EM visit Add On G2211 Diagnoses Osteoarthritis of left knee M17.12 Osteoarthritis of right knee M17.11 CPT Codes Coding - 83058 Large joint: 59656 - Large joint ([id number]) Coding - 87765 Large joint: 27687 - Large joint ([id number])
--- OUTSIDE RECORDS SUMMARY | 2025-01-07 11:51 | XMS_ITS | Patient Health Record ---
Author Organization [facility] Address [address] [place] [address] Care Team Providers Care Speech And Language Tutor Name Role Phone Irvin (RETIRED) Merlin EMANUEL Primary Care Provide r Unavailable Terence Alexandre Unavailable [phone] Reason For Referral No Information Medications Medication SIG (Take, Route, Frequency, Duration) Notes Start Date End Date Status Colyte with Flavor Packs 240 GM 1 ml one time Orally as directed; Duration: 1 day(s) 08/04/2011 Active Implanon 68mg Active Aspir-81 82mg Active amLODIPine Besylate 5mg 03/12/202403/12 Active Problems Problem Type SNOMED Code ICD Code Onset Dates Problem Status W/U Status Risk Notes Problem Family History of Cancer of Colon (Situation) ([id number]) Family history of colon cancer (V16.0) Active confirmed Problem Colon cancer screening (866416130) Colon cancer screening (V76.51) Active confirmed Plan Of Treatment Future Test Test Name Order Date COLONOSCOPY 08/04/2011 Insurance Providers Payer Name Payer Address Payer Phone Subscriber Number Group Number Insured Name Patient Relationship to Insured Coverage Start Date Coverage End Date MEDICAID OF [employer] [address] [place] [phone] [id number] MARYSTANFORD SOLANO Self - patient is the insured Medical (General) History Medical History History ICD Code Denies [place],DM,CVA,Lung disease,renal dise ase HTN Surgical History Surgery Date(Month/Year) tonsillectomy
== END 2025-01-07 10:29 | disposition home or self-care (01) ==
LOC: HO.HOS 09:51
PROVIDERS: Visit Provider Orthopaedic Surgery
DX: M17.0 Bilateral primary osteoarthritis of knee (principal)
CPT/HCPCS: 20610

== ENCOUNTER → 2025-01-07 09:50 | Outpatient (BNVA) | payer OTHER, SELFPAY | PROVIDERS: Visit Provider Orthopaedic Surgery | DX: M17.0 Bilateral primary osteoarthritis of knee (principal) | CPT/HCPCS: 20610; J2003; J7323 ==

== ENCOUNTER 2025-01-13 14:35 | Outpatient (AMB) | payer OTHER, SELFPAY ==
[2025-01-13 14:49] VITALS: BMI 43.9
--- NOTE | 2025-01-13 14:49 | MHC.OFFVIS ---
Vital Signs 01/13/25 14:49 Height 5 ft 5 in Weight 264 lb BMI 43.9 Intake Visit Reasons: INJ- Euflexxa #2 B/L Knee Intake Note: Ms. Branham presents for follow-up of her bilateral knee pains. She states that she got mild relief from the 1st set of Euflexxa injections. She continues with her home exercise program. She has returned to work. Allergies No Known Allergies Allergy (Verified 01/13/25 14:49) Medication List - Last Reconciled 01/14/25 by Stanford Dueñas MD albuterol sulfate 90 mcg/actuation 2 puffs inhalation Q4-6H PRN amlodipine 10 mg PO BEDTIME 90 days cyanocobalamin (vitamin B-12) 1,000 mcg PO QAM docusate sodium 100 mg PO DAILY ferrous gluconate 240 mg PO QAM 90 days [Raised toilet seat duration - 99 days] [SHOWER CHAIR Duration 99 days] vedolizumab (Entyvio) 300 mg IV Q6W 6 months walker Folding Front wheeled walker Duration 99 days zinc acetate (Galzin) 50 mg PO DAILY PFSH Medical History Hypertension H/O sigmoidoscopy Ulcerative colitis Arthritis Thyroid nodule Pulmonary nodules Iron (Fe) deficiency anemia PONV (postoperative nausea and vomiting) Sleep apnea Impaired fasting blood sugar HTN (hypertension) Asthma Morbid obesity Surgical History History of hernia repair (~2020) History of hysterectomy Hx of tonsillectomy Hx of colonoscopy Family History Mother Vascular dementia Colon cancer Father No problems noted. 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 Cognitive needs: No Hearing needs: No Vision needs: No Physical Exam Vital Signs: BMI result Body Mass Index 43.9 Extrem Other: Bilateral knee examination shows minimal effusions, palpable crepitus with range of motion, pain with range of motion, no instability Office Procedures AMB Joint Injection/Aspiration Joint Injection/Aspiration Primary Site: left knee Prep: site was prepped using aseptic technique Injected: 20 mg of (Euflexxa viscosupplementation), with 4 mL of and 1% plain lidocaine Procedure: The patient tolerated the procedure well Coding - Large joint Procedure code (CPT) selection complete AMB Joint Injection/Aspiration Joint Injection/Aspiration Primary Site: right knee Prep: site was prepped using aseptic technique Injected: 20 mg of (Euflexxa viscosupplementation), with 4 mL of and 1% plain lidocaine Procedure: The patient tolerated the procedure well Coding 53535 - Large joint Procedure code (CPT) selection complete Assessment & Plan Assessment & Plan (1) Osteoarthritis of left knee: Code(s): M17.12 - Unilateral primary osteoarthritis, left knee Category: Medical (2) Osteoarthritis of right knee: Code(s): M17.11 - Unilateral primary osteoarthritis, right knee Category: Medical Plan Ms. Branham presents with bilateral knee pains due to osteoarthritis. The risks and benefits of a 2nd set of Euflexxa injections were discussed at length with the patient. The patient wished to proceed. She tolerated the bilateral knee injections well. She will continue with her home exercise program. She will follow up next week as scheduled. Orders: Orders AMB Joint Injection/Aspiration 01/13/25 M17.12 - Unilateral primary osteoarthritis, left knee AMB Joint Injection/Aspiration 01/13/25 M17.11 - Unilateral primary osteoarthritis, right knee Coding Level of Care Code Procedure Only Diagnoses Osteoarthritis of left knee M17.12 Osteoarthritis of right knee M17.11 CPT Codes Coding - 41757 Large joint: 45247 - Large joint ([id number]) Coding - 01458 Large joint: 98469 - Large joint ([id number])
--- OUTSIDE RECORDS SUMMARY | 2025-01-13 17:38 | XMS_ITS | Patient Health Record ---
Author Organization [facility] Address [address] [place] [address] Care Team Providers Care Manager Manufacturing Name Role Phone Irvin (RETIRED) Merlin EMANUEL Primary Care Provide r Unavailable Terence Alexandre Unavailable [phone] Reason For Referral No Information Medications Medication [...] Family History of Cancer of Colon (Situation) ([id number]) Family history of colon cancer (V16.0) Active confirmed Problem Colon cancer screening (964162457) Colon cancer screening (V76.51) Active confirmed Plan Of Treatment Future Test Test Name Order Date COLONOSCOPY 08/04/2011 Insurance Providers Payer Name Payer Address Payer Phone Subscriber Number Group Number Insured Name Patient Relationship to Insured Coverage Start Date Coverage End Date MEDICAID OF [employer] [address] [place] [phone] [id number] MARYSTANFORD SOLANO Self - patient is the insured Medical (General) History Medical History History ICD Code Denies NC,DM,CVA,Lung disease,renal dise ase HTN Surgical History Surgery Date(Month/Year) tonsillectomy
== END 2025-01-13 14:58 | disposition home or self-care (01) ==
LOC: HO.HOS 14:36
PROVIDERS: Visit Provider Orthopaedic Surgery
DX: M17.0 Bilateral primary osteoarthritis of knee (principal)
CPT/HCPCS: 20610

== ENCOUNTER → 2025-01-13 14:35 | Outpatient (BNVA) | payer OTHER, SELFPAY | PROVIDERS: Visit Provider Orthopaedic Surgery | DX: M17.0 Bilateral primary osteoarthritis of knee (principal) | CPT/HCPCS: 20610; J2003; J7323 ==

== ENCOUNTER 2025-01-20 14:36 | Outpatient (AMB) | payer OTHER, SELFPAY ==
--- NOTE | 2025-01-20 14:38 | A.OFFVIS_ITS ---
Vital Signs 01/20/25 14:39 Height 5 ft 5 in Weight 264 lb BMI 43.9 Intake Visit Reasons: INJ- Euflexxa #3 B/L Knee Intake Note: Laura is a 59 year old female who presents today for an injection in her bilateral knee, Euflexxa #3. She states that she has gotten mild relief from the 1st 2 injections. She continues with her home exercise program. Allergies No Known Allergies Allergy (Verified 01/13/25 14:49) Medication List - Last Reconciled 01/20/25 by Stanford Dueñas MD albuterol sulfate 90 mcg/actuation 2 puffs inhalation Q4-6H PRN amlodipine 10 mg PO BEDTIME 90 days cyanocobalamin (vitamin B-12) 1,000 mcg PO QAM docusate sodium 100 mg PO DAILY ferrous gluconate 240 mg PO QAM 90 days [Raised toilet seat duration - 99 days] [SHOWER CHAIR Duration 99 days] vedolizumab (Entyvio) 300 mg IV Q6W 6 months walker Folding Front wheeled walker Duration 99 days zinc acetate (Galzin) 50 mg PO DAILY PFSH Medical History Hypertension H/O sigmoidoscopy Ulcerative colitis Arthritis Thyroid nodule Pulmonary nodules Iron (Fe) deficiency anemia PONV (postoperative nausea and vomiting) Sleep apnea Impaired fasting blood sugar HTN (hypertension) Asthma Morbid obesity Surgical History History of hernia repair (~2020) History of hysterectomy Hx of tonsillectomy Hx of colonoscopy Family History Mother Vascular dementia Colon cancer Father No problems noted. 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 Cognitive needs: No Hearing needs: No Vision needs: No Physical Exam Vital Signs: BMI result Body Mass Index 43.9 Extrem Other: Bilateral knee examination shows minimal effusions, palpable crepitus with range of motion, pain with range of motion, no instability Office Procedures AMB Joint Injection/Aspiration Joint Injection/Aspiration Primary Site: left knee Prep: site was prepped using aseptic technique Injected: 20 mg of (Euflexxa viscosupplementation), with 4 mL of and 1% plain lidocaine Procedure: The patient tolerated the procedure well Coding - Large joint Procedure code (CPT) selection complete AMB Joint Injection/Aspiration Joint Injection/Aspiration Primary Site: right knee Prep: site was prepped using aseptic technique Injected: 20 mg of (Euflexxa viscosupplementation), with 4 mL of and 1% plain lidocaine Procedure: The patient tolerated the procedure well Coding 07305 - Large joint Procedure code (CPT) selection complete Assessment & Plan Assessment & Plan (1) Osteoarthritis of left knee: Code(s): M17.12 - Unilateral primary osteoarthritis, left knee Category: Medical (2) Osteoarthritis of right knee: Code(s): M17.11 - Unilateral primary osteoarthritis, right knee Category: Medical Plan Ms. Branham presents with bilateral knee pains due to osteoarthritis. The risks and benefits of a 3rd set of Euflexxa injections were discussed at length with the patient. The patient wished to proceed. She tolerated the injections well. She will continue with her home exercise program. She will contact me prior to her follow-up appointment in 3 months should any questions or concerns arise. Feel free to call me at any time should questions regarding her orthopedic management arise. Orders: Orders AMB Joint Injection/Aspiration Today M17.12 - Unilateral primary osteoarthritis, left knee AMB Joint Injection/Aspiration Today M17.11 - Unilateral primary osteoarthritis, right knee Coding Level of Care Code Procedure Only Diagnoses Osteoarthritis of left knee M17.12 Osteoarthritis of right knee M17.11 CPT Codes Coding - 26591 Large joint: 72517 - Large joint ([id number]) Coding - 69945 Large joint: 21100 - Large joint ([id number])
[2025-01-20 14:39] VITALS: BMI 43.9
== END 2025-01-20 15:03 | disposition home or self-care (01) ==
LOC: HO.HOS 14:37
PROVIDERS: Visit Provider Orthopaedic Surgery
DX: M17.0 Bilateral primary osteoarthritis of knee (principal)
CPT/HCPCS: 20610

== ENCOUNTER → 2025-01-20 14:36 | Outpatient (BNVA) | payer OTHER, SELFPAY | PROVIDERS: Visit Provider Orthopaedic Surgery | DX: M17.0 Bilateral primary osteoarthritis of knee (principal) | CPT/HCPCS: 20610; J2003; J7323 ==

== ENCOUNTER 2025-02-04 12:18 | Outpatient (REF) | payer OTHER, SELFPAY ==
[2025-02-04 13:57] LABS: Cholesterol 220 mg/dL (<200); HDL Cholesterol 63 mg/dL (>40); Triglycerides 114 mg/dL (<150)
== END 2025-02-04 12:19 | disposition home or self-care (01) ==
LOC: HO.LAB 12:18
PROVIDERS: Visit Provider Internal Medicine
DX: K62.5 Hemorrhage of anus and rectum (principal); E78.00 Pure hypercholesterolemia, unspecified
CPT/HCPCS: 36415; 80061; 84630